=== PATIENT | female | born 1930 | race American Indian/Alaskan Native ===

== ENCOUNTER 2017-02-08 06:15 | Inpatient (IN) | payer MEDICARE, BC ==
[2017-02-08 06:23] VITALS: BMI 30.2
[2017-02-08 07:11] LABS: ALKALINE PHOSPHATASE 79 U/L (38-133); ALT/SGPT 23 U/L (7-56); AST/SGOT 30 U/L (15-39); BILIRUBIN,TOTAL 0.9 mg/dL (0.2-1.3); BLOOD UREA NITROGEN 17 mg/dL (7-21); CALCIUM 9.3 mg/dL (8.4-10.5); CARBON DIOXIDE 27 mmol/L (21-33); CHLORIDE 102 mmol/L (98-107); GFR AFRICAN-AMERICAN > 60; GLUCOSE,RANDOM 111 mg/dL (70-110); SODIUM 140 mmol/L (132-148); TOTAL PROTEIN 7.9 g/dL (5.8-8.3)
--- NOTE | 2017-02-08 07:13 | ED PDOC ---
Arrival/HPI - General Chief Complaint: Weakness/Neurological Deficit Time Seen by Provider: 02/08/17 07:05 Historian: Family (Daughter) - History of Present Illness Narrative History of Present Illness (Text): 02/08/17 07:11 86 year old female whose past medical history includes dementia (baseline confused), hypertension, presents to the emergency department from home with increasing weakness and leg swelling. As per daughter patient has been increasingly weak, refusing to get out of bed. Denies complaints of pain, just body aches. No cough, nausea, vomiting, or other complaints. Symptom Onset: Gradual Symptom Course: Worsening Modifying Factors (Text): None Context: Home Past Medical History - Provider Review Nursing Documentation Reviewed: Yes - Infectious Disease Hx of Infectious Diseases: None - Tetanus Immunization Tetanus Immunization: Unknown - Cardiac Hx Cardiac Disorders: Yes (Cardiac Cath) Hx Hypertension: Yes - Pulmonary Hx Chronic Obstructive Pulmonary Disease (COPD): Yes - Neurological HX Cerebrovascular Accident: Yes (2007) Hx Dementia: Yes - HEENT Hx HEENT Disorder: No - Renal Hx Renal Disorder: No - Endocrine/Metabolic Hx Endocrine Disorders: No - Hematological/Oncological Hx Blood Disorders: No - Integumentary Hx Dermatological Disorder: Yes Other/Comment: outer aspect left foot/heel ankle discolored swollen - Musculoskeletal/Rheumatological Hx Arthritis: Yes Hx Falls: Yes - Gastrointestinal Hx Gastroesophageal Reflux: Yes - Genitourinary/Gynecological Hx Genitourinary Disorders: No Hx Reproductive Disorders: No - Psychiatric Hx Depression: No Hx Emotional Abuse: No Hx Physical Abuse: No Hx Substance Use: No Other/Comment: dementia - Past Surgical History Past Surgical History: Non-Contributing - Surgical History Hx Cardiac Catheterization: Yes (pt does not recall catherization) Hx Cholecystectomy: Yes Hx Thyroidectomy: Yes (partial) Other/Comment: left breast benign cyst, left ovary removed - Anesthesia Hx Anesthesia: No - Suicidal Assessment Feels Threatened In Home Enviroment: No Family/Social History - Physician Review Nursing Documentation Reviewed: Yes Family/Social History: Unknown Family HX Smoking Status: Never Smoked Hx Alcohol Use: No Hx Substance Use: No Hx Substance Use Treatment: No Allergies/Home Meds Allergies/Adverse Reactions: Allergies No Known Allergies Allergy (Verified 02/08/17 06:39) Home Medications: Home Meds Medication Instructions Recorded Confirmed Aspirin [Ecotrin] 81 mg PO DAILY 01/11/16 02/08/17 Celecoxib 200 mg PO DAILY 02/08/17 02/08/17 Memantine HCl 10 mg PO BID 02/08/17 02/08/17 Omeprazole 20 mg PO DAILY 02/08/17 02/08/17 Review of Systems - Review of Systems Systems not reviewed;Unavailable: Dementia Respiratory: absent: Cough Cardiovascular: Other (lower extremity swelling) Gastrointestinal: absent: Nausea, Vomiting Musculoskeletal: Arthralgias Physical Exam Vital Signs Reviewed: Yes Vital Signs Temp Pulse Resp BP Pulse Ox 02/08/17 09:23 74 18 131/56 L 99 02/08/17 06:23 97.9 F 73 18 134/62 99 Temperature: Afebrile Blood Pressure: Normal Pulse: Regular Respiratory Rate: Normal Appearance: Positive for: Well-Appearing, Non-Toxic, Comfortable Pain Distress: None Mental Status: Positive for: Confused (Baseline mental status, hx dementia) - Systems Exam Head: Present: Atraumatic, Normocephalic Pupils: Present: PERRL Extroacular Muscles: Present: EOMI Conjunctiva: Present: Normal Mouth: Present: Moist Mucous Membranes Neck: Present: Normal Range of Motion Respiratory/Chest: Present: Clear to Auscultation, Good Air Exchange. No: Respiratory Distress, Accessory Muscle Use Cardiovascular: Present: Regular Rate and Rhythm, Normal S1, S2. No: Murmurs Abdomen: Present: Normal Bowel Sounds. No: Tenderness, Distention, Peritoneal Signs Back: Present: Normal Inspection Upper Extremity: Present: Normal Inspection. No: Cyanosis, Edema Lower Extremity: Present: Swelling (1+ bilaterally) Neurological: Present: GCS=15, CN II-XII Intact Skin: Present: Warm, Dry, Normal Color. No: Rashes Psychiatric: Present: Other (Baseline confused, hx dementia) Medical Decision Making ED Course and Treatment: Impression: 86 year old female whose past medical history includes dementia ( baseline confused), hypertension, presents to the emergency department from home with increasing weakness and leg swelling. Differential Diagnosis include but are not limited to: Plan: -- EKG, Chest X-ray -- Labs -- Reassess and disposition Prior Visits: Notes and results from previous visits were reviewed. Patient last seen in ED on 11/25/16 for frequent falls and admitted for generalized weakness, syncope Progress Notes: 02/08/17 08:09 noted bnp lasix given. pt with multiple comorbitites, failure to thrive, poor outpt candidate, need PT eval for gait dysfunction, needs inpt admission, iv diuresis 02/08/17 08:[address] price accepted - Lab Interpretations Lab Results: 02/08/17 06:30 02/08/17 06:30 Lab Results 02/08/17 06:30: Troponin I 0.07, NT-Pro-B Natriuret Pep 793 H 02/08/17 06:30: Sodium 140, Potassium 3.9, Chloride 102, Carbon Dioxide 27, Anion Gap 15, BUN 17, Creatinine 0.9, Est GFR ( Amer) > 60, Est GFR (Non- Af Amer) 59, Random Glucose 111 H, Calcium 9.3, Total Bilirubin 0.9, AST 30, ALT 23, Alkaline Phosphatase 79, Total Protein 7.9, Albumin 4.0, Globulin 3.9, Albumin/Globulin Ratio 1.0 L 02/08/17 06:30: WBC 7.6 D, RBC 4.19, Hgb 11.8 L, Hct 35.5 L, MCV 84.7, MCH 28.2 , MCHC 33.2, RDW 13.7, Plt Count 244, MPV 10.1 - RAD Interpretation Narrative RAD Interpretations (Text): Chest X-ray Network Engineer: Quiana Morales MD IMPRESSION: No focal consolidation, significant pleural effusion, or definite pneumothorax identified. Radiology Orders: 02/08/17 06:43 CHEST PORTABLE [RAD] Stat Construction Plant Operator: Radiologist - EKG Interpretation EKG Interpretation (Text): EKG shows NSR at [address]/T wave changes Interpreted by ED Physician: Yes Type: 12 lead EKG - Medication Orders Current Medication Orders: Discontinued Medications Furosemide (Lasix) 20 mg IVP STAT STA Stop: 02/08/17 08:10 Last Admin: 02/08/17 09:23 Dose: 20 mg - Scribe Statement The provider has reviewed the documentation as recorded by the Chi Leyva Provider Scribe Attestation: All medical record entries made by the Chi were at my direction and personally dictated by me. I have reviewed the chart and agree that the record accurately reflects my personal performance of the history, physical exam, medical decision making, and the department course for this patient. I have also personally directed, reviewed, and agree with the discharge instructions and disposition. Disposition/Present on Arrival - Present on Arrival Any Indicators Present on Arrival: No History of DVT/PE: No History of Uncontrolled Diabetes: No Urinary Catheter: No History of Decub. Ulcer: No History Surgical Site Infection Following: None - Disposition Have Diagnosis and Disposition been Completed?: Yes Diagnosis: CHF (congestive heart failure), Failure to thrive, Weakness generalized Disposition: HOSPITALIZED Disposition Time: 08:10 Patient Problems: Current Active Problems Problem Status Onset CHF (congestive heart failure) Acute Failure to thrive Acute Weakness generalized Acute Condition: FAIR
[2017-02-08 07:18] LABS: HEMATOCRIT 35.5 % (36.0-48.0); MEAN CELL VOLUME 84.7 fL (80.0-105.0); MEAN CORPUSCULAR HEMOGLOBIN 28.2 pg (25.0-35.0); MEAN CORPUSCULAR HGB CONC 33.2 g/dl (31.0-37.0); MEAN PLATELET VOLUME 10.1 fl (7.0-11.0); RED CELL DISTRIBUTION WIDTH 13.7 % (11.5-14.5); WHITE BLOOD COUNT 7.6 10^3/ul (4.5-11.0)
[2017-02-08 07:23] LABS: POTASSIUM 3.9 mmol/L (3.6-5.0)
[2017-02-08 07:56] LABS: TROPONIN I 0.07 ng/mL
--- NOTE | 2017-02-08 08:30 | RAD ---
HISTORY: weakness COMPARISON: Chest x-ray performed 11/25/16 TECHNIQUE: Chest, one view. FINDINGS: Examination limited by habitus. External cardiac monitoring leads. LUNGS: No focal consolidation. Please note that chest x-ray has limited sensitivity for the detection of pulmonary masses. PLEURA: No significant pleural effusion identified. No definite pneumothorax. CARDIOVASCULAR: Heart size appears within normal limits. Atherosclerotic calcifications of the aorta. OSSEOUS STRUCTURES: Degenerative changes of the spine. VISUALIZED UPPER ABDOMEN: Unremarkable. OTHER FINDINGS: Metallic clips project over the left lower neck. IMPRESSION: No focal consolidation, significant pleural effusion, or definite pneumothorax identified.
--- NOTE | 2017-02-08 09:08 | CARD ---
APPROVED REPORT EKG Measurement Heart [id number] <Conclusion> Normal sinus rhythm Voltage criteria for left ventricular hypertrophy Abnormal ECG
[2017-02-08 09:18] LABS: URINE BILIRUBIN NEGATIVE (NEGATIVE); URINE BLOOD TRACE-INTACT (NEGATIVE); URINE GLUCOSE (UA) NEGATIVE (NEGATIVE); URINE KETONE NEGATIVE (NEGATIVE); URINE LEUKOCYTE ESTERASE NEGATIVE Leu/uL (NEGATIVE); URINE PROTEIN TRACE mg/dL (<30 mg/dL)
[2017-02-08 09:31] LABS: URINE APPEARANCE CLEAR (CLEAR); URINE COLOR YELLOW (YELLOW)
[2017-02-08 09:36] LABS: URINE BACTERIA FEW (NEG); URINE RBC 0 - 2 /hpf (0-2)
[2017-02-08] MEDS ORDERED: Pneumococcal 23-Valent Vaccine IM ONE (14:13)
--- NOTE | 2017-02-09 11:16 | HP ---
CHIEF COMPLAINT: Generalized weakness, failure to thrive, decreased activity and shortness of breath . HISTORY OF PRESENT ILLNESS: This is an 86-year-old woman we have known for many years who was home t aken care of by her devoted family. For the recent case, she has had slight change in her mental sta tus, more groggy, lethargic, weak, less ambulatory with poor p.o. intake of food and fluids on the mo rning of admission and the evening before. She was noted to be more short of breath with trying to a mbulate about the room prompting her family to bring her to the Emergency Room. In the ER, there is no clear evidence of infection, but BNP was elevated. She was found to be in mild congestive heart f ailure and arrangements were made for her to be admitted. PAST MEDICAL HISTORY: Significant for mild dementia, in 2007. She has a history of TIA, Cunningham tt's esophagus, diverticulitis, COPD, gastroesophageal reflux disease and hypertension. She is statu s post thyroidectomy. She also has a history of osteoarthritis, spinal stenosis and is status post c holecystectomy. She has a history of coronary artery disease. She is status post left oophorectomy and biopsy of a benign left breast cyst. SOCIAL HISTORY: She does not smoke, never did. Does not drink alcohol. ALLERGIES: She has no known allergies to medications. CURRENT MEDICATIONS: At the time of admission, medications include aspirin, omeprazole, lisinopril, Tylenol, Namenda and Celebrex. REVIEW OF SYSTEMS: Otherwise, unremarkable. I am uncertain as to the reliability of the patient's a nswers and response to my questioning. PHYSICAL EXAMINATION: GENERAL: The patient was seen in the Emergency Room, slot #1, this Saturday morning. She is awake and alert, but a little bit confused, does not clearly focus on detailed conversation. She is being see n with her 2 daughters at the bedside. HEAD AND NECK: Unremarkable. Conjunctivae are pink. Mucous membranes are moist. Neck is supple wi thout masses. There is no JVD noted. Thyroid is not palpable. LUNGS: Show good aeration, right and left, with rales at both right and left bases. HEART: Regular, not tachycardic. ABDOMEN: Soft, mildly overweight, nontender with no guarding or rebound. No palpable masses. EXTREMITIES: Show +1 to +2 pitting edema in both lower extremities, more so on the right as shown to the patient's daughters. LABORATORY DATA: On admission shows a white count to be normal at 7.6, H and H of 11 and 35. Chemis tries are essentially unremarkable except for a glucose of 111. A BNP of 793. Urinalysis is essenti ally unremarkable except for dark concentrated urine with a specific gravity of 1.025 and a few bacte katlyn noted in the urine. IMPRESSION: 1. Mild congestive heart failure. 2. Failure to thrive. 3. History of hypertension. 4. History of coronary artery disease. 5. Osteoarthritis. 6. History of mild dementia. PLAN: IV Lasix given in the ER. Will continue tomorrow and reassess clinical situation. Continue h ome medications including Namenda, proton pump inhibitor or H2 alfonso, p.r.n. Tylenol for arthritis pain, lisinopril for hypertension and her baby aspirin for coronary and atherosclerotic cerebrovascul ar underlying disease. I spoke with the family about discharge planning and they request she be eval uated for [facility] rehab facility for some of the course of subacute rehabilitation after this hospi clif admission. I will ask caseworkers and social work services to work in that direction. The case was discussed at length with in the Emergency Room as well as with the family. I spoke wit h them about their ability to care for the mom at home and the need for physical therapy and close me dical outpatient followup after returning home. Pan Be MD cc: [id number] TT: 02/09/2017 11:15:40
[2017-02-09 15:59] LABS: URINE BILIRUBIN NEGATIVE (NEGATIVE); URINE BLOOD TRACE-INTACT (NEGATIVE); URINE GLUCOSE (UA) NEGATIVE (NEGATIVE); URINE KETONE NEGATIVE (NEGATIVE); URINE LEUKOCYTE ESTERASE SMALL Leu/uL (NEGATIVE); URINE PROTEIN NEGATIVE mg/dL (<30 mg/dL); URINE UROBILINOGEN 0.2 E.U./dL (<1 E.U./dL)
[2017-02-09 16:02] LABS: URINE APPEARANCE CLEAR (CLEAR); URINE COLOR YELLOW (YELLOW)
[2017-02-09 16:13] LABS: URINE BACTERIA TRACE (NEG); URINE EPITHELIAL CELLS 0 - 2 /hpf (0-5); URINE RBC 0 - 2 /hpf (0-2); URINE WBC 0 - 2 /hpf (0-6)
[2017-02-10 08:49] LABS: ADD MANUAL DIFF? NO
[2017-02-10 09:08] LABS: BASO # 0.03 K/mm3 (0.0-2.0); BASO % 0.5 % (0.0-3.0); EOS # 0.1 (0.0-0.7); EOS % 2.1 % (1.5-5.0); GRAN # 3.18 (1.4-6.5); GRAN % 52.3 % (50.0-68.0); HEMATOCRIT 36.5 % (36.0-48.0); LYMPH # 2.2 (1.2-3.4); LYMPH % 36.5 % (22.0-35.0); MEAN CELL VOLUME 85.9 fL (80.0-105.0); MEAN CORPUSCULAR HGB CONC 32.6 g/dl (31.0-37.0); MEAN PLATELET VOLUME 10.1 fl (7.0-11.0); MONO # 0.5 (0.1-0.6); MONO % 8.6 % (1.0-6.0); PLATELET COUNT 257 10^3/uL (120.0-450.0); RED CELL DISTRIBUTION WIDTH 13.7 % (11.5-14.5); WHITE BLOOD COUNT 6.1 10^3/ul (4.5-11.0)
[2017-02-10 09:14] VITALS: RESP 17
[2017-02-10 09:17] LABS: BLOOD UREA NITROGEN 16 mg/dL (7-21); CARBON DIOXIDE 29 mmol/L (21-33); CHLORIDE 104 mmol/L (98-107); GFR AFRICAN-AMERICAN > 60; GLUCOSE,RANDOM 83 mg/dL (70-110); POTASSIUM 3.7 mmol/L (3.6-5.0); SODIUM 141 mmol/L (132-148)
[2017-02-10 12:20] LABS: ERYTHROCYTE SEDIMENTATION RATE 44 mm/hr (0.0-20.0)
--- NOTE | 2017-02-10 21:14 | PN ---
DATE: 02/09/2017 The patient was seen this Saturday afternoon near the noon hour, resting comfortably out of bed in a chair in room 376, bed 2. She feels much less short of breath today. Leg edema has decreased. Her daughter is present at the bedside. PHYSICAL EXAMINATION: GENERAL: The patient is awake and alert. LUNGS: Show good aeration with basilar rales continuing to be present on exam. HEART: Regular, not tachycardic. EXTREMITIES: Show +1 to +2 soft edema, much less than yesterday, but still present. IMPRESSION: 1. Congestive heart failure. PLAN: We will continue IV Lasix, out of bed, physical therapy, ambulation for possible transfer to [facility] facility at [facility] on Saturday. Pan Be MD cc: [id number] TT: 02/10/2017 21:13:27 Confirmation # [id number] Dictation # [id number]
--- NOTE | 2017-02-10 21:16 | PN ---
DATE: 02/10/2017 The patient was seen this Saturday afternoon in room 372, bed 2. She is sitting out of bed in a chair, no visitors present today. She is awake and alert and in good spirits. PHYSICAL EXAMINATION: HEAD AND NECK: Unremarkable. LUNGS: Show good aeration, basilar rales have improved quite a bit hard. HEART: Not tachycardic. EXTREMITIES: Show only trace edema. PLAN: We will continue IV diuresis for now and change to p.o. furosemide tomorrow when she will prob ably be ready for transfer to [facility] where she had been before and benefit ed greatly from physical therapy. Pan Be MD cc: [id number] TT: 02/10/2017 21:15:22 Confirmation # [id number] Dictation # [id number] franklyn
--- NOTE | 2017-02-11 07:51 | PQF CHF ---
This form is a permanent part of the medical record Dr. Be, Your notes indicate that patient was admitted with CHF. This diagnosis requires more specificity as to the type and severity. Please document if known. Clarification of your documentation is requested to better reflect the severity of illness and intensity of treatment of your patient. Indicators present [x] Diagnosis of CHF and/or history of CHF [] BNP > 200 [] Imaging Finding of Pulmonary Edema /Pleural Effusions [] Fluid/Volume Overload [x] Pitting edema [] Ejection Fraction < 40% (Indicative of Systolic Heart Failure) [] Ejection Fraction > 40% (Indicative of Diastolic Heart Failure) [x] Dyspnea / Orthopenea / Paroxysmal Nocturnal Dyspnea [] Other: Location in the medical record that reflects the above clinical findings: [] Treatment Provided: [] Lasix IV PHYSICIAN'S RESPONSE Based on your medical judgment of the clinical indicators outlined above, are you treating this patient for a known or suspected: [] Acute CHF [] Systolic [] Diastolic [] Combined [] Chronic CHF [] Systolic [] Diastolic [] Combined [X] Acute on Chronic CHF []Systolic [] Diastolic [X] Combined [] CHF due hypertension [] Acute systolic []Chronic systolic [] Acute/ chronic systolic [] Other, please indicate: [] [] If Unable to Determine, please check the box, sign and date. Present On Admission (POA) Indicator: [X] Present at the time of admission [] Not present at the time of admission [] Clinically Undetermined In responding to this query, please exercise your independent professional judgment. The fact that a question is asked does not imply that any particular answer is desired or expected. Thank you for your clarification on this documentation. If you have any questions please call:[ ] * Thank you, [ ] Carlos Steinberg [facility] #[id number] automatic brine mixer operator JOSÉ
[2017-02-11 09:10] VITALS: BP 162/78; PULSE 61
[2017-02-11 11:20] VITALS: TEMP 97.6; O2SAT 99
--- NOTE | 2017-05-20 09:04 | DS ---
HISTORY OF PRESENT ILLNESS: The patient is an 86-year-old female who presented to the emergency room with generalized weakness, failure to thrive, decreased activity and shortness of breath. She is known to have a history of mild dementia, history of TIA, Riley's esophagitis, diverticulitis, COPD, hypertension and gastroesophageal reflux. She is status post thyroidectomy. She also has a history of osteoarthritis, spinal stenosis and is status post cholecystectomy. She has a history of coronary artery disease, status post left oophorectomy and biopsy of a benign left breast cyst. The patient improved on IV fluids and diuresis during her hospital stay. She was changed from intravenous to oral furosemide, and arrangements were made for her to be transferred to [facility] for physical therapy and ambulatory strength. FINAL DIAGNOSES: 1. Weakness. 2. Congestive heart failure. 3. Status post cerebrovascular accident. Darron Be MD
== END 2017-02-11 16:10 | DRG 293 ==
LOC: ED 06:15 → ERH 08:10 → 3RSO 10:52
PROVIDERS: ADMIT Internal Medicine; ATTEND Internal Medicine
DX: I11.0 Hypertensive heart disease with heart failure (principal); I50.43 Acute on chronic combined systolic (congestive) and diastolic (congestive) heart failure; J44.9 Chronic obstructive pulmonary disease, unspecified; F03.90 Unspecified dementia, unspecified severity, without behavioral disturbance, psychotic disturbance, mood disturbance, and anxiety; R62.7 Adult failure to thrive; K22.70 Barrett's esophagus without dysplasia; K21.9 Gastro-esophageal reflux disease without esophagitis; I25.10 Atherosclerotic heart disease of native coronary artery without angina pectoris; M19.90 Unspecified osteoarthritis, unspecified site; M48.00 Spinal stenosis, site unspecified; Z86.73 Personal history of transient ischemic attack (TIA), and cerebral infarction without residual deficits; Z90.49 Acquired absence of other specified parts of digestive tract

== ENCOUNTER 2017-04-11 08:19 | Observation (INO) | payer MEDICARE, BC ==
[2017-04-11 08:39] VITALS: BMI 29.2
--- NOTE | 2017-04-11 09:09 | ED PDOC ---
Arrival/HPI - General Chief Complaint: Trauma Time Seen by Provider: 04/11/17 08:25 Historian: Patient, Family - History of Present Illness Narrative History of Present Illness (Text): 04/11/17 08:56 An 86 year old female, whose past medical history includes hypertension and dementia, presents to the emergency department complaining of knee pain and some chest pain. Patient's grandson reports patient was found hunched over a chair by the bed, on her knees, unsure if patient fell this morning. Grandson reports, patient was complaining of pain in the knee, arms and back. Patient's daughter is caregiver and heard a noise of patient falling. Patient reports she was getting out of bed where she lost balance and fell, denies any syncopal episode. Patient currently has some chest pain and left knee pain but denies any other complaints at this time. Time/Duration: 1-3 hours Symptom Onset: Sudden Symptom Course: Unchanged Activities at Onset: Rest Context: Home Past Medical History - Provider Review Nursing Documentation Reviewed: Yes - Infectious Disease Hx of Infectious Diseases: None - Tetanus Immunization Tetanus Immunization: Unknown - Cardiac Hx Hypertension: Yes - Pulmonary Hx Chronic Obstructive Pulmonary Disease (COPD): Yes - Neurological HX Cerebrovascular Accident: Yes - HEENT Hx HEENT Disorder: No - Renal Hx Renal Disorder: No - Endocrine/Metabolic Hx Endocrine Disorders: No - Hematological/Oncological Hx Blood Disorders: No - Integumentary Hx Dermatological Disorder: Yes Other/Comment: outer aspect left foot/heel ankle discolored swollen - Musculoskeletal/Rheumatological Hx Arthritis: Yes - Gastrointestinal Hx Gastroesophageal Reflux: Yes - Genitourinary/Gynecological Hx Genitourinary Disorders: No - Psychiatric Hx Depression: No Hx Emotional Abuse: No Hx Physical Abuse: No Hx Substance Use: No Other/Comment: dementia - Past Surgical History Past Surgical History: Non-Contributing - Surgical History Hx Cardiac Catheterization: Yes (pt does not recall catherization) Hx Cholecystectomy: Yes Other/Comment: left breast benign cyst, left ovary removed - Anesthesia Hx Anesthesia: No - Suicidal Assessment Feels Threatened In Home Enviroment: No Family/Social History - Physician Review Nursing Documentation Reviewed: Yes Family/Social History: Other (nc) Smoking Status: Never Smoked Hx Alcohol Use: No Hx Substance Use: No Hx Substance Use Treatment: No Allergies/Home Meds Allergies/Adverse Reactions: Allergies No Known Allergies Allergy (Verified 02/08/17 12:29) Home Medications: Home Meds Medication Instructions Recorded Confirmed Memantine HCl 10 mg PO BID 02/08/17 04/11/17 Furosemide [Lasix] 20 mg PO DAILY 04/11/17 04/11/17 raNITIdine [Zantac Soln 5ml] 150 mg PO DAILY 04/11/17 04/11/17 Review of Systems - Physician Review All systems were reviewed & negative as marked: Yes - Review of Systems Cardiovascular: Chest Pain Musculoskeletal: Other (knee pain) Physical Exam Vital Signs Reviewed: Yes Vital Signs Temp Pulse Resp BP Pulse Ox 04/11/17 15:26 65 18 135/65 98 04/11/17 13:55 67 18 138/68 98 04/11/17 12:25 65 18 141/71 98 04/11/17 11:39 67 18 143/68 98 04/11/17 10:00 68 16 145/70 98 04/11/17 08:20 97.7 F 71 16 146/72 98 Temperature: Afebrile Blood Pressure: Normal Pulse: Regular Respiratory Rate: Normal Appearance: Positive for: Well-Appearing, Non-Toxic, Comfortable Pain Distress: None - Systems Exam Head: Present: Atraumatic, Normocephalic Pupils: Present: PERRL Extroacular Muscles: Present: EOMI Conjunctiva: Present: Normal Mouth: Present: Moist Mucous Membranes Neck: Present: Normal Range of Motion Respiratory/Chest: Present: Clear to Auscultation, Good Air Exchange, Tender to Palpation (chest wall). No: Respiratory Distress, Accessory Muscle Use Cardiovascular: Present: Regular Rate and Rhythm, Normal S1, S2. No: Murmurs Abdomen: Present: Normal Bowel Sounds. No: Tenderness, Distention, Peritoneal Signs Back: Present: Normal Inspection Upper Extremity: Present: Tenderness (to lateral L upper arm). No: Cyanosis, Edema Lower Extremity: Present: Tenderness (anterior aspect of L knee). No: Edema Neurological: Present: GCS=15, CN II-XII Intact, Motor Func Grossly Intact, Normal Sensory Function, Other (disoriented to situation) Skin: Present: Warm, Dry, Normal Color, Abrasion (superficial L anterior knee). No: Rashes Psychiatric: Present: Alert, Normal Concentration Medical Decision Making ED Course and Treatment: 04/11/17 09:09 EKG: Ordered, reviewed, and independently interpreted the EKG. Rate : 64 BPM Rhythm : NSR Interpretation : Nonspecific T wave abnormality, normal axis 04/11/17 10:50 CHEST RADIOGRAPH, 1 VIEW Creator : Darron Domingo MD IMPRESSION: No active disease. 04/11/17 10:50 Radiographs of the pelvis Creator : Darron Domingo MD IMPRESSION: Unremarkable radiographs of the pelvis. 04/11/17 10:50 Left Knee Radiographs Creator : Darron Domingo MD IMPRESSION: Normal radiographs of the left knee. 04/11/17 14:52 CT HEAD WITHOUT CONTRAST Creator : Darron Domingo MD IMPRESSION: No acute findings. 04/11/17 15:11 pt very weak- unable to walk more than a couple steps, also seems confused and altered unclear etiology. will need to be admitted for further eval, follow up cultures. disc w Dr Oliveros who will admit. - Lab Interpretations Lab Results: 04/11/17 13:45 04/11/17 13:45 Lab Results 04/11/17 13:45: Sodium 141, Potassium 3.3 L, Chloride 103, Carbon Dioxide 33, Anion Gap 8 L, BUN 8, Creatinine 0.9, Est GFR ( Amer) > 60, Est GFR (Non- Af Amer) 59, Random Glucose 98, Calcium 8.9, Total Bilirubin 0.9, AST 29, ALT 16 , Alkaline Phosphatase 82, Troponin I 0.06, Total Protein 7.1, Albumin 3.6, Globulin 3.5, Albumin/Globulin Ratio 1.0 L 04/11/17 13:45: WBC 5.8, RBC 4.13, Hgb 11.5 L, Hct 35.2 L, MCV 85.2, MCH 27.8, MCHC 32.7, RDW 13.6, Plt Count 262, MPV 9.5, Gran % 53.7, Lymph % (Auto) 37.3 H , [place] % (Auto) 6.8 H, Eos % (Auto) 1.7, Baso % (Auto) 0.5, Gran # 3.13, Lymph # 2.2, [place] # 0.4, Eos # 0.1, Baso # 0.03 04/11/17 13:40: Urine Color Yellow, Urine Appearance Clear, Urine pH 7.5, Ur Specific Dudley 1.015, Urine Protein Negative, Urine Glucose (UA) Negative, Urine Ketones Negative, Urine Blood Negative, Urine Nitrate Negative, Urine Bilirubin Negative, Urine Urobilinogen 0.2, Ur Leukocyte Esterase Trace H, Urine RBC Negative, Urine WBC 0 - 2, Ur Epithelial Cells 6 - 8, Urine Bacteria Trace - RAD Interpretation Radiology Orders: 04/11/17 08:47 CHEST ONE VIEW [RAD] Stat KNEE LEFT 2 VIEWS (AP & LAT) [RAD] Stat PELVIS ONE VIEW [RAD] Stat 04/11/17 14:08 HEAD W/O CONTRAST [CT] Stat - EKG Interpretation Interpreted by ED Physician: Yes Type: 12 lead EKG - Medication Orders Current Medication Orders: Discontinued Medications Sodium Chloride (Sodium Chloride 0.9%) 500 mls @ 999 mls/hr IV .Q31M STA Stop: 04/11/17 12:27 Last Admin: 04/11/17 12:30 Dose: 999 mls/hr Ibuprofen (Motrin Tab) 600 mg PO STAT STA Stop: 04/11/17 08:49 Last Admin: 04/11/17 10:11 Dose: 600 mg - Scribe Statement The provider has reviewed the documentation as recorded by the Chi Zepeda Provider Scribe Attestation: All medical record entries made by the Chi were at my direction and personally dictated by me. I have reviewed the chart and agree that the record accurately reflects my personal performance of the history, physical exam, medical decision making, and the department course for this patient. I have also personally directed, reviewed, and agree with the discharge instructions and disposition. Disposition/Present on Arrival - Present on Arrival Any Indicators Present on Arrival: No History of DVT/PE: No History of Uncontrolled Diabetes: No Urinary Catheter: No History of Decub. Ulcer: No History Surgical Site Infection Following: None - Disposition Have Diagnosis and Disposition been Completed?: Yes Diagnosis: Frequent falls, Weakness generalized, Altered mental status Disposition: HOME/ ROUTINE Disposition Time: 15:11 Patient Problems: Current Active Problems Problem Status Onset Altered mental status Acute Frequent falls Acute Weakness generalized Acute Condition: GUARDED
--- NOTE | 2017-04-11 10:49 | RAD ---
PROCEDURE: Radiographs of the pelvis. HISTORY: fall COMPARISON: None. FINDINGS: BONES: Pelvic Bones: Unremarkable. Hips: Grossly unremarkable. JOINTS: Sacroiliac Joints: Unremarkable. Pubic Symphysis: Unremarkable. OTHER FINDINGS: None. IMPRESSION: Unremarkable radiographs of the pelvis.
--- NOTE | 2017-04-11 10:49 | RAD ---
PROCEDURE: Left Knee Radiographs. HISTORY: Pain. COMPARISON: None. FINDINGS: BONES: Normal. No fracture. JOINTS: Normal. No osteoarthritis. JOINT EFFUSION: None. OTHER FINDINGS: None. IMPRESSION: Normal radiographs of the left knee.
--- NOTE | 2017-04-11 10:50 | RAD ---
PROCEDURE: CHEST RADIOGRAPH, 1 VIEW HISTORY: fall COMPARISON: 02/08/2017 FINDINGS: LUNGS: Clear. PLEURA: No pneumothorax or pleural fluid seen. CARDIOVASCULAR: Normal. OSSEOUS STRUCTURES: No significant abnormalities. VISUALIZED UPPER ABDOMEN: Normal. OTHER FINDINGS: None. IMPRESSION: No active disease.
[2017-04-11] MEDS ORDERED: Sodium Chloride 0.9% 500 ML IV STA (11:57)
--- NOTE | 2017-04-11 12:04 | CARD ---
APPROVED REPORT EKG Measurement Heart [id number] [id number] <Conclusion> Normal sinus rhythm Moderate voltage criteria for LVH, may be normal variant Nonspecific T wave abnormality Abnormal ECG
[2017-04-11 13:58] LABS: PH,URINE 7.5 (4.7-8.0); URINE BILIRUBIN NEGATIVE (NEGATIVE); URINE BLOOD NEGATIVE (NEGATIVE); URINE GLUCOSE (UA) NEGATIVE (NEGATIVE); URINE LEUKOCYTE ESTERASE TRACE Leu/uL (NEGATIVE); URINE NITRATE NEGATIVE (NEGATIVE); URINE PROTEIN NEGATIVE mg/dL (<30 mg/dL); URINE UROBILINOGEN 0.2 E.U./dL (<1 E.U./dL)
[2017-04-11 13:59] LABS: BASO # 0.03 K/mm3 (0.0-2.0); BASO % 0.5 % (0.0-3.0); EOS # 0.1 (0.0-0.7); EOS % 1.7 % (1.5-5.0); GRAN # 3.13 (1.4-6.5); GRAN % 53.7 % (50.0-68.0); HEMOGLOBIN 11.5 gm/dL (12.0-16.0); LYMPH # 2.2 (1.2-3.4); LYMPH % 37.3 % (22.0-35.0); MEAN CELL VOLUME 85.2 fL (80.0-105.0); MEAN CORPUSCULAR HEMOGLOBIN 27.8 pg (25.0-35.0); MEAN CORPUSCULAR HGB CONC 32.7 g/dl (31.0-37.0); MEAN PLATELET VOLUME 9.5 fl (7.0-11.0); MONO # 0.4 (0.1-0.6); MONO % 6.8 % (1.0-6.0); PLATELET COUNT 262 10^3/uL (120.0-450.0); RBC 4.13 10^6/uL (3.5-6.1); RED CELL DISTRIBUTION WIDTH 13.6 % (11.5-14.5); WHITE BLOOD COUNT 5.8 10^3/ul (4.5-11.0)
[2017-04-11 14:00] LABS: URINE APPEARANCE CLEAR (CLEAR); URINE COLOR YELLOW (YELLOW)
[2017-04-11 14:06] LABS: URINE RBC NEGATIVE /hpf (0-2); URINE WBC 0 - 2 /hpf (0-6)
[2017-04-11 14:07] LABS: URINE BACTERIA TRACE (NEG)
[2017-04-11 14:08] LABS: ALBUMIN 3.6 g/dL (3.0-4.8); ALT/SGPT 16 U/L (7-56); AST/SGOT 29 U/L (15-39); BLOOD UREA NITROGEN 8 mg/dL (7-21); CALCIUM 8.9 mg/dL (8.4-10.5); GFR AFRICAN-AMERICAN > 60; GFR NON-AFRICAN AMERICAN 59
[2017-04-11 14:19] LABS: TROPONIN I 0.06 ng/mL
--- NOTE | 2017-04-11 14:48 | CT ---
PROCEDURE: CT HEAD WITHOUT CONTRAST. HISTORY: fall COMPARISON: 11/25/2016 TECHNIQUE: Axial computed tomography images were obtained through the head/brain without intravenous contrast. Radiation dose: Total exam DLP = 722 mGy-cm. This CT exam was performed using one or more of the following dose reduction techniques: Automated exposure control, adjustment of the mA and/or kV according to patient size, and/or use of iterative reconstruction technique. FINDINGS: HEMORRHAGE: No intracranial hemorrhage. BRAIN: No mass effect or edema. Chronic microvascular changes in the periventricular white matter. VENTRICLES: Unremarkable. No hydrocephalus. CALVARIUM: Unremarkable. PARANASAL SINUSES: Unremarkable as visualized. No significant inflammatory changes. MASTOID AIR CELLS: Unremarkable as visualized. No inflammatory changes. OTHER FINDINGS: None. IMPRESSION: No acute findings
[2017-04-11] MEDS ORDERED: Potassium Chloride 10 mEq ER Tab PO STA (17:50)
[2017-04-12] MEDS ORDERED: Pneumococcal 23-Valent Vaccine IM ONE (00:29)
[2017-04-12 08:32] VITALS: BP 144/72; PULSE 68; RESP 18; TEMP 97.3; O2SAT 96
[2017-04-12 09:42] LABS: BASO # 0.02 K/mm3 (0.0-2.0); BASO % 0.4 % (0.0-3.0); EOS # 0.2 (0.0-0.7); EOS % 2.8 % (1.5-5.0); GRAN # 3.09 (1.4-6.5); GRAN % 57.9 % (50.0-68.0); LYMPH # 1.8 (1.2-3.4); LYMPH % 33.7 % (22.0-35.0); MEAN CELL VOLUME 86.8 fL (80.0-105.0); MEAN CORPUSCULAR HEMOGLOBIN 27.9 pg (25.0-35.0); MEAN CORPUSCULAR HGB CONC 32.2 g/dl (31.0-37.0); MEAN PLATELET VOLUME 9.7 fl (7.0-11.0); MONO # 0.3 (0.1-0.6); MONO % 5.2 % (1.0-6.0); PLATELET COUNT 264 10^3/uL (120.0-450.0); RBC 3.94 10^6/uL (3.5-6.1); RED CELL DISTRIBUTION WIDTH 13.7 % (11.5-14.5); WHITE BLOOD COUNT 5.3 10^3/ul (4.5-11.0)
[2017-04-12] MEDS ORDERED: Potassium Chloride 20 mEq ER Tab PO SCH (09:45)
[2017-04-12 09:49] LABS: ALB/GLOB RATIO 1.1 (1.1-1.8); ALBUMIN 3.5 g/dL (3.0-4.8); ALT/SGPT 20 U/L (7-56); AST/SGOT 25 U/L (15-39); BLOOD UREA NITROGEN 10 mg/dL (7-21); CALCIUM 8.8 mg/dL (8.4-10.5); GFR AFRICAN-AMERICAN > 60; GFR NON-AFRICAN AMERICAN > 60; MAGNESIUM 1.9 mg/dL (1.7-2.2)
== END 2017-04-12 15:11 | disposition home health service (06) ==
LOC: ED 08:19 → ERH 15:12 → INTOOBSV 15:12 → ERH 16:51 → 5RSO 18:05
PROVIDERS: ADMIT Internal Medicine; ATTEND Internal Medicine
DX: R53.1 Weakness (principal); R41.82 Altered mental status, unspecified; R29.6 Repeated falls; R07.9 Chest pain, unspecified; M25.562 Pain in left knee; F03.90 Unspecified dementia, unspecified severity, without behavioral disturbance, psychotic disturbance, mood disturbance, and anxiety; I10 Essential (primary) hypertension; J44.9 Chronic obstructive pulmonary disease, unspecified; K21.9 Gastro-esophageal reflux disease without esophagitis; Z86.73 Personal history of transient ischemic attack (TIA), and cerebral infarction without residual deficits
CPT/HCPCS: 36415; 70450; 71010; 72170; 73560; 80053; 81001; 83735; 84484; 85025; 87040; 87086; 87181; 93005; 97116; 97161; 99285; G0378; G8978; G8979; J7040

== ENCOUNTER 2018-01-09 08:48 | Inpatient (IN) | payer MEDICARE, BC ==
--- NOTE | 2018-01-09 09:17 | ED PDOC ---
Arrival/HPI - General Time Seen by Provider: 01/09/18 08:49 Historian: Patient, Family (daughter) - History of Present Illness Narrative History of Present Illness (Text): 01/09/18 09:10 A 87 year old female, whose past medical history includes hypertension and dementia, whom is accompanied by daughter who is the manager wound, presents to the emergency department with change in mental status over past 1-2 days. Patient's daughter reports patient is normally ambulatory and talkative. However, patient appears to be more confused than baseline. Daughter also mentions patient has had decreased appetite since yesterday. No PMD Time/Duration: < week (1-2 days change in mental status, 1 day decreased appetite change) Symptom Onset: Sudden Symptom Course: Unchanged Past Medical History - Provider Review Nursing Documentation Reviewed: Yes - Infectious Disease Hx of Infectious Diseases: None - Tetanus Immunization Tetanus Immunization: Unknown - Cardiac Hx Hypertension: Yes - Pulmonary Hx Chronic Obstructive Pulmonary Disease (COPD): Yes - Neurological HX Cerebrovascular Accident: Yes - HEENT Hx HEENT Disorder: No - Renal Hx Renal Disorder: No - Endocrine/Metabolic Hx Endocrine Disorders: No - Hematological/Oncological Hx Blood Disorders: No - Integumentary Hx Dermatological Disorder: Yes Other/Comment: outer aspect left foot/heel ankle discolored swollen - Musculoskeletal/Rheumatological Hx Arthritis: Yes - Gastrointestinal Hx Gastroesophageal Reflux: Yes - Genitourinary/Gynecological Hx Genitourinary Disorders: No - Psychiatric Hx Depression: No Hx Emotional Abuse: No Hx Physical Abuse: No Hx Substance Use: No Other/Comment: dementia - Past Surgical History Past Surgical History: Non-Contributing - Surgical History Hx Cardiac Catheterization: Yes (pt does not recall catherization) Hx Cholecystectomy: Yes Other/Comment: left breast benign cyst, left ovary removed - Anesthesia Hx Anesthesia: No - Suicidal Assessment Feels Threatened In Home Enviroment: No Family/Social History - Physician Review Nursing Documentation Reviewed: Yes Family/Social History: No Known Family HX Smoking Status: Never Smoked Hx Alcohol Use: No Hx Substance Use: No Hx Substance Use Treatment: No Allergies/Home Meds Allergies/Adverse Reactions: Allergies No Known Allergies Allergy (Verified 01/09/18 09:20) Home Medications: Home Meds Medication Instructions Recorded Confirmed Memantine HCl 10 mg PO BID 02/08/17 01/09/18 Furosemide [Lasix] 20 mg PO DAILY 04/11/17 01/09/18 raNITIdine [Zantac Soln 5ml] 150 mg PO DAILY 04/11/17 01/09/18 Aspirin [Aspirin Chewable] 81 mg PO DAILY 01/09/18 01/09/18 Review of Systems - Review of Systems Systems not reviewed;Unavailable: Dementia Constitutional: Fatigue. absent: Fevers Respiratory: absent: SOB Cardiovascular: absent: Chest Pain Gastrointestinal: absent: Abdominal Pain Genitourinary Female: Urine Output Changes Skin: absent: Rash Neurological: Speech Changes. absent: Headache Hemo/Lymphatic: absent: Easy Bleeding Physical Exam - Physical Exam Narrative Physical Exam (Text): Head: Atraumatic. Normocephalic. Eyes: EOMI. Conjunctivae are not pale. ENT: Mucous membranes are moist and intact. Oropharynx is clear and symmetric. Neck: Supple. Full ROM. No JVD. No lymphadenopathy. Cardiovascular: Regular rate. Regular rhythm. Systolic murmur. Distal pulses are 2+ and symmetric. Pulmonary/Chest: No evidence of respiratory distress. Clear to auscultation bilaterally. No wheezing, rales or rhonchi. Abdominal: Soft and non-distended. There is no tenderness. No rebound, guarding, or rigidity. No organomegaly. Good bowel sounds. Back: No CVA tenderness. Pelvic: foul odor to urine in diaper Extremities: Bilateral lower extremity edema. No cyanosis. No clubbing. Full range of motion in all extremities. No calf tenderness. Skin: Skin is warm and dry. No petechiae. No purpura. Neurological: Sleepy but arousable with verbal stimuli, will move all extremities. NO focal weakness noted. No facial droop. Psychiatric: Poor eye contact. Vital Signs Reviewed: Yes Vital Signs Temp Pulse Pulse Resp BP Pulse Ox 01/09/18 16:10 99.2 F 77 77 16 122/56 L 01/09/18 14:09 77 16 122/56 L 98 01/09/18 13:13 78 18 132/73 96 01/09/18 11:31 82 18 142/76 98 01/09/18 10:28 140/80 01/09/18 09:10 99.2 F 88 17 147/87 99 Temperature: Afebrile Appearance: Positive for: Ill-Appearing Mental Status: Positive for: Confused Medical Decision Making ED Course and Treatment: 01/09/18 09:15 Impression: 87 year old female with change in mental status, confusion (more than baseline), and decreased appetite. Differential Diagnosis included but are not limited to: cva, sepsis, uti, cad, chf Plan: -- EKG -- Head CT -- Chest X-ray -- Labs -- Blood Culture -- Urine Culture -- Influenza A B stat -- Urinalysis -- Reassess and disposition Prior Visits: Notes and results from previous visits were reviewed. Patient was last seen in the emergency department on 04/11/2017 for knee pain and chest pain. Patient was d/c home. Progress Notes: History supplemented by daughter who report that over past 1-2 days she has altered mental status and decreased appetite. UTI noted. Suspect possible component of uti, r/o sepsis. No respiratory distress noted. No focal weakness noted. Given elevated BNP will administer lasix. iv antibiotics initiated. 01/09/2018 10:01 Chest X-ray IMPRESSION: No active disease. Dictator: Darron Iyer MD 01/09/2018 10:[address] IMPRESSION: No acute findings. Dictator: Darron Iyer MD Troponin is 0.12. I am suspicous of component of cardiac disease, although no acute st elevations noted. Patient does not communicate chest pain or exhibit any respiratory distress. Case d/w DR. Angel Be, will consult cardiology, admit to telemetry for ams, uti, r/o sepsis, cardiac monitoring, neuro monitoring, r/o MO. - Lab Interpretations Lab Results: 01/09/18 09:15 01/09/18 09:15 Lab Results 01/09/18 09:35: pO2 40, VBG pH 7.37, VBG pCO2 53.0, VBG HCO3 30.6 H, VBG Total CO2 32.2 H, VBG O2 Sat (Calc) 74.4 H, VBG Base Excess 4.0 H, VBG Potassium 4.1, Glucose 123 H, Lactate 1.6, FiO2 21.0, Sodium 138.0, Chloride 102.0, Venous Blood Potassium 4.1 01/09/18 09:15: Sodium 140, Potassium 4.1, Chloride 101, Carbon Dioxide 28, Anion Gap 15, BUN 24 H, Creatinine 0.9, Est GFR ( Amer) > 60, Est GFR ( Non-Af Amer) 59, Random Glucose 127 H, Calcium 9.7, Magnesium 2.2, Total Bilirubin 0.7, AST 56 H, ALT 30, Alkaline Phosphatase 84, Lactate Dehydrogenase 677, Total Creatine Kinase 752 H, CK-MB (CK-2) 4.2 H, CK-MB (CK-2) % Cancelled, Troponin I 0.12 D, NT-Pro-B Natriuret Pep 1820 H, Total Protein 7.8, Albumin 4.0, Globulin 3.8, Albumin/Globulin Ratio 1.1 01/09/18 09:15: PT 13.0 H, INR 1.13 H, APTT 32.5 01/09/18 09:15: Influenza Typ A,B (EIA) Negative for flu a/b 01/09/18 09:15: WBC 9.7 D, RBC 4.65, Hgb 13.1, Hct 39.1, MCV 84.1, MCH 28.2, MCHC 33.5, RDW 13.5, Plt Count 335, MPV 9.9, Gran % 79.9 H, Lymph % (Auto) 13.1 L, [place] % (Auto) 6.9 H, Eos % (Auto) 0.0 L, Baso % (Auto) 0.1, Gran # 7.75 H, Lymph # (Auto) 1.3, [place] # (Auto) 0.7 H, Eos # (Auto) 0.0, Baso # (Auto) 0.01 01/09/18 09:13: POC Glucose (mg/dL) 127 H I have reviewed the lab results: Yes - RAD Interpretation Radiology Orders: 01/09/18 09:15 HEAD W/O CONTRAST [CT] Stat CHEST ONE VIEW [RAD] Stat - Medication Orders Current Medication Orders: Acetaminophen (Tylenol 325mg Tab) 650 mg PO Q4H PRN PRN Reason: Pain, Mild (1-3) Last Admin: 01/09/18 18:32 Dose: 650 mg MAR Pain/Vitals Document 01/09/18 18:32 KMS (Rec: 01/09/18 18:32 KMS [id number]) Presence of Pain Presence of Pain Yes Pain Scale Used Pain Scale Used Numeric Location Intensity 3 Scale Used Numeric Vitals Temperature (97.6 F-99.6 F) 99.1 F Temperature Source Rectal Aspirin (Ecotrin) 81 mg PO DAILY EMELINA Famotidine (Pepcid) 40 mg PO HS EMELINA Furosemide (Lasix) 40 mg PO DAILY EMELINA Ceftriaxone Sodium (Rocephin 1 Gram Ivpb) 1 gm in 100 mls @ 100 mls/hr IV DAILY EMELINA PRN Reason: Protocol Dextrose/Sodium Chloride (Dextrose 5%/0.45% Ns 1000 Ml) 1,000 mls @ 60 mls/hr IV .[id number] EMELINA Last Admin: 01/09/18 18:32 Dose: 60 mls/hr eMAR Start Stop Document 01/09/18 18:32 KMS (Rec: 01/09/18 18:33 KMS [id number]) Intravenous Solution Start Date 01/09/18 Start Time 18:32 Lisinopril (Zestril) 5 mg PO DAILY EMELINA Memantine (Namenda) 10 mg PO DAILY EMELINA Discontinued Medications Aspirin (Aspirin Chewable) 81 mg PO STAT STA Stop: 01/09/18 10:32 Last Admin: 01/09/18 11:00 Dose: 81 mg Furosemide (Lasix) 20 mg IVP ONCE ONE Stop: 01/09/18 10:01 Last Admin: 01/09/18 10:28 Dose: 20 mg MAR Blood Pressure Document 01/09/18 10:28 SZRadha (Rec: 01/09/18 10:28 JAYSON [id number]) Blood Pressure Blood Pressure (100/60-150/90) 140/80 IVP Administration Document 01/09/18 10:28 JAYSON (Rec: 01/09/18 10:28 JAYSON [id number]) Charges for Administration # of IVP Administrations 1 Ceftriaxone Sodium (Rocephin 1 Gram Ivpb) 1 gm in 100 mls @ 200 mls/hr IVPB ONCE STA PRN Reason: Protocol Stop: 01/09/18 12:05 Last Admin: 01/09/18 12:20 Dose: 200 mls/hr eMAR Start Stop Document 01/09/18 12:20 SZA (Rec: 01/09/18 12:20 JAYSON [id number]) Intravenous Solution Start Date 01/09/18 Start Time 12:20 End Date 01/09/18 End time 12:50 Total Infusion Time 30 - Scribe Statement The provider has reviewed the documentation as recorded by the Chi Chapman Provider Scribe Attestation: All medical record entries made by the Chi were at my direction and personally dictated by me. I have reviewed the chart and agree that the record accurately reflects my personal performance of the history, physical exam, medical decision making, and the department course for this patient. I have also personally directed, reviewed, and agree with the discharge instructions and disposition. Disposition/Present on Arrival - Present on Arrival Any Indicators Present on Arrival: No History of DVT/PE: No History of Uncontrolled Diabetes: No Urinary Catheter: No History Surgical Site Infection Following: None - Disposition Have Diagnosis and Disposition been Completed?: Yes Diagnosis: Altered mental status, UTI (urinary tract infection), CHF (congestive heart failure), Elevated troponin Disposition: HOSPITALIZED Disposition Time: 10:45 Patient Plan: Admission, Telemetry Patient Problems: Current Active Problems Problem Status Onset Altered mental status Acute CHF (congestive heart failure) Acute UTI (urinary tract infection) Acute Condition: FAIR
[2018-01-09 09:38] LABS: BASO # 0.01 K/mm3 (0.0-2.0); BASO % 0.1 % (0.0-3.0); GRAN # 7.75 (1.4-6.5); GRAN % 79.9 % (50.0-68.0); HEMOGLOBIN 13.1 g/dL (12.0-16.0); LYMPH # 1.3 (1.2-3.4); LYMPH % 13.1 % (22.0-35.0); MEAN CELL VOLUME 84.1 fl (80.0-105.0); MEAN CORPUSCULAR HEMOGLOBIN 28.2 pg (25.0-35.0); MEAN CORPUSCULAR HGB CONC 33.5 g/dl (31.0-37.0); MEAN PLATELET VOLUME 9.9 fl (7.0-11.0); MONO # 0.7 (0.1-0.6); MONO % 6.9 % (1.0-6.0); RBC 4.65 10^6/uL (3.5-6.1); RED CELL DISTRIBUTION WIDTH 13.5 % (11.5-14.5); WHITE BLOOD COUNT 9.7 10^3/ul (4.5-11.0)
[2018-01-09 09:46] LABS: ALB/GLOB RATIO 1.1 (1.1-1.8); ALT/SGPT 30 U/L (7-56); AST/SGOT 56 U/L (14-36); BLOOD UREA NITROGEN 24 mg/dL (7-21); CALCIUM 9.7 mg/dL (8.4-10.5); GFR AFRICAN-AMERICAN > 60; GFR NON-AFRICAN AMERICAN 59
[2018-01-09 09:52] LABS: VENOUS BLOOD GAS PO2 40 mm/Hg (30-55); VENOUS BLOOD PH 7.37 (7.32-7.43)
[2018-01-09 09:56] LABS: B-TYPE NATRIURETIC PEPTIDE 1820 pg/mL (0-450); TROPONIN I 0.12 ng/mL
[2018-01-09 09:57] LABS: INR 1.13 (0.93-1.08); PARTIAL THROMBOPLASTIN TIME 32.5 Seconds (25.1-36.5)
[2018-01-09 10:02] LABS: CK-MB 4.2 ng/mL (0.0-3.6)
--- NOTE | 2018-01-09 10:03 | RAD ---
PROCEDURE: CHEST RADIOGRAPH, 1 VIEW HISTORY: ams COMPARISON: 04/11/2017 FINDINGS: LUNGS: Clear. PLEURA: No pneumothorax or pleural fluid seen. CARDIOVASCULAR: Moderate cardiomegaly OSSEOUS STRUCTURES: No significant abnormalities. VISUALIZED UPPER ABDOMEN: Normal. OTHER FINDINGS: None. IMPRESSION: No active disease.
--- NOTE | 2018-01-09 10:09 | CT ---
PROCEDURE: CT HEAD WITHOUT CONTRAST. HISTORY: ams COMPARISON: 04/11/2017 TECHNIQUE: Axial computed tomography images were obtained through the head/brain without intravenous contrast. Radiation dose: Total exam DLP = 715 mGy-cm. This CT exam was performed using one or more of the following dose reduction techniques: Automated exposure control, adjustment of the mA and/or kV according to patient size, and/or use of iterative reconstruction technique. FINDINGS: HEMORRHAGE: No intracranial hemorrhage. BRAIN: No mass effect or edema. Chronic microvascular changes are seen VENTRICLES: Unremarkable. No hydrocephalus. CALVARIUM: Unremarkable. PARANASAL SINUSES: Unremarkable as visualized. No significant inflammatory changes. MASTOID AIR CELLS: Unremarkable as visualized. No inflammatory changes. OTHER FINDINGS: None. IMPRESSION: No acute findings
[2018-01-09 11:21] LABS: URINE BILIRUBIN NEGATIVE (NEGATIVE); URINE BLOOD TRACE-INTACT (NEGATIVE); URINE GLUCOSE (UA) NEGATIVE (NEGATIVE); URINE LEUKOCYTE ESTERASE LARGE Leu/uL (NEGATIVE); URINE PROTEIN TRACE mg/dL (<30 mg/dL); URINE UROBILINOGEN 0.2 E.U./dL (<1 E.U./dL)
[2018-01-09 11:24] LABS: URINE APPEARANCE CLOUDY (CLEAR); URINE COLOR YELLOW (YELLOW)
[2018-01-09 11:29] LABS: URINE BACTERIA MANY (NEG)
[2018-01-09] MEDS ORDERED: cefTRIAXone 1 gm 1 GM/100 ML BAG IVPB STA (11:36)
[2018-01-09 12:35] VITALS: BMI 27.3
[2018-01-09] MEDS ORDERED: Influenza Vaccine 60 mcg/0.5 mL SYR (4YR UP) IM ONE (16:41)
[2018-01-09] MEDS ORDERED: Pneumococcal 23-Valent Vaccine IM ONE (16:41)
--- NOTE | 2018-01-09 18:28 | CARD ---
APPROVED REPORT EKG Measurement Heart [id number] VT 124P54 [id number] <Conclusion> Normal sinus rhythm Voltage criteria for left ventricular hypertrophy Abnormal ECG
[2018-01-09] MEDS: Dextrose 5%/0.45% NS 1,000 ML IV SCH (18:32)
[2018-01-10 07:04] LABS: BASO # 0.04 K/mm3 (0.0-2.0); BASO % 0.5 % (0.0-3.0); EOS # 0.2 (0.0-0.7); EOS % 3.2 % (1.5-5.0); GRAN # 4.57 (1.4-6.5); GRAN % 60.5 % (50.0-68.0); HEMOGLOBIN 10.6 g/dL (12.0-16.0); LYMPH # 1.9 (1.2-3.4); LYMPH % 25.4 % (22.0-35.0); MEAN CELL VOLUME 85.5 fl (80.0-105.0); MEAN CORPUSCULAR HEMOGLOBIN 27.5 pg (25.0-35.0); MEAN CORPUSCULAR HGB CONC 32.1 g/dl (31.0-37.0); MONO # 0.8 (0.1-0.6); MONO % 10.4 % (1.0-6.0); RBC 3.86 10^6/uL (3.5-6.1); RED CELL DISTRIBUTION WIDTH 13.7 % (11.5-14.5); WHITE BLOOD COUNT 7.6 10^3/ul (4.5-11.0)
[2018-01-10 07:23] LABS: FREE T4 1.28 ng/dL (0.78-2.19)
--- NOTE | 2018-01-10 07:28 | HP ---
CHIEF COMPLAINT: Weakness, altered mental status, foul-smelling urine. HISTORY OF PRESENT ILLNESS: This is an 87-year-old woman I have known for many years with several hospitalizations for altered mental status and recurrent urinary tract infections. She comes to the emergency room today by ambulance with the 2 daughters because of generalized weakness at home, inability to ambulate and foul-smelling urine with urinary incontinence. She was evaluated in the emergency room, clinically appeared dry with urinary tract infection, dark cloudy foul-smelling urine, and arrangements were made for her to be admitted. PAST MEDICAL HISTORY: Significant for mild memory loss, forgetfulness/dementia dating back to 2007. She has a history of TIA, Riley's esophagus, diverticulitis, COPD, esophageal reflux disease, and hypertension. She is status post thyroidectomy. She also has a history of osteoarthritis and spinal stenosis. She has a history of coronary artery disease, status post left oophorectomy, cholecystectomy and left breast cyst biopsy/aspiration. SOCIAL HISTORY: She does not smoke, never been, does not drink alcohol. ALLERGIES: SHE HAS NO KNOWN ALLERGIES TO MEDICATIONS. CURRENT MEDICATIONS: See the list in the emergency room for list of current medications. REVIEW OF SYSTEMS: Multipoint review of systems was attempted. The patient is not able to answer clearly because of her lethargic state, and daughters report symptoms relating to the diagnoses as listed above, arthritis pains, generalized weakness, memory loss, forgetfulness. PHYSICAL EXAMINATION: GENERAL: The patient was seen on the stretcher with 3 daughters present. She was seen in the emergency room and in the X-Ray Department, resting comfortably, in no acute distress, not suffering with any pain. She is awake, but lethargic, arousable, recognizes me, able to respond with simple answers, yes/no, but not in detail or explain stories or stream of thoughts. She admits to not being hungry or not eating in the last few days, as daughters have been reporting. HEENT: Head and neck shows some temporalis wasting. Mucous membranes are dry. NECK: Supple. There is no palpable mass. There is no carotid bruit. Thyroid is not palpable. There is scar present. There is no lymph node adenopathy or masses. LUNGS: Show fair air exchange both right and left. BREASTS: Not examined. HEART: Regular. Not tachycardic with 1-2/6 murmur appreciated. ABDOMEN: Soft, but nontender. SKIN: Skin was a bit dry with poor turgor. EXTREMITIES: Showed some +1 edema in the lower extremities, a bit more at the foot and ankle, but none above the knee. This may be from dependency. LABORATORY DATA: Review of her admitting lab work, white count is normal. H and H seems stable. She has 80% granulocytes. Lactate was normal. Chemistries: BUN was elevated at 24, creatinine is 0.9. Non-fasting glucose was 127. Total CPK elevated at 752, CK-MB elevated at 4.2, BNP elevated at 1820. LDH was normal. AST was elevated at 56. Urinalysis showed large amount of bacteria and leukocyte esterase. Cultures were sent. Troponins were elevated at 0.12. IMPRESSION: 1. Urinary tract infection. 2. Dehydration. 3. Poor p.o. intake for 2-3 days, which may be the contributing factor to 1 and 2 above. 4. Elevated troponins with elevated CPK and MB, suspicious for myocardial infarction. 5. Dementia. 6. Osteoarthritis. PLAN: The patient was given a dose of Rocephin in the emergency room, admitted to the floor. Although the BNP is slightly elevated, she appears clinically dry. We will give a low dose of gentle hydration overnight along with her usual dose of p.o. Lasix and watch closely. Cardiology consultation was requested with Dr. Gibbons because of the elevated troponin and CPK as well as CK-MB. A dose of Lasix was already given in the emergency room. Will reassess volume status after 12-20 hours of hydration. I spoke to the patient's daughters about heroic efforts and life support. They are not able to make a decision at this time, but are asking for me to do the best for their Mom. Pan Be MD [email or web address]
[2018-01-10 07:35] LABS: BLOOD UREA NITROGEN 25 mg/dL (7-21); CALCIUM 8.7 mg/dL (8.4-10.5); GFR AFRICAN-AMERICAN > 60; GFR NON-AFRICAN AMERICAN 59
[2018-01-10 07:50] LABS: TROPONIN I 0.17 ng/mL
[2018-01-10 08:04] LABS: CK MB% 0.5 % (2.5-3.0); CK-MB 6.1 ng/mL (0.0-3.6)
[2018-01-10] MEDS: cefTRIAXone 1 gm 1 GM/100 ML BAG IV SCH (09:40)
[2018-01-10] MEDS: Dextrose 5%/0.45% NS 1,000 ML IV SCH (12:53)
--- NOTE | 2018-01-10 16:29 | PN ---
SUBJECTIVE: The patient is an 87-year-old female with a past medical history of senile dementia x10 years. She also has a history of transient ischemic attack, Riley esophagitis, diverticulitis, emphysema, esophageal reflux, and hypertension. She is status post thyroidectomy, has a history of spinal stenosis and osteoarthritis. She is status post left oophorectomy, left cholecystectomy, and left breast cyst biopsy. She was found to be confused, altered mental status, by her family. She also had incontinence of a foul-smelling urine, was therefore brought to the emergency room and admitted yesterday. SHE HAS NO KNOWN ALLERGIES TO MEDICATIONS. So the patient was admitted with confusion, altered mental status, and urinary tract infection. She is being treated with Rocephin. We are also continuing on her lisinopril, Pepcid, Namenda, Lasix, and aspirin. OBJECTIVE: GENERAL: When seen today, the patient still remains confused. She answers clearly but rather inappropriately. VITAL SIGNS: She is afebrile at 98.3 degree Fahrenheit, blood pressure is 109/54, and heart rate is 76. LUNGS: Clear anteriorly. HEART: Regular. ABDOMEN: Soft and nontender. EXTREMITIES: Free of cyanosis, clubbing, or edema. DIAGNOSTICS: Laboratory studies show the white blood cell count to be 7.6, hemoglobin and hematocrit are 10.6 and 33.0 with a platelet count of 258. Sodium is 138, potassium is 3.3, blood urea nitrogen is 25, and creatinine is 0.9. The microbiology shows urine to grow Gram-negative rods. Chest x-ray showed no acute disease and CAT scan of the head was negative for acute changes. Her EKG showed regular sinus rhythm with left ventricular hypertrophy. Of note is that the patient was positive with troponins peaking this morning at 0.17. BNP is also elevated at 1820. ASSESSMENT AND PLAN: So Dr. Romo is called for consultation from Cardiology. We are continuing with the antibiotics for the urinary tract infection and the patient will be reevaluated in the morning. Darron Be MD
--- NOTE | 2018-01-11 02:20 | CON ---
DATE: 01/10/2018 LOCATION: The patient is in room 268, bed 1. REASON FOR CONSULTATION: Elevated troponin, weakness, altered mental status, foul-smelling urine, history of COPD, and hypertension. HISTORY OF PRESENT ILLNESS: An 87-year-old female, who in the past was told to have COPD, arthritis, Riley's esophagus, TIA, and had altered mental status at home. The patient as per family, got gradually very weak and was not eating. The patient also had urinary incontinence and foul-smelling urine. There is no history of chest pain, shortness of breath, or palpitations. The patient's first troponin is 0.12 and second troponin is 0.17. So consult has been requested for evaluation of elevated troponin. The patient is lying flat in bed without any respiratory distress at this moment. The patient is very confused and drowsy, does not answer to questions. When you try to examine, the patient pushes your hand away. The patient has a history of swelling of legs also in the past, most likely on the basis of chronic venous stasis. PAST MEDICAL HISTORY: Significant for memory loss, forgetfulness, dementia going back to 2007, history of TIA, Riley's esophagus, vertigo, COPD, gastroesophageal reflux disease, and hypertension. She also had thyroid surgery in the past, osteoarthritis, spinal stenosis, left oophorectomy, cholecystectomy, and left breast cyst biopsy/aspiration. PERSONAL HISTORY: Used to smoke in the past, but stopped many, many years ago. Used to drink socially. ALLERGIES: NO KNOWN ALLERGIES. HOME MEDICATIONS: She was on Memantine-HCL 10 mg p.o. b.i.d., Lasix 20 mg daily, Zantac 150 mg p.o. daily, and aspirin 81 mg daily. REVIEW OF SYSTEMS: All the systems reviewed. Positive mentioned in the history. History taken also from the daughter, who was sitting on the bedside. PHYSICAL EXAMINATION: VITAL SIGNS: Blood pressure is 129/86, respirations 19, pulse 76, and temperature 98.3. HEENT: Head is normocephalic. Eyes: Pupils are normal. Conjunctivae are slightly pale. NECK: JVP is low. Carotids equal. THORAX: AP diameter normal. LUNGS: Clear. CARDIOVASCULAR: S1, S2. Systolic murmur, graded 2-3/6. ABDOMEN: Soft, nontender. No organomegaly. EXTREMITIES: No clubbing. No cyanosis. The patient has edema in the legs, which according to the son, is also decreased since yesterday. LABORATORY DATA: WBC count 7.6, hemoglobin 10.6, hematocrit 33.0, and platelets 258. Sodium 138, potassium 3.3, BUN is 25, creatinine 0.9, calcium 8.7, CPK 1239, initial troponin on admission was 0.12, and today's troponin is 0.17. Chest x-ray showed moderate cardiomegaly. Lungs are clear. CAT scan of the head, no acute findings. EKG showed normal sinus rhythm, voltage criteria for left ventricular hypertrophy. DIAGNOSES: Altered mental status, dementia, urinary tract infection, osteoarthritis, history of spinal stenosis, history of chronic obstructive pulmonary disease, slight troponin elevation - there is a question of non-ST elevation myocardial infarction; however, dehydration and slight BUN elevation can also be a false reading. PLAN: The patient does not even allow proper examination - she pushes the hand away, so the patient is not a candidate for any invasive workup from a cardiac point of view. So, we will treat her medically. I spoke to her daughter also, and she agrees with that. The patient is on aspirin 81 mg p.o. daily. The patient is getting IV fluids at 60 mL an hour, furosemide 20 mg p.o. daily to help with leg edema, Namenda 10 mg p.o. b.i.d,, Pepcid 40 mg at bedtime, ceftriaxone 1 g IV daily, and lisinopril 5 mg p.o. daily. We will add Lopressor 25 mg b.i.d. to the therapy for coronary artery disease. It is very difficult to do an echocardiography because the patient is uncooperative. She pushes the hand away while examining the patient. So, we will follow with you. Rob Gibbons MD
[2018-01-11] MEDS: Dextrose 5%/0.45% NS 1,000 ML IV SCH (05:20)
[2018-01-11 06:48] LABS: BLOOD UREA NITROGEN 18 mg/dL (7-21); CALCIUM 8.6 mg/dL (8.4-10.5); GFR AFRICAN-AMERICAN > 60; GFR NON-AFRICAN AMERICAN > 60
[2018-01-11] MEDS ORDERED: RANITIDINE 150 MG PO SCH (10:00)
[2018-01-11] MEDS: cefTRIAXone 1 gm 1 GM/100 ML BAG IV SCH (10:06)
[2018-01-11] MEDS: Pantoprazole 40 mg EC Tab PO SCH (11:11)
--- NOTE | 2018-01-11 16:09 | PN ---
DATE: 01/11/2018 LOCATION: Patient is in room 268, bed 1. REASON FOR CONSULTATION AND FOLLOWUP: Elevated troponin, weakness, altered mental status, foul-smelling urine, history of COPD and hypertension. SUBJECTIVE: Patient is lying flat in bed, does not answer on calling. Patient is in no respiratory distress. There is no history of chest pain or palpitation. PHYSICAL EXAMINATION VITAL SIGNS: Blood pressure 129/86, respirations 18, pulse 66, temperature 98.7. HEENT: Head is normocephalic. Eyes: Pupils normal. Conjunctivae normal. Nose and throat normal. NECK: JVP low. Carotid equal. THORAX: AP diameter normal. LUNGS: Clear. CARDIOVASCULAR: S1 and S2. Systolic murmur. No rub. ABDOMEN: Soft. No organomegaly. Bowel sounds normal. EXTREMITIES: No clubbing. No cyanosis. LABORATORY DATA: WBC 7.6, hemoglobin 10.6, hematocrit 33, platelet 258,000. Sodium 135, potassium 3.8, BUN 18, creatinine 0.8. Initial troponin was 0.12, second troponin 0.17, third troponin 0.10. DIAGNOSES: Altered mental status; dementia; urinary tract infection; osteoarthritis; history of spinal stenosis; chronic obstructive pulmonary disease; slight troponin elevation, first troponin 0.12 is borderline positive, the second one 0.17 and also positive, third one is 0.10, which is indeterminate reading. PLAN: Cannot rule out non-ST elevation myocardial infarction in this patient with borderline troponin 1, troponin elevated, but patient did not initiate to do any invasive workup because of her dementia, other comorbidities, and other medical issues. Patient's daughter also agreed to treat her medically. So, we will continue aspirin 81 mg daily. Patient is getting IV fluids 60 mL an hour; furosemide 20 mg daily, which will help her edema on the legs, which is getting better; metoprolol 25 mg b.i.d.; Namenda 10 mg b.i.d.; Pepcid 40 mg daily; ceftriaxone 1 g IV daily; lisinopril 5 mg daily. We will discontinue Telemetry. Echo will be also difficult to do because the patient will move hand when examining, move hand away. We will follow with you. Case discussed with . Rob Gibbons MD [facility] # [id number]
--- NOTE | 2018-01-11 16:13 | PN ---
DATE: 01/11/2018 SUBJECTIVE: The patient is an 87-year-old female with a past history positive for dementia, transient ischemic attack, Riley esophagitis, diverticulitis, emphysema, esophageal reflux, hypertension, status post thyroidectomy, oophorectomy, cholecystectomy, breast cyst biopsy. She also has a history of spinal stenosis and osteoarthritis, who was admitted with mental status changes, found to have foul-smelling urine. So the urine grew out E. coli, it is resistant to Cipro and Bactrim, it is sensitive to Kefzol. The patient had been on Rocephin intravenously since her admission two days ago. On admission, it was seen that the patient also had positive troponin's. She was evaluated by Dr. Gibbons and this case was discussed with him and he feels that the patient is not a candidate for catheterization at this time. We will continue to treat her medically for her non-STEMI. Because of the patient's confusion, she is not a candidate for catheterization. We are continuing with intravenous Rocephin. OBJECTIVE: GENERAL: When seen today, she is resting comfortably. She is still quite confused. LUNGS: Clear anteriorly. HEART: Regular. LABORATORY STUDIES: Showed the hemoglobin had decreased from 13.1 yesterday to 10.6 today. There is no obvious bleeding noted. White blood cell count is 7.6. BUN and creatinine are 18 and 0.8 respectively. Her vital signs are stable. We will discontinuing her IV fluids in an attempt to decrease the delusional effects and the drop in the hemoglobin, and the patient will be reevaluated in the morning. We will continue to follow her closely. Darron Be MD
--- NOTE | 2018-01-12 04:34 | CP.PCM.PN ---
Subjective - Date & Time of Evaluation Date of Evaluation: 01/12/18 Time of Evaluation: 04:33 - Subjective Subjective: S:It was requested to me insert a heparin lock. Patient has no complaint at this time. Pertinent medical record was reviewed. O: Last Vital Signs 3 Temp 99.1 F 01/12/18 00:01 Pulse 62 01/12/18 00:01 Resp 18 01/12/18 00:01 BP 152/67 H 01/12/18 00:01 Pulse Ox 99 01/12/18 00:01 Awake, alert. Not in distress. LUNGS:Normal breathing pattern. A:Poor venous access. P: # 22 angiocath was inserted in right hand dorsum. Objective - Vital Signs/Intake and Output Vital Signs (last 24 hours): Temp Pulse Resp BP Pulse Ox 99.1 F 62 18 152/67 H 99 01/12/18 00:01 01/12/18 00:01 01/12/18 00:01 01/12/18 00:01 01/12/18 00:01 - Medications Medications: Current Medications Acetaminophen (Tylenol 325mg Tab) 650 mg PO Q4H PRN PRN Reason: Pain, Mild (1-3) Last Admin: 01/09/18 18:32 Dose: 650 mg Aspirin (Aspirin Chewable) 81 mg PO DAILY [facility] Last Admin: 01/11/18 10:07 Dose: 81 mg Clopidogrel Bisulfate (Plavix) 75 mg PO DAILY [facility] Last Admin: 01/11/18 11:11 Dose: 75 mg Famotidine (Pepcid) 40 mg PO HS [facility] Last Admin: 01/11/18 22:00 Dose: 40 mg Furosemide (Lasix) 20 mg PO DAILY [facility] Last Admin: 01/11/18 10:07 Dose: 20 mg Ceftriaxone Sodium (Rocephin 1 Gram Ivpb) 1 gm in 100 mls @ 100 mls/hr IV DAILY [facility] PRN Reason: Protocol Last Admin: 01/11/18 10:06 Dose: 100 mls/hr Lisinopril (Zestril) 5 mg PO DAILY [facility] Last Admin: 01/11/18 10:07 Dose: 5 mg Memantine (Namenda) 10 mg PO BID [facility] Last Admin: 01/11/18 17:29 Dose: 10 mg Metoprolol Tartrate (Lopressor) 25 mg PO Q12 [facility] Last Admin: 01/11/18 22:00 Dose: 25 mg Pantoprazole Sodium (Protonix Ec Tab) 40 mg PO DAILY [facility] Last Admin: 01/11/18 11:11 Dose: 40 mg - Labs Labs: 01/10/18 06:30 01/11/18 05:30 PT 13.0 SECONDS (9.4-12.5) H 01/09/18 09:15 INR 1.13 (0.93-1.08) H 01/09/18 09:15 APTT 32.5 Seconds (25.1-36.5) 01/09/18 09:15
[2018-01-12] MEDS: Pantoprazole 40 mg EC Tab PO SCH (11:09)
[2018-01-12] MEDS: cefTRIAXone 1 gm 1 GM/100 ML BAG IV SCH (11:09)
--- NOTE | 2018-01-12 14:52 | PN ---
DATE: 01/12/2018 LOCATION: Patient is in room 268, bed 1. REASON FOR CONSULTATION AND FOLLOWUP: Elevated troponin, weakness, altered mental status, foul-smelling urine, history of COPD and hypertension. SUBJECTIVE: Patient is more alert today and answering to calling and denies any chest pain, shortness of breath or palpitation. Patient is lying flat in bed without any cardiac symptoms. PHYSICAL EXAMINATION VITAL SIGNS: Blood pressure is 158/72, respirations 18, pulse 64, temperature 98.4. HEENT: Head is normocephalic. Eyes: Pupils normal. Conjunctivae normal. Nose and throat normal. NECK: JVP low. Carotids are equal. LUNGS: Clear. CARDIOVASCULAR: S1 and S2. ABDOMEN: Soft, nontender. No organomegaly. Bowel sounds normal. EXTREMITIES: No clubbing. No cyanosis. LABORATORY DATA: WBC 7.6, hemoglobin 10.6, hematocrit 33, platelet 258,000. Sodium 135, potassium 3.8, BUN 18, creatinine 0.8. Troponin first one 0.12, second one 0.17, third one 0.10. DIAGNOSES: Altered mental status, dementia, urinary tract infection, osteoarthritis, history of spinal stenosis, chronic obstructive pulmonary disease, slight troponin elevation, but the patient is asymptomatic from chest point of view. PLAN: Patient due to elevation in troponin, cannot rule out non-ST elevation myocardial infarction, but patient is chest pain free and patient also has dementia. Patient is not the candidate for any invasive procedure. Discussed with the family. They agreed with that and we will continue medical therapy and we will do an echocardiogram. Patient is on aspirin 81 mg daily, furosemide 20 mg daily, metoprolol 25 mg b.i.d., Plavix 75 mg daily, getting her ceftriaxone 1 g IV daily, lisinopril 5 mg daily. We will follow. Rob Gibbons MD
--- NOTE | 2018-01-13 00:55 | PN ---
DATE: DAILY PROGRESS NOTE I would like today's progress note to be read as follows, if you would be so kind. SUBJECTIVE: The patient is an 87-year-old female with a past medical history positive for dementia, transient ischemic attacks, Riley esophagitis, diverticulitis, emphysema, esophageal reflux, hypertension, status post thyroidectomy, oophorectomy and cholecystectomy as well as breast cyst biopsy. She has a history of spinal stenosis and osteoarthritis as well and she was admitted to the [facility] days ago with mental status changes and foul-smelling urine. She had been treated with Rocephin. Her urine grew E-coli, which was sensitive to Rocephin. It was resistant to Cipro and Bactrim. On admission, it was noted that the patient also made troponins. She was evaluated by Dr. Gibbons and found that she is not a candidate for catheterization because of her confused mental state. When seen today, the patient is lying in bed. She is a bit more awake. She is responsive. She answers questions, but the same time, she is still confused. She was talking about getting a sandwich for her daughter. On physical exam, the lungs are clear anteriorly. Heart is regular. Abdomen is soft and nontender. She is afebrile at 98.4 degrees Fahrenheit, blood pressure is 159/78 and heart rate is 69. She has a PureWick attached to suction urinary incontinence and it is working well. We will recheck the CBC in the a.m. We will have to recheck her urinalysis. We are continuing with Rocephin for now. Darron Be MD
[2018-01-13 05:23] LABS: URINE BILIRUBIN NEGATIVE (NEGATIVE); URINE BLOOD NEGATIVE (NEGATIVE); URINE GLUCOSE (UA) NEGATIVE (NEGATIVE); URINE LEUKOCYTE ESTERASE TRACE Leu/uL (NEGATIVE); URINE PROTEIN NEGATIVE mg/dL (<30 mg/dL); URINE UROBILINOGEN 0.2 E.U./dL (<1 E.U./dL)
[2018-01-13 05:31] LABS: URINE APPEARANCE CLEAR (CLEAR); URINE COLOR YELLOW (YELLOW)
[2018-01-13 05:50] LABS: URINE EPITHELIAL CELLS 0 - 2 /hpf (0-5); URINE RBC 0 - 2 /hpf (0-2)
[2018-01-13 05:51] LABS: URINE BACTERIA SMALL (NEG)
[2018-01-13 06:30] LABS: BASO # 0.06 K/mm3 (0.0-2.0); EOS # 0.3 (0.0-0.7); EOS % 4.2 % (1.5-5.0); GRAN # 3.24 (1.4-6.5); HEMOGLOBIN 11.6 g/dL (12.0-16.0); LYMPH # 2.1 (1.2-3.4); MEAN CORPUSCULAR HEMOGLOBIN 27.6 pg (25.0-35.0); MEAN CORPUSCULAR HGB CONC 32.9 g/dl (31.0-37.0); MEAN PLATELET VOLUME 9.6 fl (7.0-11.0); MONO # 0.6 (0.1-0.6); MONO % 9.8 % (1.0-6.0); RBC 4.2 10^6/uL (3.5-6.1); RED CELL DISTRIBUTION WIDTH 13.1 % (11.5-14.5); WHITE BLOOD COUNT 6.2 10^3/ul (4.5-11.0)
[2018-01-13] MEDS: Pantoprazole 40 mg EC Tab PO SCH (10:18)
[2018-01-13] MEDS: Cefpodoxime (Vantin) 200 mg Tab PO SCH ×2 (10:19→21:22)
--- NOTE | 2018-01-13 16:02 | PN ---
DATE: 01/13/2018 LOCATION: The patient is in room 364, bed 1. REASON FOR CONSULTATION AND FOLLOWUP: Elevated troponin, weakness, altered mental status, foul smelling urine, history of COPD and hypertension. SUBJECTIVE: The patient more alert, answers to question but the patient confused. Denies chest pain, shortness of breath, lying flat in bed without any cardiac symptoms. PHYSICAL EXAMINATION: VITAL SIGNS: Blood pressure 170/80, respirations 20, pulse 59, temperature 97.9. HEENT: Head is normocephalic. Eyes: Pupils normal, conjunctivae normal. NECK: JVP is low. Carotids are equal. THORAX: AP diameter normal. LUNGS: Clear. CARDIOVASCULAR: S1 and S2. ABDOMEN: Soft. Nontender. No organomegaly. EXTREMITIES: No clubbing. No cyanosis. LABORATORY DATA: WBC 6.2, hemoglobin 11.6, hematocrit 35.3, platelets 294. Sodium 135, potassium 3.8, BUN 18, creatinine 0.8, glucose 107, calcium 8.6, phosphorus 3.2, magnesium 1.9. Troponin first one was 0.12, second 0.17, third 0.10. DIAGNOSES: Altered mental status, dementia, urinary tract infection, osteoarthritis, history of spinal stenosis, chronic obstructive pulmonary disease, slight troponin elevation. The patient asymptomatic from chest pain. PLAN: Due to slight elevation of troponin, cannot rule out [id number] myocardial infarction, but the patient clinically is chest pain free. The patient has dementia, not a candidate for any invasive procedure. Discussed with the family, they agree with that and continue medical therapy. The patient will have echocardiogram today. The patient on furosemide 20 daily, aspirin 81 daily, metoprolol 25 every 12 hours, Namenda 10 b.i.d., Pepcid 40 p.o. at bedtime, Plavix 75 daily, Protonix 40 daily, lisinopril 5 mg daily. requested for today. We will follow. Rob Gibbons MD
--- NOTE | 2018-01-13 17:24 | CARD ---
APPROVED REPORT EXAM: Two-dimensional and M-mode echocardiogram with Doppler and color Doppler. 2D DIMENSIONS Left Atrium (2D)3.9 (1.6-4.0cm)IVSd1.5 (0.7-1.1cm) LVDd4.6 (3.9-5.9cm)PWd1.5 (0.7-1.1cm) LVDs3.0 (2.5-4.0cm)FS (%) 34.8 % LVEF (%)64.0 (>50%) M-Mode DIMENSIONS Aortic Root2.50 (2.2-3.7cm)Aortic Cusp Exc.1.50 (1.5-2.0cm) Aortic Valve AoV Peak Cykuvdtj068.0cm/Vasu Peak GR.9mmHg Mitral Valve MV E Hxrwiqmy80.2cm/sMV A Kdeszrhn12.9cm/sE/A ratio0.9 TDI E/Lateral E'0.0E/Medial E'0.0 Tricuspid Valve TR Peak Lulxbwse862xu/sRAP [id number] Peak Gr.15mmHg [id number] LEFT VENTRICLE The left ventricle is normal size. There is moderate concentric left ventricular hypertrophy. The left ventricular function is normal.EF-60-65% There is normal LV segmental wall motion. Transmitral Doppler flow pattern is Grade III-reversible restrictive diastolic dysfunction. No left ventricle thrombus noted on this study. There is no ventricular septal defect visualized. There is no left ventricular aneurysm. There is no mass noted in the left ventricle. RIGHT VENTRICLE The right ventricle is normal size. There is normal right ventricular wall thickness. The right ventricular systolic function is normal. ATRIA The left atrium is mildly dilated, in long [place] The right atrium size is normal. The interatrial septum is intact with no evidence for an atrial septal defect. AORTIC VALVE The aortic valve is thickened but opens well. There is mild to moderate aortic regurgitation. There is no aortic valvular stenosis. There is no aortic valvular vegetation. MITRAL VALVE The mitral valve is thickened but opens well. Mitral annular calcification is moderate. Mitral regurgitation is mild to moderate. There is no mitral valve stenosis. There is no evidence of mitral valve prolapse. TRICUSPID VALVE The tricuspid valve leaflets are thickened , but open well. There is mild tricuspid regurgitation.RVSP_25 mof Hg There is no tricuspid valve stenosis. There is no tricuspid valve prolapse or vegetation. PULMONIC VALVE The pulmonic valve is mildly thickened. There is mild to moderate pulmonic valvular regurgitation. There is no pulmonic valvular stenosis. GREAT VESSELS The aortic root is normal in size. The ascending aorta is normal in size. The pulmonary artery is normal. The IVC is normal in size and collapses >50% with inspiration. PERICARDIAL EFFUSION There is no pleural effusion. There is no pericardial effusion. <Conclusion> The left ventricle is normal size. There is moderate concentric left ventricular hypertrophy. The left ventricular function is normal.EF-60-65% There is mild to moderate aortic regurgitation. Mitral regurgitation is mild to moderate. There is mild tricuspid regurgitation.RVSP_25 mof Hg There is mild to moderate pulmonic valvular regurgitation. The IVC is normal in size and collapses >50% with inspiration. There is no pericardial effusion.
--- NOTE | 2018-01-13 22:26 | PN ---
DATE: DAILY PROGRESS NOTE I would like today's progress note to be read as follows, if you would be so kind. SUBJECTIVE: The patient is an 87-year-old female with a past medical history positive for dementia, transient ischemic attacks, Riley's esophagitis, diverticulitis, emphysema, esophageal reflux, hypertension, status post thyroidectomy, oophorectomy and cholecystectomy as well as breast cyst biopsy. She has a history of spinal stenosis and osteoarthritis as well. She was admitted to [facility] 4 days ago with mental status changes, found to have a urinary tract infection. The patient responded well to Rocephin, which was sensitive to the E. coli infection in the urine. On admission, she also had positive troponins and is evaluated and followed by Dr. Gibbons, the sap fico architect. Today, she underwent echocardiography, which showed an ejection fraction of 60% to 65% with a moderate aortic regurgitation and moderate mitral regurgitation. Yesterday, we repeated the urinalysis and the urine appeared clear, no signs of infection. When seen today, the patient is lying in bed. She is comfortable. She is awake and alert, but she is still confused. Her mind wanders and she looses contact of the conversation. PHYSICAL EXAMINATION: HEART: Regular. LUNGS: Clear anteriorly. ABDOMEN: Soft and nontender. EXTREMITIES: Free of cyanosis, clubbing or edema. However, the patient is in need of podiatric care. LABORATORY DATA: This morning, her laboratory study showed a white blood cell count of 6.2, hemoglobin was 11.6, hematocrit is 35.3, platelet count is 291. ASSESSMENT AND PLAN: Dr. Oneil is called to consult for podiatric care. We will be reaching out to the family concerning discharge planning. Darron Be MD
[2018-01-14 08:35] VITALS: RESP 20
[2018-01-14] MEDS: Pantoprazole 40 mg EC Tab PO SCH (09:58)
[2018-01-14] MEDS: Cefpodoxime (Vantin) 200 mg Tab PO SCH ×2 (09:58→21:32)
--- NOTE | 2018-01-14 15:29 | CP.PCM.PN ---
Subjective - Date & Time of Evaluation Date of Evaluation: 01/14/18 Time of Evaluation: 15:18 - Subjective Subjective: Podiatry Progress Note - Dr. Oneil 87F seen and evaluated at bedside for painful, thickened, elongated toenails x10. Patient hemodynamically stable and NAD. Patient states her nails cause discomfort when pressure is placed on her nails. Offers no other complaints. Denies N/V/F/D/C/SOB/PAREDES/dizziness/calf pain. Objective - Vital Signs/Intake and Output Vital Signs (last 24 hours): Temp Pulse Resp BP Pulse Ox 98 F 65 20 161/86 H 97 01/14/18 08:35 01/14/18 09:59 01/14/18 08:35 01/14/18 09:59 01/14/18 08:35 Intake and Output: 01/14/18 01/14/18 06:59 18:59 Intake Total 60 Output Total 400 350 Balance -400 -290 - Medications Medications: Current Medications Acetaminophen (Tylenol 325mg Tab) 650 mg PO Q4H PRN PRN Reason: Pain, Mild (1-3) Last Admin: 01/09/18 18:32 Dose: 650 mg Aspirin (Aspirin Chewable) 81 mg PO DAILY [facility] Last Admin: 01/14/18 09:59 Dose: 81 mg Cefpodoxime Proxetil (Vantin) 200 mg PO Q12 [facility] Last Admin: 01/14/18 09:58 Dose: 200 mg Clopidogrel Bisulfate (Plavix) 75 mg PO DAILY [facility] Last Admin: 01/14/18 09:58 Dose: 75 mg Famotidine (Pepcid) 40 mg PO HS [facility] Last Admin: 01/13/18 21:20 Dose: 40 mg Furosemide (Lasix) 20 mg PO DAILY [facility] Last Admin: 01/14/18 09:58 Dose: 20 mg Isosorbide Mononitrate (Imdur Er) 30 mg PO DAILY [facility] Lisinopril (Zestril) 20 mg PO DAILY [facility] Memantine (Namenda) 10 mg PO BID [facility] Last Admin: 01/14/18 09:58 Dose: 10 mg Metoprolol Tartrate (Lopressor) 25 mg PO Q12 [facility] Last Admin: 01/14/18 09:59 Dose: 25 mg Pantoprazole Sodium (Protonix Ec Tab) 40 mg PO DAILY [facility] Last Admin: 01/14/18 09:58 Dose: 40 mg - Labs Labs: 01/13/18 05:00 01/11/18 05:30 PT 13.0 SECONDS (9.4-12.5) H 01/09/18 09:15 INR 1.13 (0.93-1.08) H 01/09/18 09:15 APTT 32.5 Seconds (25.1-36.5) 01/09/18 09:15 - Constitutional Appears: Well, Non-toxic, No Acute Distress - Extremities Exam Extremities Exam: Normal Capillary Refill, Pedal Edema, Tenderness. absent: Calf Tenderness Additional comments: VASC: DP and PT pulses weakly palpable b/l. CFT WNL b/l. Temperature gradient cool to cool b/l. Perimalleolar edema noted b/l. NEURO: Gross sensation intact bilaterally. DERM: Nails 1-5 b/l are thickened, elongated, and dystrophic with the presence of subungual debris. No open lesions noted. Skin diffusely dry. ORTHO: Pain on palpation nails 1-5 b/l. Muscle strength 5/5 for all dorsiflexors , plantarflexors, inverters, and everters b/l. - Neurological Exam Neurological Exam: Alert, Awake, Oriented x3 - Psychiatric Exam Psychiatric exam: Agitated Assessment and Plan - Assessment and Plan (Free Text) Assessment: 87F with onychomycosis Plan: Patient seen and evaluated Discussed with attending, Dr. Oneil Nails 1-5 b/l debrided in thickness and length without incident Stable per podiatry standpoint Podiatry to sign off at this time Thank you for the consult, please reconsult podiatry if new issues arise
--- NOTE | 2018-01-14 20:36 | PN ---
DATE: 01/14/2018 SUBJECTIVE: The patient was seen this Saturday at lunchtime in room 364, bed 1. She is awake, recognizes me, more conversant and talkative than I first met her on admission. Urinary tract infection has been significantly resolved with IV fluids and antibiotics. She is now being evaluated for the transitional care unit where she would go for additional physical therapy and conditioning. At home, she was quite high level of function, ambulating about the house with a walker, and engaging in simple house chores. We will await physical therapy evaluation and ready for transfer to TCU when bed is available. Pan Be MD
--- NOTE | 2018-01-14 21:41 | CON ---
DATE: 01/14/2018 TIME OF CONSULTATION: 0700 hours. LOCATION OF CONSULTATION: Room 364, bed 1. REASON FOR CONSULTATION: Generalized edema and painful, deformed ingrown toenails on multiple toes of both feet. HISTORY OF PRESENT ILLNESS: The patient is a geriatric patient known to me off and on for many years with multiple year interval and frequency of general podiatric foot care who presents to the hospital with significant forgetfulness and dementia and current altered mental status. PAST MEDICAL HISTORY: Positive for COPD, Riley's esophagitis, history of TIA's, GERD, and hypertension. She has a surgical history of thyroidectomy, and she also reports osteoarthritis and history of spinal stenosis with gait weakness. She has a history of CAD and previous history of cholecystectomy. ALLERGIES: SHE HAS NO KNOWN ALLERGIES. SOCIAL HISTORY: She denies history of tobacco and alcohol although her questioning is difficult because of her altered mental status. REVIEW OF SYSTEMS: Multipoint review is attempted, not very effective because of her lethargic and current reduced mental clarity although she does recognize me and understand the reason for my presence. MEDICATIONS: Current medications are reviewed as per the intake information. PHYSICAL EXAMINATION: GENERAL: She appears well developed and nervous, in no acute distress although she is slow in her responses and appears fatigued. VITAL SIGNS: Stable and she appears to be resting comfortably. EXTREMITIES: She reports a vague sense of tenderness in both feet and lower leg with no specific point of discomfort. She has a weak DP and nonpalpable PT pulses, mostly because of significant +2 dependent edema from the lower leg to the toes. There is no evidence of decubital breakdown and there are no fissures or cuts on the Achilles area or the heel or sole of either foot. There is no evidence of distal cellulitis or any lymphangitis noted on either extremity. There is significant clawing and hammering of the lesser toes. She has been, sometimes since any pedal management for her onychomycosis and she appears to have 1 to 2-inch long, thick, twisted, brown significantly mycotic toenails on multiple toes and there is some indications of mild excoriations on the adjacent toes from the same. IMPRESSION AND PLAN: This is a debilitated geriatric female in a lower cognitive state and significant lethargy, under medical management with some diffuse edema of both the lower extremities and significant onychomycosis on both feet in the presence of some early peripheral arterial disease changes. No specific nail care is performed at the time of this visit. We will contact the resident and have mycotic nail care performed at the bedside later today. We will recommend topical skin moisturizers for the skin changes related to rhe edema of both lower extremities and anticipate the patient needing some form of rehab and physical therapy to get overcome the level of debilitation apparent at the bedside today. Carlitos Oneil DPM
[2018-01-15 07:00] LABS: BLOOD UREA NITROGEN 16 mg/dL (7-21); CALCIUM 9.1 mg/dL (8.4-10.5); GFR AFRICAN-AMERICAN > 60; GFR NON-AFRICAN AMERICAN 59
[2018-01-15 07:04] LABS: BASO # 0.04 K/mm3 (0.0-2.0); BASO % 0.6 % (0.0-3.0); EOS # 0.3 (0.0-0.7); EOS % 4.4 % (1.5-5.0); GRAN # 3.43 (1.4-6.5); GRAN % 52.3 % (50.0-68.0); HEMOGLOBIN 11.4 g/dL (12.0-16.0); LYMPH # 2.3 (1.2-3.4); LYMPH % 34.9 % (22.0-35.0); MEAN CELL VOLUME 83.7 fl (80.0-105.0); MEAN CORPUSCULAR HEMOGLOBIN 27.3 pg (25.0-35.0); MEAN CORPUSCULAR HGB CONC 32.7 g/dl (31.0-37.0); MEAN PLATELET VOLUME 9.7 fl (7.0-11.0); MONO # 0.5 (0.1-0.6); MONO % 7.8 % (1.0-6.0); RBC 4.17 10^6/uL (3.5-6.1); RED CELL DISTRIBUTION WIDTH 13.3 % (11.5-14.5); WHITE BLOOD COUNT 6.6 10^3/ul (4.5-11.0)
--- NOTE | 2018-01-15 08:42 | PN ---
DATE: 01/14/2018 REASON FOR CONSULTATION AND FOLLOWUP: Elevated troponin, weakness, altered mental status, possible UTI, COPD, hypertension. SUBJECTIVE: Patient is awake and alert, lying flat in the bed, not in apparent distress. OBJECTIVE GENERAL: Not in apparent distress, no angina symptom. VITAL SIGNS: Temperature is afebrile, heart rate is 65, and blood pressure 164/86. HEENT: PERRLA, intact. NECK: Supple. No carotid bruit or thyromegaly. CHEST: Clear to auscultation. HEART: S1 and S2 regular. ABDOMEN: Soft. EXTREMITIES: Clubbing and cyanosis negative. LABORATORY DATA: Blood workup as follows: WBC of 6.2, hemoglobin of 11, hematocrit of 35.3, and platelet count 294. Chemistry shows sodium 135, potassium , chloride 100, carbon dioxide 28, anion gap of 11, BUN 18, and creatinine 0.8. Troponin 0.1. Patient had echocardiography done yesterday that showed ejection fraction ____, [id number] aortic regurgitation, [id number] mitral regurgitation, mild tricuspid regurgitation, RV systolic pressure 25, normal LV size, [id number] pulmonary insufficiency noted. ASSESSMENT AND PLAN: Patient had underlying dementia, asymptomatic. Troponin on admission was borderline positive, but no anginal symptoms at this time. discussed with the family and agreed to treat medically. Continue aspirin. Continue metoprolol. Patient is on Namenda, Pepcid, Plavix daily for four weeks. and also, add long-acting nitrate since the patient is running blood pressure elevated, so we will increase lisinopril to 20 mg daily and also add nitrate. We will give 20 of lisinopril stat now and will give Imdur 30 mg daily. Thank you for providing me the opportunity in taking care of patient, Bisi Perez. Rob Romo MD
[2018-01-15] MEDS: Cefpodoxime (Vantin) 200 mg Tab PO SCH (09:25)
[2018-01-15] MEDS: Pantoprazole 40 mg EC Tab PO SCH (09:25)
--- NOTE | 2018-01-15 11:45 | PQF AMI ---
This form is a permanent part of the medical record Clarification of your documentation is requested to better reflect the severity of illness and intensity of treatment of your patient. Indicators present Pt admitted w/ borderline Troponins, 0.12, 0.17, 0.10. No c /o chest pain, but invasive studies not done due to pt dementia. Has NSTEMI been ruled out? [] Diagnosis of [place] without specification of time frame (within 28 days of admission of greater than 28 days prior to admission) [] Diagnosis of subsequent [place] (time frame of previous [place] within 28 days of admission or greater than 28 days of admission) [x] Diagnosis of [place] w/o specified site [] EKG positive for changes (i.e.; ST elevation, non-ST elevation, Q-wave changes, etc.) [x] Elevated Troponins [] Elevated Cardiac Enzymes [] Cardiac consult documentation of [] Chest pain/ACS/Unstable Angina [] Echo findings of [] Other: [] Location in the medical record that reflects the above clinical findings:[x] Card consult Other Treatment Provided:[] PHYSICIAN'S RESPONSE Based on your medical judgment of the clinical indicators outlined above, are you treating this patient for a known or suspected: [x ] NSTEMI [ ] STEMI Site: [ ] [ ] ACS/Unstable Angina [ ] Angina :[ ] [ ] Other, please indicate [ ]___ If Unable to Determine, please check the box, sign and date Present On Admission (POA) Indicator: [ ] Present at the time of admission [ ] Not present at the time of admission [ ] Clinically Undetermined * If you have any questions please call:[ ][phone] * Thank you, [ ]Micheline Love RN CDS calker In responding to this query, please exercise your independent professional judgment. The fact that a question is asked does not imply that any particular answer is desired or expected. Thank you for your clarification on this documentation. JOSÉ
--- NOTE | 2018-01-15 16:16 | PN ---
DATE: 01/15/2018 REASON FOR CONSULTATION AND FOLLOWUP: Elevated troponin, weakness, altered mental status, possible UTI, COPD, hypertension. SUBJECTIVE: Patient is much awake and alert, lying in the bed, not in apparent distress. OBJECTIVE: GENERAL: Lying flat in the bed, not in apparent distress, getting better and was cleaned . VITAL SIGNS: Temperature is afebrile, heart rate is 61, blood pressure 146/73. HEENT: PERRLA. Extraocular muscles intact. NECK: Supple. No carotid bruit or thyromegaly. CHEST: Clear to auscultation. HEART: S1 and S2 regular. ABDOMEN: Soft. EXTREMITIES: Clubbing and cyanosis, negative. LABORATORY DATA: Blood workup as follows: WBC of 6.6, hemoglobin of , hematocrit of 34.9, and platelet count 352. Chemistry shows sodium 130, potassium 4, chloride 100, carbon dioxide 32, anion gap of , BUN 16, and creatinine 0.9. IMPRESSION: Positive troponin; possible non-ST segment myocardial infarction, asymptomatic; borderline elevation of troponin; dementia, no anginal symptoms. Family agreed to treat medically. Continue aspirin. Continue metoprolol. Continue Namenda, Pepcid, Plavix for four weeks. I added yesterday. Continue lisinopril. It was started because the pressure was elevated yesterday and continue now on lisinopril 20 mg daily. Aggressive medical treatment. Rob Romo MD
[2018-01-15 17:03] VITALS: BP 98/52; PULSE 90; TEMP 98.6; O2SAT 99
--- NOTE | 2018-01-16 04:37 | DS ---
HISTORY COURSE: The patient is an 87-year-old female with past medical history positive for dementia, transient ischemic attacks, Riley esophagitis, diverticulitis, emphysema, esophageal reflux, hypertension, status post thyroidectomy, status post oophorectomy, status post cholecystectomy as well as status post breast cyst biopsy. She was admitted to [facility] with mental status changes, found to be due to an urinary tract infection. Urine cultures grew E. coli. She was treated with Rocephin during her hospital stay and responded well. Also, on admission, she was found to have elevated troponin level, she underwent echocardiography, which showed an ejection fraction of 60% to 65% with moderate aortic regurgitation and moderate mitral regurgitation. Followup urinalysis was negative. The patient was evaluated for Transitional Care Unit at the [facility]; however, was felt that she needed subacute care facility for a longer period of time. Therefore, the patient was accepted at a subacute care facility. Family was contacted, arrangements were made, and the patient was transferred there. FINAL DIAGNOSES: 1. Mental status changes. 2. Urinary tract infection. 3. Senile dementia. 4. History of Riley esophagitis. 5. History of emphysema. 6. Hypertension. Darron Be MD
== END 2018-01-15 17:45 | DRG 689 ==
LOC: ED 08:48 → ERH 10:57 → 2RNO 16:25 → 3RNO 01-12 10:23
PROVIDERS: ADMIT Internal Medicine; ATTEND Internal Medicine
DX: N39.0 Urinary tract infection, site not specified (principal); I21.4 Non-ST elevation (NSTEMI) myocardial infarction; I25.110 Atherosclerotic heart disease of native coronary artery with unstable angina pectoris; B96.20 Unspecified Escherichia coli [E. coli] as the cause of diseases classified elsewhere; B35.1 Tinea unguium; E86.0 Dehydration; E89.0 Postprocedural hypothyroidism; F03.90 Unspecified dementia, unspecified severity, without behavioral disturbance, psychotic disturbance, mood disturbance, and anxiety; Z86.73 Personal history of transient ischemic attack (TIA), and cerebral infarction without residual deficits; I08.0 Rheumatic disorders of both mitral and aortic valves; I11.0 Hypertensive heart disease with heart failure; I50.9 Heart failure, unspecified; I73.9 Peripheral vascular disease, unspecified; I87.8 Other specified disorders of veins; J43.9 Emphysema, unspecified; K21.9 Gastro-esophageal reflux disease without esophagitis; K22.70 Barrett's esophagus without dysplasia; L60.0 Ingrowing nail; M19.90 Unspecified osteoarthritis, unspecified site; R32 Unspecified urinary incontinence; Z16.23 Resistance to quinolones and fluoroquinolones; Z79.82 Long term (current) use of aspirin; Z79.899 Other long term (current) drug therapy; Z87.440 Personal history of urinary (tract) infections; Z87.891 Personal history of nicotine dependence; Z90.49 Acquired absence of other specified parts of digestive tract; Z90.721 Acquired absence of ovaries, unilateral

== ENCOUNTER 2018-04-20 10:43 | Emergency (ER) | payer MEDICARE, BC ==
[2018-04-20 10:57] VITALS: RESP 18; TEMP 98.2; O2SAT 98
[2018-04-20 11:09] VITALS: BMI 27.4
--- NOTE | 2018-04-20 11:29 | ED PDOC ---
Arrival/HPI - General Chief Complaint: Lower Extremity Problem/Injury Time Seen by Provider: 04/20/18 10:58 Historian: Patient - History of Present Illness Narrative History of Present Illness (Text): 87 y/o F c PMHx CHF, HTN, dementia, arthritis BIBEMS from home for R leg pain since this morning. Daughter at bedside states that when she attempted to get patient out of bed this morning, the patient could not due to pain on the R side from the R hip down to the R foot. Daughter denies fever, trauma, swelling , dyspnea. Full HPI/ROS unobtainable secondary to patient's dementia. Past Medical History - Infectious Disease Hx of Infectious Diseases: None - Tetanus Immunization Tetanus Immunization: Unknown - Cardiac Hx Hypertension: Yes - Pulmonary Hx Chronic Obstructive Pulmonary Disease (COPD): Yes - Neurological HX Cerebrovascular Accident: Yes - HEENT Hx HEENT Disorder: No - Renal Hx Renal Disorder: No - Endocrine/Metabolic Hx Endocrine Disorders: No - Hematological/Oncological Hx Blood Disorders: No - Integumentary Hx Dermatological Disorder: Yes Other/Comment: outer aspect left foot/heel ankle discolored swollen - Musculoskeletal/Rheumatological Hx Arthritis: Yes - Gastrointestinal Hx Gastroesophageal Reflux: Yes - Genitourinary/Gynecological Hx Genitourinary Disorders: No - Psychiatric Hx Depression: No Hx Emotional Abuse: No Hx Physical Abuse: No Hx Substance Use: No Other/Comment: dementia - Past Surgical History Past Surgical History: Non-Contributing - Surgical History Hx Cardiac Catheterization: Yes (pt does not recall catherization) Hx Cholecystectomy: Yes Other/Comment: left breast benign cyst, left ovary removed - Anesthesia Hx Anesthesia: No - Suicidal Assessment Feels Threatened In Home Enviroment: No Family/Social History Family/Social History: No Known Family HX Smoking Status: Never Smoked Hx Alcohol Use: No Hx Substance Use: No Hx Substance Use Treatment: No Allergies/Home Meds Allergies/Adverse Reactions: Allergies No Known Allergies Allergy (Verified 01/09/18 09:20) Home Medications: Home Meds Medication Instructions Recorded Confirmed Clopidogrel [Plavix] 1 tab PO DAILY 04/20/18 04/20/18 Furosemide [Lasix] 1 tab PO DAILY 04/20/18 04/20/18 Isosorbide Mononitrate [Isosorbide 1 tab PO DAILY 04/20/18 04/20/18 Mononitrate ER] Lisinopril [Prinivil] 1 tab PO DAILY 04/20/18 04/20/18 Memantine [Namenda] 1 tab PO BID 04/20/18 04/20/18 Metoprolol Tartrate [Lopressor] 1 tab PO DAILY 04/20/18 04/20/18 Pantoprazole [Protonix EC Tab] 1 tab PO DAILY 04/20/18 04/20/18 Ranitidine HCl [Zantac] 1 tab PO DAILY 04/20/18 04/20/18 Review of Systems - Review of Systems Systems not reviewed;Unavailable: Dementia Physical Exam - Physical Exam Narrative Physical Exam (Text): Constitutional: No acute distress. Head: Normocephalic. Atraumatic. Eyes: PERRL. ENT: Moist mucous membranes. Neck: Supple. Cardiovascular: Regular rate. Chest: No tenderness. Respiratory: Clear to auscultation bilaterally. GI: Soft. Nontender. Nondistended. No rebound or guarding. Back: No CVA tenderness. Musculoskeletal: Tenderness over R hip, R posterior thigh, R calf, and R foot. No obvious asymmetrical edema. Skin: No rash. Neurologic: Alert, no focal deficit. Vital Signs Temp Pulse Resp BP Pulse Ox 04/20/18 13:40 79 18 125/70 98 04/20/18 10:56 98.2 F 85 18 128/76 98 Medical Decision Making ED Course and Treatment: 04/20/18 12:16 Right Lower Extremity Ultrasound found to be negative for DVT. 04/20/2018 13:43 Hip/Pelvis X-Ray IMPRESSION: No acute findings related to/accounting for the clinical presentation. Dictator: Niraj Faria MD 04/20/2018 13:43 Right Femur X-Ray IMPRESSION: No acute findings related to/accounting for the clinical presentation. Severe multi compartmental degenerative changes to right knee. Dictator: Niraj Faria MD 04/20/2018 13:44 Right Tibia Fibula X-Ray IMPRESSION: Soft tissue swelling without acute articular or osseous abnormality. Dictator: Niraj Faria MD 04/20/2018 13:45 Right Foot X-Ray IMPRESSION: Diffuse edema without acute osseous or articular abnormality. Dictator: Niraj Faria MD All imaging negative. Patient states she has no pain or complaints now. Leg on examination is now nontender. UA positive for UTI. Daughter at bedside states patient is at her normal, demented baseline. Will discharge with antibiotics, ibuprofen, pepcid, f/u PMD, instructed both daughters to bring patient back for worsening pain, fever, dyspnea, nausea, vomiting, or change in mental status. - Lab Interpretations Lab Results: 04/20/18 11:40 04/20/18 11:45 Lab Results 04/20/18 14:48: Urine Color Yellow, Urine Appearance Cloudy, Urine pH 8.0, Ur Specific [place] 1.015, Urine Protein Negative, Urine Glucose (UA) Negative, Urine Ketones Negative, Urine Blood Trace-lysed H, Urine Nitrate Positive H, Urine Bilirubin Negative, Urine Urobilinogen 1.0 H, Ur Leukocyte Esterase Large H, Urine RBC Negative, Urine WBC 15 - 20, Ur Epithelial Cells 4 - 5, Urine Bacteria Mod 04/20/18 11:45: Sodium 145, Potassium 4.0, Chloride 107, Carbon Dioxide 27, Anion Gap 15, BUN 10, Creatinine 0.8, Est GFR ( Amer) > 60, Est GFR (Non- Af Amer) > 60, Random Glucose 90, Calcium 8.6, Total Bilirubin 0.6, AST 20, ALT 11, Alkaline Phosphatase 75, Total Creatine Kinase 117, Total Protein 6.3, Albumin 3.5, Globulin 2.9, Albumin/Globulin Ratio 1.2 04/20/18 11:40: WBC 6.4, RBC 3.98, Hgb 11.3 L, Hct 33.7 L, MCV 84.7, MCH 28.4, MCHC 33.5, RDW 14.3, Plt Count 230, MPV 9.9, Gran % 52.0, Lymph % (Auto) 36.5 H , [place] % (Auto) 7.4 H, Eos % (Auto) 3.8, Baso % (Auto) 0.3, Gran # 3.32, Lymph # (Auto) 2.3, [place] # (Auto) 0.5, Eos # (Auto) 0.2, Baso # (Auto) 0.02 - RAD Interpretation Radiology Orders: 04/20/18 11:05 FEMUR MIN 2 VIEWS RT [RAD] Stat FOOT RIGHT 3 VIEWS ROUTINE [RAD] Stat HIP MIN 2V W/ PELVIS RT [RAD] Stat TIBIA FIBULA RIGHT [RAD] Stat DUPLEX LOWER EXTRM VEIN RIGHT [US] Stat - Medication Orders Current Medication Orders: Ciprofloxacin (Cipro) 500 mg PO ONCE STA PRN Reason: Protocol Stop: 04/20/18 15:13 Discontinued Medications Ketorolac Tromethamine (Toradol) 15 mg IVP STAT STA Stop: 04/20/18 11:38 Last Admin: 04/20/18 13:18 Dose: 15 mg MAR Pain Assessment Document 04/20/18 13:18 LIV (Rec: 04/20/18 13:18 LIV [id number]) Pain Reassessment Is this a pain reassessment? Yes Presence of Pain Presence of Pain Yes Pain Scale Used Pain Scale Used unable to Location Left, Right or Bilateral Right Pain Location Body Site Leg IVP Administration Document 04/20/18 13:18 LIV (Rec: 04/20/18 13:18 LIV [id number]) Charges for Administration # of IVP Administrations 1 Disposition/Present on Arrival - Present on Arrival Any Indicators Present on Arrival: No History of DVT/PE: No History of Uncontrolled Diabetes: No Urinary Catheter: No History of Decub. Ulcer: No History Surgical Site Infection Following: None - Disposition Have Diagnosis and Disposition been Completed?: Yes Diagnosis: UTI (urinary tract infection) Disposition: HOME/ ROUTINE Disposition Time: 15:14 Patient Plan: Discharge Condition: STABLE Discharge Instructions (ExitCare): Urinary Tract Infection, Adult (DC) Prescriptions: Ciprofloxacin [Cipro] 500 mg PO BID #14 tab Famotidine [Pepcid] 1 tab PO BID #14 tab Ibuprofen [Motrin] 1 tab PO Q6 #30 tab Referrals: Darron Be MD [Family Provider] - Follow up with primary Forms: [employer] (Brazilian)
[2018-04-20 11:50] LABS: BASO # 0.02 K/mm3 (0.0-2.0); BASO % 0.3 % (0.0-3.0); EOS # 0.2 (0.0-0.7); EOS % 3.8 % (1.5-5.0); GRAN # 3.32 (1.4-6.5); HEMOGLOBIN 11.3 g/dL (12.0-16.0); LYMPH # 2.3 (1.2-3.4); LYMPH % 36.5 % (22.0-35.0); MEAN CELL VOLUME 84.7 fl (80.0-105.0); MEAN CORPUSCULAR HEMOGLOBIN 28.4 pg (25.0-35.0); MEAN CORPUSCULAR HGB CONC 33.5 g/dl (31.0-37.0); MEAN PLATELET VOLUME 9.9 fl (7.0-11.0); MONO # 0.5 (0.1-0.6); MONO % 7.4 % (1.0-6.0); RBC 3.98 10^6/uL (3.5-6.1); RED CELL DISTRIBUTION WIDTH 14.3 % (11.5-14.5); WHITE BLOOD COUNT 6.4 10^3/ul (4.5-11.0)
[2018-04-20 12:01] LABS: ALB/GLOB RATIO 1.2 (1.1-1.8); ALBUMIN 3.5 g/dL (3.0-4.8); ALT/SGPT 11 U/L (7-56); AST/SGOT 20 U/L (14-36); BLOOD UREA NITROGEN 10 mg/dL (7-21); CALCIUM 8.6 mg/dL (8.4-10.5); GFR AFRICAN-AMERICAN > 60; GFR NON-AFRICAN AMERICAN > 60
--- NOTE | 2018-04-20 13:44 | RAD ---
PROCEDURE: HISTORY: Right hip Pain. No history of recent/ related trauma provided COMPARISON: None TECHNIQUE: Standard protocol for this study/examination. FINDINGS: There are no osseous abnormalities to suggest fracture. The pelvic ring is intact. Preserved femoral-acetabular relationship. Negative study for protrusio, subluxation or dislocation. Degenerative changes: Moderate and symmetrical. IMPRESSION: No acute findings related to/accounting for the clinical presentation.
--- NOTE | 2018-04-20 13:45 | RAD ---
PROCEDURE: Right femur HISTORY: posterior thigh pain COMPARISON: April 20, 2018. TECHNIQUE: Standard protocol for this study/examination. FINDINGS: No acute osseous abnormalities. Incompletely visualized degenerative changes affecting the right knee. IMPRESSION: No acute findings related to/accounting for the clinical presentation. Severe multi compartmental degenerative changes right knee.
--- NOTE | 2018-04-20 13:46 | RAD ---
PROCEDURE: Radiographs of the right tibia and fibula. HISTORY: lower leg pain COMPARISON: None available. TECHNIQUE: Frontal and lateral views obtained. FINDINGS: BONES: No acute fracture. Proliferative hypertrophic changes emanating from the femoral condyle and tibial plateau regions. JOINT SPACES: Severe degenerative changes affecting medial lateral. OTHER FINDINGS: Diffuse soft tissue swelling IMPRESSION: Soft tissue swelling without acute articular or osseous abnormality.
--- NOTE | 2018-04-20 13:47 | RAD ---
PROCEDURE: Right Foot Radiographs. HISTORY: R foot tenderness without history of trauma COMPARISON: None. FINDINGS: BONES: Normal. No fracture. JOINTS: Normal. SOFT TISSUES: Lower extremity edema. This affects both right ankle and right foot OTHER FINDINGS: None. IMPRESSION: Diffuse edema without acute osseous or articular abnormality.
[2018-04-20 14:58] LABS: URINE APPEARANCE CLOUDY (CLEAR); URINE BILIRUBIN NEGATIVE (NEGATIVE); URINE BLOOD TRACE-LYSED (NEGATIVE); URINE COLOR YELLOW (YELLOW); URINE GLUCOSE (UA) NEGATIVE (NEGATIVE); URINE LEUKOCYTE ESTERASE LARGE Leu/uL (NEGATIVE); URINE PROTEIN NEGATIVE mg/dL (<30 mg/dL)
[2018-04-20 15:06] LABS: URINE BACTERIA MOD (NEG); URINE RBC NEGATIVE /hpf (0-2); URINE WBC 15 - 20 /hpf (0-6)
[2018-04-20 15:16] VITALS: BP 123/68; PULSE 75
--- NOTE | 2018-04-21 09:30 | US ---
PROCEDURE: Right lower extremity venous US HISTORY: Leg pain and swelling. Evaluate for DVT. PHYSICIAN(S): Carlitos Jerez M.D. TECHNIQUE: Duplex sonography and color-flow Doppler with graded compression were used to evaluate the deep venous system of the right lower extremity. FINDINGS: The visualized deep venous system of the right lower extremity is sonographically normal and compressible. Normal waveforms and augmentation are seen. There is no sonographic evidence for deep venous thrombosis in the visualized segments of the right lower extremity. IMPRESSION: 1. No sonographic evidence for deep venous thrombosis in the visualized segments of the right lower extremity.
== END 2018-04-20 16:05 | disposition home or self-care (01) ==
LOC: ED 10:43
DX: N39.0 Urinary tract infection, site not specified (principal); I50.9 Heart failure, unspecified; I10 Essential (primary) hypertension; F03.90 Unspecified dementia, unspecified severity, without behavioral disturbance, psychotic disturbance, mood disturbance, and anxiety
CPT/HCPCS: 73502; 73552; 73590; 73630; 80053; 81001; 82550; 85025; 87086; 93971; 96374; 99284; J1885

== ENCOUNTER 2018-05-10 21:46 | Inpatient (IN) | payer MEDICARE, BC ==
--- NOTE | 2018-05-10 22:01 | ED PDOC ---
Arrival/HPI - General Time Seen by Provider: 05/10/18 21:49 Historian: Family - History of Present Illness Narrative History of Present Illness (Text): 05/10/18 22:01 Bisi Perez is an 87 year old female, whose past medical history includes dementia, TIA, Barett's esophagus, diverticulitis, COPD, GERD, thyroidectomy, hypertension, and CAD, who presents to the emergency department brought in by EMS accompanied by family for generalized malaise. As per family, patient has been experiencing generalized malaise/lethargy throughout the day with associated shaking and subjective fever at home. Patient was recently diagnosed with a UTI on 04/23/2018 and prescribed Suprax. Limited HPI and ROS secondary to patient's dementia. Symptom Onset: Gradual Symptom Course: Unchanged Activities at Onset: Light Context: Home Past Medical History - Provider Review Nursing Documentation Reviewed: Yes - Infectious Disease Hx of Infectious Diseases: None - Tetanus Immunization Tetanus Immunization: Unknown - Cardiac Hx Hypertension: Yes - Pulmonary Hx Chronic Obstructive Pulmonary Disease (COPD): Yes - Neurological HX Cerebrovascular Accident: Yes - HEENT Hx HEENT Disorder: No - Renal Hx Renal Disorder: No - Endocrine/Metabolic Hx Endocrine Disorders: No - Hematological/Oncological Hx Blood Disorders: No - Integumentary Hx Dermatological Disorder: Yes Other/Comment: outer aspect left foot/heel ankle discolored swollen - Musculoskeletal/Rheumatological Hx Arthritis: Yes - Gastrointestinal Hx Gastroesophageal Reflux: Yes - Genitourinary/Gynecological Hx Genitourinary Disorders: No - Psychiatric Hx Depression: No Hx Emotional Abuse: No Hx Physical Abuse: No Hx Substance Use: No Other/Comment: dementia - Past Surgical History Past Surgical History: Non-Contributing - Surgical History Hx Cardiac Catheterization: Yes (pt does not recall catherization) Hx Cholecystectomy: Yes Other/Comment: left breast benign cyst, left ovary removed - Anesthesia Hx Anesthesia: No - Suicidal Assessment Feels Threatened In Home Enviroment: No Family/Social History - Physician Review Nursing Documentation Reviewed: Yes Family/Social History: Unknown Family HX Smoking Status: Never Smoked Hx Alcohol Use: No Hx Substance Use: No Hx Substance Use Treatment: No Allergies/Home Meds Allergies/Adverse Reactions: Allergies No Known Allergies Allergy (Verified 01/09/18 09:20) Home Medications: Home Meds Medication Instructions Recorded Confirmed Clopidogrel [Plavix] 1 tab PO DAILY 04/20/18 04/20/18 Furosemide [Lasix] 1 tab PO DAILY 04/20/18 04/20/18 Isosorbide Mononitrate [Isosorbide 1 tab PO DAILY 04/20/18 04/20/18 Mononitrate ER] Lisinopril [Prinivil] 1 tab PO DAILY 04/20/18 04/20/18 Memantine [Namenda] 1 tab PO BID 04/20/18 04/20/18 Metoprolol Tartrate [Lopressor] 1 tab PO DAILY 04/20/18 04/20/18 Pantoprazole [Protonix EC Tab] 1 tab PO DAILY 04/20/18 04/20/18 Ranitidine HCl [Zantac] 1 tab PO DAILY 04/20/18 04/20/18 Review of Systems - Review of Systems Systems not reviewed;Unavailable: Dementia Constitutional: Fevers (+subjective fever), Other (+generalized malaise) Respiratory: absent: SOB Physical Exam Vital Signs Reviewed: Yes Vital Signs Temp 05/10/18 21:46 100.2 F H Temperature: Febrile Blood Pressure: Normal Pulse: Regular Respiratory Rate: Normal Appearance: Positive for: Non-Toxic, Comfortable Pain Distress: None Mental Status: Positive for: other (Awake, alert) - Systems Exam Head: Present: Atraumatic, Normocephalic Pupils: Present: Other (Pupils are small, but reactive to light bilaterally) Extroacular Muscles: Present: EOMI Conjunctiva: Present: Normal Ears: Present: Normal, NORMAL TM, Normal Canal. No: Erythema, TM Bulging, Fluid , TM Perf Mouth: Present: Moist Mucous Membranes Pharnyx: Present: Normal. No: ERYTHEMA, EXUDATE, TONSILS ENLARGED, Peritonsilar Swelling, Uvular Deviation, Muffled/Hoarse Voice, Strider, Soft Palate/Uvular Edema Nose (External): Present: Atraumatic Nose (Internal): Present: Normal Inspection Neck: Present: Normal Range of Motion. No: Meningeal Signs, MIDLINE TENDERNESS , Paraspinal Tenderness Respiratory/Chest: Present: Clear to Auscultation, Good Air Exchange. No: Respiratory Distress, Accessory Muscle Use Cardiovascular: Present: Regular Rate and Rhythm, Normal S1, S2. No: Murmurs Abdomen: No: Tenderness, Distention, Peritoneal Signs Back: Present: Normal Inspection Upper Extremity: Present: Normal Inspection. No: Cyanosis, Edema Lower Extremity: Present: Edema (Chronic lower leg edema) Neurological: Present: CN II-XII Intact, Motor Func Grossly Intact, Normal Sensory Function, Normal Cerebellar Funct, Other (No motor, sensory, or focal deficits) Skin: Present: Warm, Dry, Normal Color. No: Rashes Psychiatric: Present: Alert Medical Decision Making ED Course and Treatment: 05/10/18 22:01 Impression: 87 year old female brought in for generalized malaise and subjective fever. Plan: -- EKG -- CXR -- Labs, VBG, cardiac enzymes, blood cultures -- UA, urine cultures -- IV fluids -- Reassess and disposition Prior Visits: Notes and results from previous visits were reviewed. On 04/23/2018, pt was seen for right lower extremity pain. Pt diagnosed with UTI and prescribed Suprax. Progress Notes: Reviewed EKG, NSR at 95 bpm[address] Non-specific ST/T wave changes. 05/11/18 04:[address] Geraldo Be, who is aware and agrees with plan. Accepts pt in to his service. Pt will go to [facility] observation for fever and UTI. - Lab Interpretations Lab Results: 05/10/18 22:00 05/10/18 22:00 Lab Results 05/11/18 02:20: Urine Color Yellow, Urine Appearance Turbid, Urine pH 7.0, Ur Specific Sumner 1.020, Urine Protein 30 H, Urine Glucose (UA) Negative, Urine Ketones Negative, Urine Blood Small H, Urine Nitrate Negative, Urine Bilirubin Negative, Urine Urobilinogen 1.0 H, Ur Leukocyte Esterase Large H, Urine RBC 2 - 5, Urine WBC 25 - 30, Ur Epithelial Cells 0 - 2, Urine Bacteria Many 05/10/18 22:00: Sodium 138, Chloride 101, Potassium 4.5, Carbon Dioxide 24, Anion Gap 17, BUN 13, Creatinine 0.8, Est GFR ( Amer) > 60, Est GFR (Non- Af Amer) > 60, Random Glucose 105, Calcium 9.3, Total Bilirubin 0.9, AST 24, ALT 18, Alkaline Phosphatase 85, Lactate Dehydrogenase 778 H, Total Creatine Kinase 98, Troponin I 0.08, Total Protein 7.3, Albumin 4.0, Globulin 3.3, Albumin/Globulin Ratio 1.2 05/10/18 22:00: pO2 58 H, VBG pH 7.38, VBG pCO2 47.0, VBG HCO3 27.8, VBG Total CO2 29.2 H, VBG O2 Sat (Calc) 92.6 H, VBG Base Excess 2.0, VBG Potassium 4.2, Sodium 138.0, Chloride 105.0, Glucose 102, Lactate 1.5, FiO2 21.0, Venous Blood Potassium 4.2 05/10/18 22:00: PT 12.3, INR 1.08, APTT 25.2 05/10/18 22:00: WBC 9.0 D, RBC 4.02, Hgb 11.4 L, Hct 34.4 L, MCV 85.6, MCH 28.4 , MCHC 33.1, RDW 13.9, Plt Count 343, MPV 9.9, Gran % 68.7 H, Lymph % (Auto) 21.3 L, Giles % (Auto) 9.4 H, Eos % (Auto) 0.3 L, Baso % (Auto) 0.3, Gran # 6.19 , Lymph # (Auto) 1.9, Giles # (Auto) 0.9 H, Eos # (Auto) 0.0, Baso # (Auto) 0.03 I have reviewed the lab results: Yes - RAD Interpretation Radiology Orders: 05/10/18 22:06 CHEST PORTABLE [RAD] Stat Adult Crossing Guard: ED Physician - EKG Interpretation Interpreted by ED Physician: Yes Type: 12 lead EKG - Medication Orders Current Medication Orders: Sodium Chloride (Sodium Chloride 0.9%) 1,000 mls @ 100 mls/hr IV .Q10H [facility] Last Admin: 05/10/18 22:30 Dose: 100 mls/hr eMAR Start Stop Document 05/10/18 22:30 JOL (Rec: 05/11/18 02:14 [id number] Intravenous Solution Start Date 05/10/18 Start Time 22:30 Discontinued Medications Ceftriaxone Sodium (Rocephin 1 Gram Ivpb) 1 gm in 100 mls @ 200 mls/hr IV ONCE STA PRN Reason: Protocol Stop: 05/11/18 01:04 Last Admin: 05/11/18 02:24 Dose: 200 mls/hr eMAR Start Stop Document 05/11/18 02:24 JOL (Rec: 05/11/18 02:24 [id number] Intravenous Solution Start Date 05/11/18 Start Time 02:24 End Date 05/11/18 End time 02:54 Total Infusion Time 30 - Scribe Statement The provider has reviewed the documentation as recorded by the Chi Carlson Provider Scribe Attestation: All medical record entries made by the Scribe were at my direction and personally dictated by me. I have reviewed the chart and agree that the record accurately reflects my personal performance of the history, physical exam, medical decision making, and the department course for this patient. I have also personally directed, reviewed, and agree with the discharge instructions and disposition. Disposition/Present on Arrival - Present on Arrival Any Indicators Present on Arrival: No History of DVT/PE: No History of Uncontrolled Diabetes: No Urinary Catheter: No History of Decub. Ulcer: No History Surgical Site Infection Following: None - Disposition Have Diagnosis and Disposition been Completed?: Yes Diagnosis: UTI (urinary tract infection), Fever Disposition: HOSPITALIZED Disposition Time: 04:12 Patient Plan: Observation Condition: STABLE
[2018-05-10 22:03] VITALS: BMI 25.9
[2018-05-10 22:29] LABS: VENOUS BLOOD GAS PO2 58 mm/Hg (30-55); VENOUS BLOOD PH 7.38 (7.32-7.43)
[2018-05-10] MEDS: Sodium Chloride 0.9% 1,000 ML IV SCH (22:30)
[2018-05-10 22:43] LABS: BASO # 0.03 K/mm3 (0.0-2.0); BASO % 0.3 % (0.0-3.0); EOS % 0.3 % (1.5-5.0); GRAN # 6.19 (1.4-6.5); GRAN % 68.7 % (50.0-68.0); HEMOGLOBIN 11.4 g/dL (12.0-16.0); LYMPH # 1.9 (1.2-3.4); LYMPH % 21.3 % (22.0-35.0); MEAN CELL VOLUME 85.6 fl (80.0-105.0); MEAN CORPUSCULAR HEMOGLOBIN 28.4 pg (25.0-35.0); MEAN CORPUSCULAR HGB CONC 33.1 g/dl (31.0-37.0); MEAN PLATELET VOLUME 9.9 fl (7.0-11.0); MONO # 0.9 (0.1-0.6); MONO % 9.4 % (1.0-6.0); RBC 4.02 10^6/uL (3.5-6.1); RED CELL DISTRIBUTION WIDTH 13.9 % (11.5-14.5)
[2018-05-10 22:47] LABS: TROPONIN I 0.08 ng/mL
[2018-05-10 22:48] LABS: ALB/GLOB RATIO 1.2 (1.1-1.8); ALT/SGPT 18 U/L (7-56); AST/SGOT 24 U/L (14-36); BLOOD UREA NITROGEN 13 mg/dL (7-21); CALCIUM 9.3 mg/dL (8.4-10.5); GFR AFRICAN-AMERICAN > 60; GFR NON-AFRICAN AMERICAN > 60
[2018-05-10 23:06] LABS: INR 1.08 (0.93-1.08); PARTIAL THROMBOPLASTIN TIME 25.2 Seconds (25.1-36.5); PROTHROMBIN TIME 12.3 SECONDS (9.4-12.5)
[2018-05-11] MEDS ORDERED: cefTRIAXone 1 gm 1 GM/100 ML BAG IV STA (00:35)
[2018-05-11 02:47] LABS: URINE BILIRUBIN NEGATIVE (NEGATIVE); URINE BLOOD SMALL (NEGATIVE); URINE GLUCOSE (UA) NEGATIVE (NEGATIVE); URINE LEUKOCYTE ESTERASE LARGE Leu/uL (NEGATIVE); URINE PROTEIN 30 mg/dL (<30 mg/dL)
[2018-05-11 02:50] LABS: URINE APPEARANCE TURBID (CLEAR); URINE COLOR YELLOW (YELLOW)
[2018-05-11 02:55] LABS: URINE BACTERIA MANY (NEG); URINE EPITHELIAL CELLS 0 - 2 /hpf (0-5); URINE WBC 25 - 30 /hpf (0-6)
--- NOTE | 2018-05-11 10:59 | RAD ---
Date of service: 05/10/2018 HISTORY: Sepsis Patient COMPARISON: No prior. FINDINGS: LUNGS: No active pulmonary disease. PLEURA: GoNo significant pleural effusion identified, no pneumothorax apparent. CARDIOVASCULAR: Cardiomegaly. No evidence of acute, significant cardiovascular disease. OSSEOUS STRUCTURES: No significant abnormalities. VISUALIZED UPPER ABDOMEN: Normal. OTHER FINDINGS: None. IMPRESSION: No active disease. No significant interval change compared to the prior examination(s).
--- NOTE | 2018-05-11 12:55 | CARD ---
APPROVED REPORT Date of service: 05/10/2018 EKG Measurement Heart [id number] <Conclusion> Normal sinus rhythm Nonspecific ST abnormality Abnormal ECG
[2018-05-11] MEDS: Sodium Chloride 0.9% 1,000 ML IV SCH (13:17)
[2018-05-11] MEDS: Cefepime 1gm in NS 100ml 1 GM/100 ML BAG IVPB SCH (22:46)
[2018-05-12] MEDS: Cefepime 1gm in NS 100ml 1 GM/100 ML BAG IVPB SCH ×3 (05:33→21:29)
[2018-05-12] MEDS: Pantoprazole 20 mg EC Tab PO SCH (05:34)
[2018-05-12] MEDS ORDERED: Sodium Chloride 0.9% 1,000 ML IV SCH (09:24)
[2018-05-12 09:44] LABS: MEAN CORPUSCULAR HEMOGLOBIN 28.3 pg (25.0-35.0); MEAN CORPUSCULAR HGB CONC 33.3 g/dl (31.0-37.0); MEAN PLATELET VOLUME 9.7 fl (7.0-11.0); RBC 3.21 10^6/uL (3.5-6.1); RED CELL DISTRIBUTION WIDTH 13.8 % (11.5-14.5); WHITE BLOOD COUNT 6.6 10^3/ul (4.5-11.0)
[2018-05-12 09:47] LABS: HEMOGLOBIN 9.1 g/dL (12.0-16.0)
[2018-05-12 09:48] LABS: BLOOD UREA NITROGEN 10 mg/dL (7-21); GFR AFRICAN-AMERICAN > 60; GFR NON-AFRICAN AMERICAN > 60
[2018-05-12] MEDS ORDERED: Potassium Chloride 20 mEq ER Tab PO ONE (10:09)
--- NOTE | 2018-05-12 17:23 | CP.PCM.CON ---
History of Present Illness - History of Present Illness History of Present Illness: 87 year old female with PMH of dementia, history of TIA, Riley's esophagus, diverticulitis, COPD, GERD, S/P thyroidectomy, HTN, CAD came in to [facility] after family sent her in because of lethargy, disorientation and low grade fevers. There was no note of convulsions, no vomiting, no diarrhea, no loss of consciousness. In the ED, she was noted to have low grade fever. She is now more awake and alert. She denies headache or dizziness, no cough, no chest pain , no SOB at rest, diarrhea, no abdominal pain. Urine cx is showing gram negative bacilli and Infectious diseases consult is requested to further evaluate and manage. Review of Systems - Review of Systems All systems: reviewed and no additional remarkable complaints except (as per HPI ) Past Patient History - Infectious Disease Hx of Infectious Diseases: None - Tetanus Immunizations Tetanus Immunization: Unknown - Past Social History Smoking Status: Never Smoked - CARDIAC Hx Cardiac Disorders: Yes Hx Hypertension: Yes - PULMONARY Hx Respiratory Disorders: Yes Hx Asthma: (family denies) Hx Bronchitis: Yes Hx Chronic Obstructive Pulmonary Disease (COPD): Yes - NEUROLOGICAL Hx Neurological Disorder: Yes (syncope) HX Cerebrovascular Accident: Yes Hx Dementia: Yes - HEENT Hx HEENT Problems: No - RENAL Hx Chronic Kidney Disease: No - ENDOCRINE/METABOLIC Hx Endocrine Disorders: No Hx Hyperthyroidism: Yes Other/Comment: partial tyroidectomy - HEMATOLOGICAL/ONCOLOGICAL Hx Blood Disorders: No - INTEGUMENTARY Hx Dermatological Problems: Yes Other/Comment: outer aspect left foot/heel ankle discolored swollen - MUSCULOSKELETAL/RHEUMATOLOGICAL Hx Arthritis: Yes Hx Back Pain: Yes Hx Falls: Yes Hx Spinal Stenosis: Yes Hx Unsteady Gait: Yes (walker not ambulatory at this time) Other/Comment: chronic b/l knee pain due to arthritis and edema - GASTROINTESTINAL Hx Gastroesophageal Reflux: Yes - GENITOURINARY/GYNECOLOGICAL Hx Genitourinary Disorders: No Hx Incontinence: Yes (urine and stool) Hx Urinary Tract Infection: Yes - PSYCHIATRIC Hx Depression: No Hx Emotional Abuse: No Hx Physical Abuse: No Other/Comment: dementia - SURGICAL HISTORY Hx Cardiac Catheterization: Yes (pt does not recall catherization) Hx Cholecystectomy: Yes Other/Comment: left breast benign cyst, left ovary removed - ANESTHESIA Hx Anesthesia: No Meds Allergies/Adverse Reactions: Allergies Allergy/AdvReac Type Severity Reaction Status Date / Time No Known Allergies Allergy Verified 01/09/18 09:20 - Medications Medications: Current Medications Acetaminophen (Tylenol 325mg Tab) 650 mg PO Q6H PRN PRN Reason: Fever >100.5 F Last Admin: 05/11/18 13:51 Dose: 650 mg Clopidogrel Bisulfate (Plavix) 75 mg PO DAILY [facility] Last Admin: 05/11/18 13:15 Dose: 75 mg Furosemide (Lasix) 20 mg PO DAILY [facility] Last Admin: 05/11/18 13:16 Dose: 20 mg Sodium Chloride (Sodium Chloride 0.9%) 1,000 mls @ 100 mls/hr IV .Q10H [facility] Last Admin: 05/11/18 13:17 Dose: 100 mls/hr Cefepime HCl (Maxipime 1gm) 1 gm in 100 mls @ 100 mls/hr IVPB Q8 EMELINA PRN Reason: Protocol Stop: 05/20/18 22:01 Last Admin: 05/12/18 05:33 Dose: 100 mls/hr Isosorbide Mononitrate (Imdur Er) 30 mg PO DAILY [facility] Last Admin: 05/11/18 13:16 Dose: 30 mg Lisinopril (Zestril) 20 mg PO DAILY [facility] Memantine (Namenda) 5 mg PO BID [facility] Last Admin: 05/11/18 17:01 Dose: 5 mg Metoprolol Tartrate (Lopressor) 25 mg PO DAILY [facility] Pantoprazole Sodium (Protonix Ec Tab) 20 mg PO 0600 [facility] Last Admin: 05/12/18 05:34 Dose: 20 mg Physical Exam - Constitutional Appears: Non-toxic, Chronically Ill - Head Exam Head Exam: NORMAL INSPECTION - ENT Exam ENT Exam: Mucous Membranes Moist - Neck Exam Neck exam: Negative for: Lymphadenopathy, Meningismus - Respiratory Exam Respiratory Exam: Decreased Breath Sounds - Cardiovascular Exam Cardiovascular Exam: +S1, +S2 - GI/Abdominal Exam GI & Abdominal Exam: Soft. absent: Tenderness Results - Vital Signs Recent Vital Signs: Last Vital Signs Temp 98.4 F 05/11/18 22:24 Pulse 89 05/11/18 22:24 Resp 18 05/11/18 22:24 BP 141/71 05/11/18 22:24 Pulse Ox 96 05/11/18 22:24 - Labs Result Diagrams: 05/12/18 09:15 05/12/18 09:15 Assessment & Plan - Assessment and Plan (Free Text) Plan: Assessment Sepsis due to gram negative bacilli UTI dementia history of TIA Riley's esophagus diverticulitis COPD GERD S/P thyroidectomy HTN CAD Plan Started Cefepime pending identification and sensitivities of the gram negative bacilli in the urine will monitor clinically
[2018-05-13] MEDS: Pantoprazole 20 mg EC Tab PO SCH (05:13)
[2018-05-13] MEDS: Cefepime 1gm in NS 100ml 1 GM/100 ML BAG IVPB SCH ×2 (05:13→21:08)
[2018-05-13 07:25] LABS: BLOOD UREA NITROGEN 9 mg/dL (7-21); GFR AFRICAN-AMERICAN > 60; GFR NON-AFRICAN AMERICAN > 60
[2018-05-13] MEDS: Potassium Chloride 10 mEq ER Tab PO SCH ×2 (08:49→09:32)
--- NOTE | 2018-05-13 10:41 | PN ---
Copied To: Truong Martin MD Attending MD: Truong Martin MD. DATE: 05/13/2018 SUBJECTIVE: The patient is in bed, in no acute distress, was seen early this morning in room 562, bed 1. PHYSICAL EXAMINATION: VITAL SIGNS: Temperature is 98, blood pressure is 120/70, respiratory rate of 16. HEENT: Examination of HEENT is unremarkable. NECK: Supple. LUNGS: Have decreased breath sounds. HEART: Normal S1, S2. ABDOMEN: Soft, nontender. LABORATORY DATA: Laboratory examination reveals the patient's white count of 6.6, hemoglobin of 9, platelets of 274. The chemistries are noted. LDH is elevated. Urinalysis reveals 25-30 wbc's. Microbiology reveals E. coli in the urine. The sensitivity of the E. coli reveals sensitive to ceftriaxone. It is resistant to Bactrim. It is resistant to Cipro. Intermediate to ampicillin. Review of orders reveals the patient to be on cefepime. Blood cultures are reported to be negative. ASSESSMENT AND PLAN: An 87-year-old female with history of dementia, history of transient ischemic attack, Riley's esophagus, diverticulitis, chronic obstructive lung disease, hypertension, coronary artery disease, history of thyroidectomy, who admitted with fevers and tachycardia and positive urinalysis. #1 is sepsis with Escherichia coli urine as the source. Currently on cefepime. May change to either ceftriaxone or for discharge may be able to switch to p.o. Vantin at 200 mg p.o. b.i.d. x7 days. Overall prognosis is quite poor for this patient. We will discuss with PMD. Truong Martin MD
[2018-05-13] MEDS ORDERED: Potassium Chloride 10 mEq ER Tab PO ONE (18:05)
[2018-05-14] MEDS ORDERED: Pantoprazole 20 mg EC Tab PO SCH (06:00)
[2018-05-14 07:21] VITALS: RESP 16; TEMP 98.2; O2SAT 100
[2018-05-14] MEDS ORDERED: Potassium Chloride 10 mEq ER Tab PO SCH (08:00)
--- NOTE | 2018-05-14 08:31 | PN ---
Copied To: Pan Be MD Attending MD: Pan Be MD. DATE: 05/13/2018 SUBJECTIVE: The patient was seen this Saturday late morning in room 562, bed 2 with her daughter at the bedside. Her mental status is at baseline. In fact, she is rather sharp and alert today. Urinary tract symptoms and fever have subsided. I spoke with the family about discharge to home as we had planned; however, the recommendation from the physical therapist to the patient's family was that she go to subacute rehab, so they are now interested in looking into [facility]. kennel manager dog track and social problems specialist were notified and are working on this. Obviously, then she has been converted from an observation status to inpatient admission. We will continue the antibiotics for urinary tract infection and physical therapy. Pan Be MD
[2018-05-14] MEDS: Cefepime 1gm in NS 100ml 1 GM/100 ML BAG IVPB SCH (10:15)
[2018-05-14 10:25] VITALS: BP 154/87; PULSE 76
--- NOTE | 2018-05-14 13:30 | PN ---
Copied To: Truong Martin MD Attending MD: Truong Martin MD DATE: 05/14/2018 SUBJECTIVE: The patient is in bed, in no acute distress, nontoxic. PHYSICAL EXAMINATION: VITAL SIGNS: Temperature is 98, blood pressure is 175/90, respiratory rate 20. HEENT: Unremarkable. NECK: Supple. LUNGS: Have decreased breath sounds. HEART: Normal S1, S2. ABDOMEN: Soft, nontender. No organomegaly. No rebound. LABORATORY EXAMINATION: Reveals a white count of 6, hemoglobin of 9. Chemistries are noted and BUN 9, creatinine 0.8. Urinalysis is noted with 25 to 30 wbc's. Patient has E. coli in the urine. E. coli in the urine is reported to be sensitive to ceftriaxone and the blood culture has no growth. Review of orders reveals the patient to be on cefepime. Dr. Pan Be's note is reviewed from today. ASSESSMENT AND PLAN: This is an 87-year-old female seen in room 562, bed 1 with dementia, history of transient ischemic attack, Riley esophagus, diverticulitis, chronic obstructive lung disease, hypertension, coronary artery disease, history of thyroidectomy, admitted with the fever, tachycardia. Positive urinalysis, sepsis with Escherichia coli in the urine, sensitive Escherichia coli, may be able to switch to p.o. Vantin 200 mg p.o. b.i.d. x7 days upon discharge. We will follow with you. Truong Martin MD
--- NOTE | 2018-05-14 22:04 | HP ---
Copied To: Darron Be MD Attending MD: Darron Be MD HISTORY OF PRESENT ILLNESS: The patient is an 87-year-old female who is essentially homebound with severe senile dementia, who had been experiencing lethargy, malaise, shaking chills and fever at home. She was therefore brought to the emergency room by her family. She was diagnosed with a urinary tract infection about a month ago and was treated with antibiotics. PAST MEDICAL HISTORY: Positive for senile dementia, status post transient ischemic attacks, history of Riley's esophagitis, diverticulosis, gastroesophageal reflux disease, emphysema, hypertension, osteoarthritis with spinal stenosis. She is status post cholecystectomy, status post left oophorectomy and status post left breast biopsy. She never smoked. She is a nonalcoholic drinker. ALLERGIES: SHE HAS NO KNOWN MEDICAL ALLERGIES. MEDICATIONS: At the time of admission, her medications included Plavix, Lasix, isosorbide, lisinopril, Namenda, Lopressor, Protonix and Zantac. REVIEW OF SYSTEMS: The patient is a poor historian and cannot give good review of systems. However, as per family member, review of systems is otherwise negative. PHYSICAL EXAMINATION: HEENT: Unremarkable. NECK: Supple with no lymphadenopathy. No goiter. LUNGS: Clear anteriorly and laterally. HEART: Regular. No murmurs are appreciated. ABDOMEN: Soft, nontender with no organomegaly. EXTREMITIES: Free of cyanosis, clubbing or edema. NEUROLOGIC: There are no focal neurological signs. The patient is confused and a poor historian as mentioned above. VITAL SIGNS: Her temperature was 100 degrees in the emergency room. LABORATORY DATA: Laboratory studies revealed white blood cell count to be 9, hemoglobin and hematocrit are 11.4 and 34.4 respectively, platelet count is 343. Sodium is 138, potassium 4.5, blood urea nitrogen is 13 and creatinine is 0.8, nonfasting glucose is 105. On urinalysis, she has 2-5 red blood cells per high-powered field, 25-30 white blood cells per high-powered field. Leukocyte esterase is high. ASSESSMENT AND PLAN: The patient is admitted with urinary tract infection, mental status changes. She was given a dose of Rocephin in the emergency room and is admitted. She will be reevaluated in the morning. Darron Be MD
--- NOTE | 2018-05-15 05:54 | DS ---
Copied To: Darron Be MD Attending MD: Darron Be MD HISTORY OF PRESENT ILLNESS: The patient is an 87-year-old female who presented to the emergency room on 05/13/2018 with generalized malaise and shaking chills with diagnosis having a urinary tract infection and admitted. She was treated with antibiotics during her hospital stay and did well. The patient was found to have positive urine culture which was positive for E-coli, but she was treated with cefepime intravenously. She was continued on her other home medications. She was not accepted to [facility] rehab nor [facility] for ambulation post discharge. Therefore, the family decided to take the patient home to have physical therapy there. At the day of discharge, her hemoglobin and hematocrit was 9.1 and 27.3 respectively. White blood cell count was normal. She was afebrile. I will be calling into a local drug store for her to continue with Vantin 200 mg twice a day for the next 5 days post discharge and the patient is to continue her other medications as prior to hospitalization. FINAL DIAGNOSES: 1. Urinary tract infection. 2. Riley's esophagitis. 3. Gastroesophageal reflux disease. 4. Chronic obstructive pulmonary disease. 5. Hypertension. 6. Osteoarthritis with spinal stenosis. Darron Be MD
== END 2018-05-14 13:40 | disposition home or self-care (01) | DRG 690 ==
LOC: ED 21:46 → ERH 05-11 04:04 → 5RNO 05-11 06:05 → UNDODISOB 05-13 13:04 → OBSVTOIN 05-13 17:13
PROVIDERS: ADMIT Internal Medicine; ATTEND Internal Medicine
DX: N39.0 Urinary tract infection, site not specified (principal); B96.20 Unspecified Escherichia coli [E. coli] as the cause of diseases classified elsewhere; F03.90 Unspecified dementia, unspecified severity, without behavioral disturbance, psychotic disturbance, mood disturbance, and anxiety; K21.9 Gastro-esophageal reflux disease without esophagitis; J44.9 Chronic obstructive pulmonary disease, unspecified; I25.10 Atherosclerotic heart disease of native coronary artery without angina pectoris; I10 Essential (primary) hypertension; K22.70 Barrett's esophagus without dysplasia; M48.00 Spinal stenosis, site unspecified; M17.0 Bilateral primary osteoarthritis of knee; Z86.73 Personal history of transient ischemic attack (TIA), and cerebral infarction without residual deficits; Z90.721 Acquired absence of ovaries, unilateral; Z90.49 Acquired absence of other specified parts of digestive tract

== ENCOUNTER 2018-05-28 09:57 | Inpatient (IN) | payer MEDICARE, BC ==
[2018-05-28 10:16] VITALS: BMI 29.2
--- NOTE | 2018-05-28 10:37 | ED PDOC ---
Arrival/HPI - General Chief Complaint: Weakness/Neurological Deficit Time Seen by Provider: 05/28/18 10:02 Historian: Patient - History of Present Illness Narrative History of Present Illness (Text): 05/28/18 10:20 Bisi Perez is an 87 year old female, whose past medical history includes dementia, TIA, Barett's esophagus, diverticulitis, COPD, GERD, thyroidectomy, hypertension, and CAD, who presents to the emergency department brought in by EMS accompanied by daughter c/o not eating or drinking for 3 days. Daughter also noted patient has watery diarrhea x 2 days. Time/Duration: Other (see hpi) Context: Home Past Medical History - Provider Review Nursing Documentation Reviewed: Yes - Infectious Disease Hx of Infectious Diseases: None - Tetanus Immunization Tetanus Immunization: Unknown - Cardiac Hx Cardiac Disorders: Yes Hx Hypertension: Yes - Pulmonary Hx Chronic Obstructive Pulmonary Disease (COPD): Yes - Neurological HX Cerebrovascular Accident: Yes - HEENT Hx HEENT Disorder: No - Renal Hx Renal Disorder: No - Endocrine/Metabolic Hx Endocrine Disorders: No Hx Hyperthyroidism: Yes Other/Comment: partial tyroidectomy - Hematological/Oncological Hx Blood Disorders: No - Integumentary Hx Dermatological Disorder: Yes Other/Comment: outer aspect left foot/heel ankle discolored swollen - Musculoskeletal/Rheumatological Hx Arthritis: Yes - Gastrointestinal Hx Gastroesophageal Reflux: Yes - Genitourinary/Gynecological Hx Genitourinary Disorders: No Hx Incontinence: Yes (urine and stool) Hx Urinary Tract Infection: Yes - Psychiatric Hx Depression: No Hx Emotional Abuse: No Hx Physical Abuse: No Hx Substance Use: No Other/Comment: dementia - Past Surgical History Past Surgical History: Non-Contributing - Surgical History Hx Cardiac Catheterization: Yes (pt does not recall catherization) Hx Cholecystectomy: Yes Other/Comment: left breast benign cyst, left ovary removed - Anesthesia Hx Anesthesia: No - Suicidal Assessment Feels Threatened In Home Enviroment: No Family/Social History - Physician Review Nursing Documentation Reviewed: Yes Family/Social History: Other (noncontributory) Smoking Status: Never Smoked Hx Alcohol Use: No Hx Substance Use: No Hx Substance Use Treatment: No Allergies/Home Meds Allergies/Adverse Reactions: Allergies No Known Allergies Allergy (Verified 01/09/18 09:20) Home Medications: Home Meds Medication Instructions Recorded Confirmed Clopidogrel [Plavix] 1 tab PO DAILY 04/20/18 05/28/18 Furosemide [Lasix] 1 tab PO DAILY 04/20/18 05/28/18 Isosorbide Mononitrate [Isosorbide 1 tab PO DAILY 04/20/18 05/28/18 Mononitrate ER] Lisinopril [Prinivil] 1 tab PO DAILY 04/20/18 05/28/18 Memantine [Namenda] 1 tab PO BID 04/20/18 05/28/18 Metoprolol Tartrate [Lopressor] 1 tab PO DAILY 04/20/18 05/28/18 Pantoprazole [Protonix EC Tab] 1 tab PO DAILY 04/20/18 05/28/18 Ranitidine HCl [Zantac] 1 tab PO DAILY 04/20/18 05/28/18 Review of Systems - Review of Systems Systems not reviewed;Unavailable: Dementia (information taken from daughter) Constitutional: Normal, Other (see hpi). absent: Fatigue, Weight Change, Fevers , Night Sweats Eyes: Normal ENT: Normal Respiratory: Normal. absent: SOB, Cough Cardiovascular: Normal. absent: Chest Pain, Palpitations Gastrointestinal: Diarrhea Genitourinary Female: Normal Musculoskeletal: Normal Skin: Normal Neurological: Normal Endocrine: Normal Hemo/Lymphatic: Normal Psychiatric: Normal Physical Exam Vital Signs Temp Pulse Resp BP Pulse Ox 05/28/18 12:07 96.7 F L 99 H 18 121/66 98 05/28/18 11:56 96.7 F L 05/28/18 11:13 98 H 18 97 05/28/18 09:57 99.3 F 100 H 20 98/54 L 97 Temperature: Afebrile Blood Pressure: Normal Pulse: Regular Respiratory Rate: Normal Appearance: Positive for: Well-Appearing, Non-Toxic Pain Distress: None Mental Status: Positive for: Confused, other (patient is awake) - Systems Exam Head: Present: Atraumatic, Normocephalic Pupils: Present: PERRL Extroacular Muscles: Present: EOMI Conjunctiva: Present: Normal Ears: Present: Normal Mouth: Present: Moist Mucous Membranes, Normal Tounge. No: Drooling, Trismus, Normal Lips (lips are dry) Pharnyx: Present: Normal. No: ERYTHEMA, EXUDATE, TONSILS ENLARGED Neck: Present: Normal Range of Motion. No: Meningeal Signs Respiratory/Chest: Present: Clear to Auscultation, Good Air Exchange. No: Respiratory Distress, Accessory Muscle Use, Retracting, Rhonchi Cardiovascular: Present: Regular Rate and Rhythm, Normal S1, S2. No: Murmurs Abdomen: Present: Normal Bowel Sounds. No: Tenderness, Distention, Peritoneal Signs, Rebound, Guarding Upper Extremity: Present: Normal Inspection, Normal ROM Lower Extremity: Present: Normal Inspection, NORMAL PULSES. No: Edema Neurological: Present: GCS=15, CN II-XII Intact Skin: Present: Warm, Dry, Normal Color. No: Rashes Psychiatric: Present: Alert, Oriented x 3, Normal Insight, Normal Concentration Medical Decision Making ED Course and Treatment: 05/28/18 11:[address] Soto, bowling alley manager regarding elevated Troponin, BUN, and creatine. I told him patient will be admitted for AMS. 05/28/18 13:34 I spoke with regarding labs, ua, ekg, elevated troponin, leukocytosis, cystitis, ams, dehydration. I told Dr. Be that I had consulted Dr. Soto regarding elevated Troponin, and I believe it was secondary to dehydration, and renal insufficiency. He agreed with plan for admission. Re-evaluation Time: 13:37 Reassessment Condition: Re-examined, Improving,but remains with symptoms - Lab Interpretations Lab Results: 05/28/18 10:30 05/28/18 10:30 Lab Results 05/28/18 11:02: NT-Pro-B Natriuret Pep 3460 H 05/28/18 10:30: Sodium 144, Potassium 3.2 L, Chloride 103, Carbon Dioxide 27, Anion Gap 18, BUN 45 H, Creatinine 1.5 H, Est GFR ( Amer) 40, Est GFR ( Non-Af Amer) 33, Random Glucose 120 H, Calcium 9.0, Total Bilirubin 1.1, AST 131 H D, ALT 36, Alkaline Phosphatase 104, Lactate Dehydrogenase 755 H, Total Creatine Kinase 2296 H, CK-MB (CK-2) 6.1 H, CK-MB (CK-2) % 0.3 L, Troponin I 0.24 H* D, Total Protein 7.1, Albumin 3.5, Globulin 3.6, Albumin/Globulin Ratio 1.0 L, Amylase 75, Lipase 117 05/28/18 10:30: Urine Color Dark brown, Urine Appearance Sl cloudy, Urine pH 5.5 , Ur Specific [place] 1.025, Urine Protein 30 H, Urine Glucose (UA) 100 H, Urine Ketones Trace H, Urine Blood Small H, Urine Nitrate Positive H, Urine Bilirubin Moderate H, Urine Urobilinogen 1.0 H, Ur Leukocyte Esterase Trace H, Urine RBC 5 - 10, Urine WBC 2 - 5, Ur Epithelial Cells 4 - 5, Amorphous Sediment Small, Urine Bacteria Many, Hyaline Casts 0 - 2, Urine Other Uyeast 05/28/18 10:30: PT 13.9 H, INR 1.20, APTT 29.8 05/28/18 10:30: WBC 19.8 H D, RBC 4.46, Hgb 12.6 D, Hct 36.8, MCV 82.5, MCH 28.3, MCHC 34.2, RDW 13.9, Plt Count 477 H, MPV 10.1, Gran % 87.5 H, Lymph % ( Auto) 4.6 L, [place] % (Auto) 7.8 H, Eos % (Auto) 0.0 L, Baso % (Auto) 0.1, Gran # 17.30 H, Lymph # (Auto) 0.9 L, [place] # (Auto) 1.5 H, Eos # (Auto) 0.0, Baso # ( Auto) 0.01, Neutrophils % (Manual) 91 H, Lymphocytes % (Manual) 6 L, Monocytes % (Manual) 3, Platelet Evaluation Normal I have reviewed the lab results: Yes - RAD Interpretation Narrative RAD Interpretations (Text): 05/28/18 12:11 PROCEDURE: CT HEAD WITHOUT CONTRAST. FINDINGS: HEMORRHAGE: No intracranial hemorrhage. BRAIN: No mass effect or edema. Chronic microvascular changes are seen in the periventricular white matter. Mild atrophy VENTRICLES: Unremarkable. No hydrocephalus. CALVARIUM: Unremarkable. PARANASAL SINUSES: Unremarkable as visualized. No significant inflammatory changes. MASTOID AIR CELLS: Unremarkable as visualized. No inflammatory changes. OTHER FINDINGS: None. IMPRESSION: No acute findings Radiology Orders: 05/28/18 10:27 CHEST PORTABLE [RAD] Stat 05/28/18 10:28 CHEST,ABDOMEN, PELVIS W/O CONT [CT] Stat 05/28/18 10:34 HEAD W/O CONTRAST [CT] Stat - EKG Interpretation Interpreted by ED Physician: Yes (NSR @ 100 bpm. LVH with repolarization. No ST changes) Type: 12 lead EKG Comparison: Similar to previous EKG - Medication Orders Current Medication Orders: Sodium Chloride (Sodium Chloride 0.9%) 1,000 mls @ 100 mls/hr IV .Q10H [facility] Last Admin: 05/28/18 10:49 Dose: 100 mls/hr eMAR Start Stop Document 05/28/18 10:49 LA (Rec: 05/28/18 10:51 LA [id number]) Intravenous Solution Start Date 05/28/18 Start Time 10:51 Discontinued Medications Aspirin (Aspirin Supp) 300 mg RC STAT STA Stop: 05/28/18 11:33 Last Admin: 05/28/18 12:11 Dose: 300 mg MAR Pain/Vitals Document 05/28/18 12:11 LA (Rec: 05/28/18 12:11 LA [id number]) Pain Reassessment Is This A Pain ReAssessment? No Sleep Is patient sleeping during reassessment? No Presence of Pain Presence of Pain No Famotidine (Pepcid) 20 mg IVP STAT STA Stop: 05/28/18 10:27 Last Admin: 05/28/18 10:52 Dose: 20 mg IVP Administration Document 05/28/18 10:52 LA (Rec: 05/28/18 10:52 LA [id number]) Charges for Administration # of IVP Administrations 1 Ceftriaxone Sodium (Rocephin 1 Gram Ivpb) 1 gm in 100 mls @ 200 mls/hr IVPB STAT STA PRN Reason: Protocol Stop: 05/28/18 11:46 Last Admin: 05/28/18 12:10 Dose: 200 mls/hr eMAR Start Stop Document 05/28/18 12:10 LA (Rec: 05/28/18 12:11 LA [id number]) Intravenous Solution Start Date 05/28/18 Start Time 12:11 End Date 05/28/18 End time 12:41 Total Infusion Time 30 Disposition/Present on Arrival - Present on Arrival Any Indicators Present on Arrival: No History of DVT/PE: No History of Uncontrolled Diabetes: No Urinary Catheter: No History of Decub. Ulcer: No History Surgical Site Infection Following: None - Disposition Have Diagnosis and Disposition been Completed?: Yes Diagnosis: Renal failure, Dehydration, Altered mental status, Failure to thrive, Elevated troponin, UTI (urinary tract infection) Disposition: HOSPITALIZED Disposition Time: 13:42 Patient Plan: Admission Condition: STABLE Forms: [employer] (Pashto)
[2018-05-28] MEDS: Sodium Chloride 0.9% 1,000 ML IV SCH (10:49)
[2018-05-28 11:06] LABS: INR 1.2; PARTIAL THROMBOPLASTIN TIME 29.8 Seconds (25.1-36.5); PROTHROMBIN TIME 13.9 SECONDS (9.4-12.5)
[2018-05-28 11:09] LABS: ALBUMIN 3.5 g/dL (3.0-4.8)
[2018-05-28 11:10] LABS: BASO # 0.01 K/mm3 (0.0-2.0); BASO % 0.1 % (0.0-3.0); GRAN % 87.5 % (50.0-68.0); HEMOGLOBIN 12.6 g/dL (12.0-16.0); LYMPH # 0.9 (1.2-3.4); LYMPH % 4.6 % (22.0-35.0); MEAN CELL VOLUME 82.5 fl (80.0-105.0); MEAN CORPUSCULAR HEMOGLOBIN 28.3 pg (25.0-35.0); MEAN CORPUSCULAR HGB CONC 34.2 g/dl (31.0-37.0); MEAN PLATELET VOLUME 10.1 fl (7.0-11.0); MONO # 1.5 (0.1-0.6); MONO % 7.8 % (1.0-6.0); PLATELET COUNT 477 10^3/uL (120.0-450.0); RBC 4.46 10^6/uL (3.5-6.1); RED CELL DISTRIBUTION WIDTH 13.9 % (11.5-14.5); WHITE BLOOD COUNT 19.8 10^3/ul (4.5-11.0)
[2018-05-28] MEDS ORDERED: cefTRIAXone 1 gm 1 GM/100 ML BAG IVPB STA (11:17)
--- NOTE | 2018-05-28 11:17 | CT ---
Date of service: 05/28/2018 PROCEDURE: CT HEAD WITHOUT CONTRAST. HISTORY: [facility] COMPARISON: 01/09/2018 TECHNIQUE: Axial computed tomography images were obtained through the head/brain without intravenous contrast. Radiation dose: Total exam DLP = 659 mGy-cm. This CT exam was performed using one or more of the following dose reduction techniques: Automated exposure control, adjustment of the mA and/or kV according to patient size, and/or use of iterative reconstruction technique. FINDINGS: HEMORRHAGE: No intracranial hemorrhage. BRAIN: No mass effect or edema. Chronic microvascular changes are seen in the periventricular white matter. Mild atrophy VENTRICLES: Unremarkable. No hydrocephalus. CALVARIUM: Unremarkable. PARANASAL SINUSES: Unremarkable as visualized. No significant inflammatory changes. MASTOID AIR CELLS: Unremarkable as visualized. No inflammatory changes. OTHER FINDINGS: None. IMPRESSION: No acute findings
--- NOTE | 2018-05-28 11:27 | CT ---
Date of service: 05/28/2018 PROCEDURE: CT Chest, Abdomen and Pelvis without intravenous contrast HISTORY: abdominal pain, and cough COMPARISON: None available. TECHNIQUE: Radiation dose: Total exam DLP = 694 mGy-cm. This CT exam was performed using one or more of the following dose reduction techniques: Automated exposure control, adjustment of the mA and/or kV according to patient size, and/or use of iterative reconstruction technique. FINDINGS: CT CHEST WITHOUT CONTRAST: LUNGS: Clear. No nodule, mass or consolidation. MEDIASTINUM: Unremarkable. Normal caliber aorta and pulmonary arterial trunk. Normal size heart. LYMPH NODES: Unremarkable. PLEURA: Unremarkable. No pneumothorax. No pleural fluid. BONES: There is a soft tissue mass adjacent to the right posterior scapula measuring 23 x 52 mm. This is unchanged OTHER FINDINGS: None. CT ABDOMEN AND PELVIS: LIVER: Unremarkable. No gross lesion or ductal dilatation. 3 cm cyst in the right lobe of the liver GALLBLADDER AND BILE DUCTS: Gallbladder removed PANCREAS: Unremarkable. No gross lesion or ductal dilatation. SPLEEN: Unremarkable. ADRENALS: Unremarkable. No mass. KIDNEYS AND URETERS: Unremarkable. No hydronephrosis. No solid mass. VASCULATURE: Unremarkable. No aortic aneurysm. BOWEL: There is diverticulosis of the sigmoid colon. There is mild mural thickening in the splenic flexure, possible colitis APPENDIX: Normal appendix. PERITONEUM: Unremarkable. No free fluid. No free air. LYMPH NODES: Unremarkable. No enlarged lymph nodes. BLADDER: Unremarkable. REPRODUCTIVE: Unremarkable. BONES: No acute fracture. OTHER FINDINGS: None. IMPRESSION: There is diverticulosis of the sigmoid colon. There is mild mural thickening in the splenic flexure, possible colitis There is a soft tissue mass adjacent to the right posterior scapula measuring 23 x 52 mm. This is unchanged
[2018-05-28 11:30] LABS: TROPONIN I 0.24 ng/mL
[2018-05-28 11:43] LABS: LYMPHOCYTE 6 % (22.0-35.0); MONOCYTE 3 % (1.0-6.0); NEUTROPHIL 91 % (50.0-70.0); PLATELET ESTIMATE NORMAL (NORMAL)
[2018-05-28 12:23] LABS: PH,URINE 5.5 (4.7-8.0); URINE BILIRUBIN MODERATE (NEGATIVE); URINE BLOOD SMALL (NEGATIVE); URINE GLUCOSE (UA) 100 mg/dL (NEGATIVE); URINE LEUKOCYTE ESTERASE TRACE Leu/uL (NEGATIVE); URINE PROTEIN 30 mg/dL (<30 mg/dL)
[2018-05-28 12:24] LABS: URINE APPEARANCE SL CLOUDY (CLEAR); URINE COLOR DARK BROWN (YELLOW)
--- NOTE | 2018-05-28 12:29 | RAD ---
Date of service: 05/28/2018 HISTORY: admission COMPARISON: 05/10/2018. FINDINGS: LUNGS: Improved aeration of the lungs compared to the prior study. PLEURA: No significant pleural effusion identified, no pneumothorax apparent. CARDIOVASCULAR: No radiographic findings to suggest acute or significant cardiovascular disease. OSSEOUS STRUCTURES: No significant abnormalities. VISUALIZED UPPER ABDOMEN: Normal. OTHER FINDINGS: None. IMPRESSION: Residual left lower lobe infiltrate/atelectasis.
[2018-05-28 12:30] LABS: URINE BACTERIA MANY (NEG); URINE HYALINE CAST 0 - 2 /hpf
[2018-05-28 12:31] LABS: URINE AMORPHOUS SEDIMENT SMALL
[2018-05-28 13:04] LABS: CK MB% 0.3 % (2.5-3.0); CK-MB 6.1 ng/mL (0.0-3.6)
--- NOTE | 2018-05-28 17:50 | CARD ---
APPROVED REPORT Date of service: 05/28/2018 EKG Measurement Heart [id number] <Conclusion> Normal sinus rhythm Left ventricular hypertrophy ST-T Changes.
[2018-05-29] MEDS: Sodium Chloride 0.9% 1,000 ML IV SCH ×2 (07:40)
[2018-05-29 09:28] LABS: EOS % 0.2 % (1.5-5.0); GRAN # 9.73 (1.4-6.5); HEMOGLOBIN 10.9 g/dL (12.0-16.0); LYMPH # 0.9 (1.2-3.4); LYMPH % 7.6 % (22.0-35.0); MEAN CELL VOLUME 85.1 fl (80.0-105.0); MEAN CORPUSCULAR HEMOGLOBIN 27.5 pg (25.0-35.0); MEAN CORPUSCULAR HGB CONC 32.3 g/dl (31.0-37.0); MEAN PLATELET VOLUME 9.9 fl (7.0-11.0); MONO # 0.8 (0.1-0.6); MONO % 7.2 % (1.0-6.0); RBC 3.96 10^6/uL (3.5-6.1); RED CELL DISTRIBUTION WIDTH 13.9 % (11.5-14.5); WHITE BLOOD COUNT 11.5 10^3/ul (4.5-11.0)
[2018-05-29 09:39] LABS: ALB/GLOB RATIO 0.9 (1.1-1.8); ALBUMIN 2.8 g/dL (3.0-4.8); CALCIUM 8.3 mg/dL (8.4-10.5); TROPONIN I 0.16 ng/mL; URIC ACID 8.2 mg/dL (2.5-6.2)
[2018-05-29 09:44] LABS: FREE T4 2.02 ng/dL (0.78-2.19)
[2018-05-29 09:46] LABS: CK-MB 4.3 ng/mL (0.0-3.6)
[2018-05-29] MEDS ORDERED: levoFLOXacin 500 mg in D5W 500 MG/100 ML BAG IVPB SCH (10:00)
[2018-05-29] MEDS: Pantoprazole 40 mg EC Tab PO SCH (11:33)
[2018-05-30 07:19] LABS: BASO # 0.01 K/mm3 (0.0-2.0); BASO % 0.2 % (0.0-3.0); EOS % 0.6 % (1.5-5.0); GRAN # 4.84 (1.4-6.5); GRAN % 72.9 % (50.0-68.0); LYMPH % 14.3 % (22.0-35.0); MEAN CELL VOLUME 85.6 fl (80.0-105.0); MEAN CORPUSCULAR HEMOGLOBIN 27.2 pg (25.0-35.0); MEAN CORPUSCULAR HGB CONC 31.8 g/dl (31.0-37.0); MEAN PLATELET VOLUME 9.9 fl (7.0-11.0); MONO # 0.8 (0.1-0.6); RBC 4.04 10^6/uL (3.5-6.1); RED CELL DISTRIBUTION WIDTH 13.8 % (11.5-14.5); WHITE BLOOD COUNT 6.6 10^3/ul (4.5-11.0)
[2018-05-30 07:31] LABS: BLOOD UREA NITROGEN 24 mg/dL (7-21); CALCIUM 8.4 mg/dL (8.4-10.5); GFR NON-AFRICAN AMERICAN > 60
[2018-05-30] MEDS: levoFLOXacin 250 mg in D5W 250 MG/50 ML BAG IVPB SCH (10:27)
[2018-05-30] MEDS ORDERED: Potassium Chloride 20 mEq ER Tab PO ONE (10:29)
[2018-05-30] MEDS: Pantoprazole 40 mg EC Tab PO SCH (11:41)
[2018-05-31] MEDS: levoFLOXacin 250 mg in D5W 250 MG/50 ML BAG IVPB SCH (11:09)
[2018-05-31] MEDS: Pantoprazole 40 mg EC Tab PO SCH (11:10)
--- NOTE | 2018-05-31 11:51 | PN ---
Copied To: Darron Be MD Attending MD: Darron Be MD DATE: 05/30/2018 DAILY PROGRESS NOTE SUBJECTIVE: The patient is an 87-year-old female with a history of senile dementia, status post CVA, TIA, history of COPD, who is admitted to [facility] 2 days ago with dehydration, mental status changes. She was being treated with intravenous Levaquin. Her white blood cell count is down to 6.6 this morning. Hemoglobin and hematocrit are 11 and 34.6. Her potassium was low yesterday. This had been corrected to 3.5 today. Blood urea nitrogen is 24, creatinine 0.8. She was afebrile. Blood pressure is 142/67, heart rate is 78. To date, her blood, urine and wound cultures have been negative. When seen today, the patient is more awake. Her eyes were open. She recognized me. She said good morning. She thanked me for visiting her. So, there is some clinical improvement with IV fluids and IV antibiotics that she is receiving. We are continuing with the current regimen and continuing to follow the patient closely. Darron Be MD
--- NOTE | 2018-05-31 13:37 | PN ---
Copied To: Darron Be MD Attending MD: Darron Be MD DATE: 05/30/2018 SUBJECTIVE: The patient is an 87-year-old female who was admitted to [facility] 2 days ago with a urinary tract infection, sacral decubitus ulcer, dehydration, mental status changes. The patient apparently had refused to eat or drink for the 3 days prior to hospitalization. She was discharged from [facility] about 2 weeks ago with similar symptoms of urinary tract infection and mental status changes. She was started on intravenous antibiotics and is improving. Her mental status today is still rather obtunded; however, her white blood cell count came down from 19.5 yesterday to 11.5 this morning. Hemoglobin and hematocrit are 10.9 and 33.7, potassium is low at 3.1. This is being supplemented today. Wound care nurse is evaluating and treating her sacral decubitus. Her blood pressure is 106/55, heart rate is 80 beats per minute, so we are continuing with the current regimen and the patient is to be reevaluated in the morning. Darron Be MD : 05/31/2018 11:08:55
[2018-05-31] MEDS: Potassium Chl 10 mEq in D5-1/2 1,000 ML IV SCH (15:00)
--- NOTE | 2018-05-31 15:33 | HP ---
Copied To: Darron Be MD Attending MD: Darron Be MD ADMISSION HISTORY AND PHYSICAL HISTORY OF PRESENT ILLNESS: The patient is an 87-year-old female who was brought to the emergency room because of dehydration and mental status changes. I received a phone call from the visiting nurse who was following up on the patient and was told the patient did not eat or drink anything for the past 3 days. Hospitalization was therefore suggested, squad was called, and the patient presented to the emergency room. She was recently hospitalized 2 weeks ago with mental status changes and a urinary tract infection. PAST MEDICAL HISTORY: Positive for senile dementia, status post transient ischemic attacks, history of Riley esophagitis, diverticulosis, gastroesophageal reflux disease, emphysema, hypertension, osteoarthritis with spinal stenosis. PAST SURGICAL HISTORY: She is status post cholecystectomy, status post left oophorectomy, status post left breast biopsy. SOCIAL HISTORY: She never smoked. She is a nonalcoholic drinker. ALLERGIES: SHE HAS NO KNOWN MEDICAL ALLERGIES. MEDICATIONS: On admission include Plavix, Lasix, isosorbide, lisinopril, Namenda, Lopressor, Protonix, and Zantac. REVIEW OF SYSTEMS: The patient is rather obtunded on admission, non speaking, non verbalizing, history could not be taken, nor review of systems directly from the patient. PHYSICAL EXAMINATION: HEENT: The Head, eyes, ears, nose, and throat are unremarkable mucous membranes are moist. NECK: Supple with no lymphadenopathy. No goiter. LUNGS: Clear to auscultation and percussion. HEART: Regular. Systolic murmur is appreciated. ABDOMEN: Round, soft, and nontender. EXTREMITIES: Free of cyanosis, clubbing, or edema. There is a sacral decubitus ulcer noted. NEUROLOGIC: The patient is obtunded. Deep tendon reflexes are equal bilaterally. VITAL SIGNS: Temperature is 99 degrees Fahrenheit, blood pressure is 119/61, heart rate is 91. LABORATORY STUDIES: Show the white blood cell count to be 19.8, hemoglobin and hematocrit are 12.6 and 36.8 respectively, platelet count is 477. Sodium is 144, potassium 3.2. Blood urea nitrogen 45, creatinine 1.5. Glucose is 120. Her CK is 0.25. BNP is elevated at 3460. CAT scan of the abdomen shows a questionable colitis at the splenic flexure due to the thickening of the colonic wall. There are some residual infiltrates in her left lower lobe noted. EKG shows regular sinus rhythm with left ventricular hypertrophy. ST-T wave changes. CAT scan of the head was done and this is negative. So the patient is admitted with a possible urinary tract infection, sepsis, mental status changes. We are continuing the patient's regular medications from home. We are starting on Levaquin 250 mg intravenously daily. The patient will be reevaluated in the morning. Darron Be MD
--- NOTE | 2018-05-31 23:33 | CON ---
Copied To: Truong Martin MD Attending MD: Truong Martin MD DATE: 05/31/2018 LOCATION: The patient is seen in room 275, bed one. CHIEF COMPLAINT: Enterococcus from her sacral wound x1 day duration. HISTORY OF PRESENT ILLNESS: This is an 87-year-old female with past medical history significant for dementia, TIA, Riley's esophagus, diverticulitis, chronic obstructive lung disease, GERD, hypertension and coronary artery disease and was admitted because of poor appetite, not eating well, not able to drink. The patient also noted to have diarrhea. The patient also had a culture of her sacral decubitus, which grew Enterococcus and Infectious Disease consultation requested. Review of systems reveals the patient has no fevers. No chills. No abdominal pain. No diarrhea now. No bright red blood per rectum. REVIEW OF SYSTEMS: 12-point review of systems is performed. PAST MEDICAL HISTORY: Significant for TIA, CVA, Riley's esophagus, dementia, hypertension, coronary artery disease, gastroesophageal reflux disease, chronic obstructive lung disease, high cholesterol, arthritis. PAST SURGICAL HISTORY: Significant for thyroidectomy. ALLERGIES: THE PATIENT HAS NO KNOWN ALLERGIES. MEDICATIONS AT HOME: Reviewed. PHYSICAL EXAMINATION: GENERAL: On exam, the patient is in bed. The patient's daughter and family members are in bed. VITAL SIGNS: Temperature of 96, it was up to 99.3; heart rate of 96, up to 101; respiratory rate of 20. Blood pressure is 126/70. HEENT: Examination of HEENT is unremarkable. NECK: Supple. LUNGS: Have decreased breath sounds. HEART: Normal S1, S2. ABDOMEN: Soft, nontender. SKIN: Examination of sacral ulcer reveals a stage II ulcer. No discharge. No erythema. No evidence of infection of the sacral decubitus. Just a small stage II ulcer. LABORATORY DATA: Laboratory examination reveals the white count was 19,800, hemoglobin of 12, platelets of 477 with 87% granulocytosis. Coagulation is noted. The chemistries reveals a BUN of 45, creatinine is 1.5. Initially, in April, it was 0.8. The patient did have elevation of the troponins. Urinalysis is unremarkable, 2-5 wbc's. Microbiology reveals the urine cultures negative, blood cultures are negative. The sacral culture is Enterococcus faecium. Sensitive to Zyvox and vancomycin, resistant to ampicillin. The patient had an EKG on admission, read by Dr. Gibbons with a QTc of 474. Left ventricular hypertrophy, normal sinus rhythm. Chest x-ray: Improved aeration, residual left lower lobe infiltrate or atelectasis. CAT scan of the chest and abdomen and pelvis: Diverticulosis, mural thickening, possible colitis. CAT scan of the chest was clear, negative. No pneumonia. CAT scan of the head reveals to be unremarkable. ASSESSMENT AND PLAN: An 87-year-old female with dementia, transient ischemic attack, cerebrovascular accident, Riley's esophagus, diverticulosis and diverticulitis and chronic obstructive lung disease, gastroesophageal reflux disease, hypertension, high cholesterol, coronary artery disease, arthritis, presenting with systemic inflammatory response syndrome, acute kidney injury with change of creatinine from 0.8 to 1.5, stage II sacral ulcer, not infected and [id number] myocardial infarction. We will discontinue the Levaquin. The patient did have initially systemic inflammatory response syndrome; however, it appears to be white count is normal as of yesterday. Case discussed with Dr. Darron Be. We will follow with you. The patient is at risk for developing nosocomial infections. Truong Martin MD
[2018-06-01] MEDS: Potassium Chl 10 mEq in D5-1/2 1,000 ML IV SCH ×2 (03:30→16:12)
--- NOTE | 2018-06-01 09:58 | PN ---
Copied To: Truong Martin MD Attending MD: Truong Martin MD DATE: 06/01/2018 SUBJECTIVE: The patient is in bed, in no acute distress, nontoxic. PHYSICAL EXAMINATION: VITAL SIGNS: On exam, temperature is 98, blood pressure is 150/90, respiratory rate of 18, heart rate of 82. HEENT: Examination of HEENT is unremarkable. NECK: Supple. LUNGS: Have decreased breath sounds. HEART: Normal S1, S2. ABDOMEN: Soft, nontender. LABORATORY DATA: Laboratory examination reveals a white count of 6.6, hemoglobin of 11. The chemistries are noted. The patient does have troponin elevations. Urinalysis is noted. Microbiology reveals the urine cultures negative, blood cultures negative. There is Enterococcus from the sacrum. The patient's EKG does show left ventricular hypertrophy. ASSESSMENT AND PLAN: An 87-year-old female seen earlier today in [facility], bed 1 with dementia, transient ischemic attack, cerebrovascular accident, Riley's esophagus, diverticulosis and diverticulitis, chronic obstructive lung disease, gastroesophageal reflux disease, hypertension, high cholesterol, coronary artery disease, who was admitted with systemic inflammatory response syndrome, acute kidney injury and stage II sacral ulcer, not infected, it is colonized with Enterococcus, not requiring therapy in a patient with [id number] myocardial infarction. Currently, off of antibiotics, afebrile, normal white count. Case discussed with PMD. The patient is at risk for developing nosocomial infections. We will follow with you. Truong Martin MD
[2018-06-01] MEDS: Pantoprazole 40 mg EC Tab PO SCH (10:53)
[2018-06-02] MEDS: Potassium Chl 10 mEq in D5-1/2 1,000 ML IV SCH ×2 (05:53→16:22)
[2018-06-02] MEDS: Pantoprazole 40 mg EC Tab PO SCH (09:40)
[2018-06-02 12:18] LABS: BASO # 0.04 K/mm3 (0.0-2.0); BASO % 0.4 % (0.0-3.0); EOS # 0.3 (0.0-0.7); EOS % 2.8 % (1.5-5.0); GRAN # 5.48 (1.4-6.5); HEMOGLOBIN 11.6 g/dL (12.0-16.0); LYMPH # 2.3 (1.2-3.4); LYMPH % 25.6 % (22.0-35.0); MEAN CELL VOLUME 85.1 fl (80.0-105.0); MEAN CORPUSCULAR HEMOGLOBIN 27.8 pg (25.0-35.0); MEAN CORPUSCULAR HGB CONC 32.7 g/dl (31.0-37.0); MEAN PLATELET VOLUME 9.5 fl (7.0-11.0); MONO % 11.2 % (1.0-6.0); RBC 4.17 10^6/uL (3.5-6.1); RED CELL DISTRIBUTION WIDTH 13.5 % (11.5-14.5); WHITE BLOOD COUNT 9.1 10^3/ul (4.5-11.0)
--- NOTE | 2018-06-02 12:26 | CP.PCM.CON ---
History of Present Illness - History of Present Illness History of Present Illness: Seen and examined at bedside, chart reviewed. Request for consult is for Feeding tube. HPI: This is a 87 year old female with a PMH of senile dementia, TIA, HTN, GERD , BE was brought to the hospital for dehydration and change in mental status. Patient was seen by visiting nurse and was informed that family was not eating or drinking. Was advised by PCP to go to hospital for further evaluation. Patient is a poor historian, history obtained from chart, medical team and daughter/POA who was called Elaine Perez. Daughter informed that patient has poor appetite and is inconsistent, pockets food. Patient had swallow evaluation and noted to continue to have limited oral intake, started on calorie count and on puree nectar thick liquid. As per the nursing staff, patient has not had anything to eat,even when coached. Has not been taking medication. Patient denies N/V or abdominal pain. Attempted to give juice, patient wrapped lips around the straw only. No reports of SOB, CP, overt GI bleeding. As per daughter she thinks patient may have had a colon, but not certain, not certain of EGD. Ct head done and this was negative for edema or bleed, show chronic microvascular changes Ct chest, abdomen and pelvis: diverticulosis, mild thickening splenic flexure, possible colitis PMH: Senile dementia, TIA, Barretts Esophagus, diverticulosis, GERD, emphysema, HTN, osteoarthritis with spinal stenosis. PSH: cholecystectomy,left oophorectomy, let breast biospy Allergies: NDKA MEDS: reviewed was per MAR Family hx: noncontributory at this time Social HX: no h/o smoking,etoh or illicit drugs ROS: systems reviewed with positive findings, see HPI Past Patient History - Infectious Disease Hx of Infectious Diseases: None - Tetanus Immunizations Tetanus Immunization: Unknown - Past Social History Smoking Status: Never Smoked - CARDIAC Hx Cardiac Disorders: Yes (CAD) Hx Hypertension: Yes - PULMONARY Hx Chronic Obstructive Pulmonary Disease (COPD): Yes - NEUROLOGICAL Hx Dementia: Yes Hx Transient Ischemic Attacks (TIA): Yes - HEENT Hx HEENT Problems: No - RENAL Hx Chronic Kidney Disease: No - ENDOCRINE/METABOLIC Hx Hyperthyroidism: Yes Other/Comment: partial tyroidectomy - HEMATOLOGICAL/ONCOLOGICAL Hx Blood Disorders: No - INTEGUMENTARY Hx Dermatological Problems: No - MUSCULOSKELETAL/RHEUMATOLOGICAL Hx Arthritis: Yes - GASTROINTESTINAL Hx Gastroesophageal Reflux: Yes - GENITOURINARY/GYNECOLOGICAL Hx Genitourinary Disorders: No Hx Incontinence: Yes (urine and stool) Hx Urinary Tract Infection: Yes - PSYCHIATRIC Hx Depression: Yes (questionable as per daughter) Other/Comment: dementia - SURGICAL HISTORY Hx Cardiac Catheterization: Yes (pt does not recall catherization) Hx Cholecystectomy: Yes Other/Comment: left breast benign cyst, left ovary removed - ANESTHESIA Hx Anesthesia: No Meds Allergies/Adverse Reactions: Allergies Allergy/AdvReac Type Severity Reaction Status Date / Time No Known Allergies Allergy Verified 01/09/18 09:20 - Medications Medications: Current Medications Clopidogrel Bisulfate (Plavix) 75 mg PO DAILY [facility] Last Admin: 06/02/18 09:40 Dose: Not Given Famotidine (Pepcid) 20 mg PO BID [facility] Last Admin: 06/02/18 09:40 Dose: Not Given Furosemide (Lasix) 20 mg PO DAILY [facility] Last Admin: 06/02/18 09:40 Dose: Not Given Potassium Chloride/Dextrose/Sod Cl (Potassium Chl 10 Meq In D5-1/2ns) 1,000 mls @ 80 mls/hr IV .[id number] [facility] Last Admin: 06/02/18 05:53 Dose: 80 mls/hr Ibuprofen (Motrin Tab) 400 mg PO Q6H PRN PRN Reason: Pain, moderate (4-7) Isosorbide Mononitrate (Imdur Er) 30 mg PO DAILY [facility] Last Admin: 06/02/18 09:40 Dose: Not Given Lisinopril (Zestril) 10 mg PO DAILY [facility] Last Admin: 06/02/18 09:40 Dose: Not Given Memantine (Namenda) 10 mg PO BID [facility] Last Admin: 06/02/18 09:40 Dose: Not Given Metoprolol Tartrate (Lopressor) 25 mg PO DAILY [facility] Last Admin: 06/02/18 09:40 Dose: Not Given Pantoprazole Sodium (Protonix Ec Tab) 40 mg PO DAILY [facility] Last Admin: 06/02/18 09:40 Dose: Not Given Physical Exam - Constitutional Appears: No Acute Distress - Head Exam Head Exam: NORMOCEPHALIC - Eye Exam Eye Exam: Normal appearance. absent: Scleral icterus - ENT Exam ENT Exam: Mucous Membranes Dry - Neck Exam Neck exam: Positive for: Normal Inspection - Respiratory Exam Respiratory Exam: Decreased Breath Sounds, NORMAL BREATHING PATTERN. absent: Rales, Wheezes, Respiratory Distress - Cardiovascular Exam Cardiovascular Exam: +S1, +S2 - GI/Abdominal Exam GI & Abdominal Exam: Normal Bowel Sounds, Soft. absent: Guarding, Organomegaly , Rebound, Tenderness - Extremities Exam Extremities exam: Negative for: calf tenderness, pedal edema - Neurological Exam Neurological exam: Alert (awake but has confusion, senile dementia, answer question with yes/no) - Skin Skin Exam: Dry, Warm Results - Vital Signs Recent Vital Signs: Last Vital Signs Temp 97.7 F 06/02/18 06:00 Pulse 90 06/02/18 10:00 Resp 20 06/02/18 06:00 BP 143/64 06/02/18 06:00 Pulse Ox 97 06/02/18 06:00 - Labs Result Diagrams: 05/30/18 06:30 05/30/18 06:30 Assessment & Plan - Assessment and Plan (Free Text) Assessment: ASSESSMENT: Poor appetite/?Failure to thrive Senile Dementia TIA GERD, h/o BE Elevated triponins UTI PLAN: on puree nectar thick diet on calorie count on Plavix, last dose noted was 06/01, patient not taking anything PO cardiology evaluation continue Protonix 40 mg daily on Pepcid BID, would recommend to decrease daily at HS on IVF for hydration Spoke to daughter who is also POA Elaine Perez [phone], discuss risk benefits of EGD/PEG , denies mother having Living will, Daughter would like to discuss this with family and PCP before making a decision. Patient is also pending cardiac evaluation. Thank you for this consult and for allowing us to participate in your patient care, will make further recommendations based upon clinical course. Discussed with Dr. Yates covering Dr. Min.
[2018-06-02 12:39] LABS: BLOOD UREA NITROGEN 9 mg/dL (7-21); CALCIUM 7.9 mg/dL (8.4-10.5); GFR NON-AFRICAN AMERICAN > 60
--- NOTE | 2018-06-02 18:35 | CP.PCM.PN ---
Subjective - Date & Time of Evaluation Date of Evaluation: 06/02/18 Time of Evaluation: 10:35 - Subjective Subjective: Comfortable, afebrile. Objective - Vital Signs/Intake and Output Vital Signs (last 24 hours): Temp Pulse Resp BP Pulse Ox 97.7 F 90 20 143/64 97 06/02/18 06:00 06/02/18 10:00 06/02/18 06:00 06/02/18 06:00 06/02/18 06:00 Intake and Output: 06/02/18 06/02/18 06:59 18:59 Intake Total 960 Balance 960 - Medications Medications: Current Medications Clopidogrel Bisulfate (Plavix) 75 mg PO DAILY [facility] Last Admin: 06/02/18 09:40 Dose: Not Given Famotidine (Pepcid) 20 mg PO BID [facility] Last Admin: 06/02/18 09:40 Dose: Not Given Furosemide (Lasix) 20 mg PO DAILY [facility] Last Admin: 06/02/18 09:40 Dose: Not Given Potassium Chloride/Dextrose/Sod Cl (Potassium Chl 10 Meq In D5-1/2ns) 1,000 mls @ 80 mls/hr IV .[id number] [facility] Last Admin: 06/02/18 05:53 Dose: 80 mls/hr Ibuprofen (Motrin Tab) 400 mg PO Q6H PRN PRN Reason: Pain, moderate (4-7) Isosorbide Mononitrate (Imdur Er) 30 mg PO DAILY [facility] Last Admin: 06/02/18 09:40 Dose: Not Given Lisinopril (Zestril) 10 mg PO DAILY [facility] Last Admin: 06/02/18 09:40 Dose: Not Given Memantine (Namenda) 10 mg PO BID [facility] Last Admin: 06/02/18 09:40 Dose: Not Given Metoprolol Tartrate (Lopressor) 25 mg PO DAILY [facility] Last Admin: 06/02/18 09:40 Dose: Not Given Pantoprazole Sodium (Protonix Ec Tab) 40 mg PO DAILY [facility] Last Admin: 06/02/18 09:40 Dose: Not Given - Labs Labs: 05/30/18 06:30 05/30/18 06:30 PT 13.9 SECONDS (9.4-12.5) H 05/28/18 10:30 INR 1.20 05/28/18 10:30 APTT 29.8 Seconds (25.1-36.5) 05/28/18 10:30 - Constitutional Appears: Chronically Ill - Head Exam Head Exam: NORMAL INSPECTION - Respiratory Exam Respiratory Exam: Decreased Breath Sounds - Cardiovascular Exam Cardiovascular Exam: +S1, +S2 - GI/Abdominal Exam GI & Abdominal Exam: Soft. absent: Tenderness Assessment and Plan - Assessment and Plan (Free Text) Plan: Assessment systemic inflammatory response syndrome due to NSTEMI, no evidence of active infection identified sacral area colonization with Enterococcus faecium history of sepsis due to gram negative bacilli UTI dementia history of TIA Riley's esophagus diverticulitis COPD GERD S/P thyroidectomy HTN CAD Plan reviewed CT scan finding which shows colonic splenic flexure area thickening, but patient does not have abdominal symptoms or diarrhea other cultures have been negative will continue to monitor off antibiotics since she is at risk for nosocomial infections
[2018-06-03 00:43] VITALS: RESP 19
[2018-06-03] MEDS: Potassium Chl 10 mEq in D5-1/2 1,000 ML IV SCH ×2 (04:30→19:30)
--- NOTE | 2018-06-03 08:13 | CON ---
Copied To: Fredis Yates MD Attending MD: Fredis Yates MD ADDENDUM DATE: 06/02/2018 An addendum to a consultation performed by Camille Valverde earlier today. HISTORY OF PRESENT ILLNESS: I have personally examined this patient myself. This is an 87-year-old female with advanced dementia, history of TIA whom we have been asked to see for possible PEG placement. The patient has had poor oral intake. Given her poor overall prognosis, I do not believe a PEG will be of any benefit to this patient. The patient's daughter in any event wanted to discuss PEG placement with the rest of the family. I agree with this. The patient also has positive troponins and is awaiting further cardiac evaluation. Would consider palliative care evaluation. Fredis Yates MD
[2018-06-03] MEDS: Pantoprazole 40 mg EC Tab PO SCH (09:57)
--- NOTE | 2018-06-03 10:29 | CP.PCM.CON ---
History of Present Illness - History of Present Illness History of Present Illness: Palliative consult requested by Dr Agnel Be Reason: Goals of care and advance care planning 87 with history of dementia, COPD, GERD, HTN, CAD who was brought to hospital via EMS on 05/28/18. Daughter reported the patient as being very lethargies and had not been eating or drinking for 3 days. Daughter also reported the patient as having watery diarrhea. CT of head showed no acute findings: CT of abdomen showed diverticulosis in the sigmoid colon, mild mural thickening is splenic flexure, possible colitis, unchanged soft tissue mass adjacent to right scapula. Chest x ray with residual LLL infiltrate/atelectasis. EKG NSR, LV hypertrophy, ST-T changes. Initial labs; bc 19.8, Hgb 12.6, Plt 477, Na 144, K 3.2, Bun 45, Creat 1.5, glucose 120, AST 131, Alt 36, LDH 755, TCK 2296, CKMb 6.1, Troponin 0.24, BNP 65907. blood and urine cultures negative, wound culture + for enterococcus faecium PMHx: Riley's esophagus, GERD, TIA, COPD, diverticulitis, dementia, osteoarthritis,spinal stenosis. PSH: cholesystectomy, oophorectomy, left breast biopsy Social History: Never smoker, no alcohol, or drug use. Lives is senior housing, family stays with her. Family History: Non contributory. Advance Care Planning:The patient does not have an Advanced Directive. Review of Systems: The patient complains of generalized body pain, 12 point review otherwise negative Past Patient History - Infectious Disease Hx of Infectious Diseases: None - Tetanus Immunizations Tetanus Immunization: Unknown - Past Social History Smoking Status: Never Smoked - CARDIAC Hx Cardiac Disorders: Yes (CAD) Hx Hypertension: Yes - PULMONARY Hx Chronic Obstructive Pulmonary Disease (COPD): Yes - NEUROLOGICAL Hx Dementia: Yes Hx Transient Ischemic Attacks (TIA): Yes - HEENT Hx HEENT Problems: No - RENAL Hx Chronic Kidney Disease: No - ENDOCRINE/METABOLIC Hx Hyperthyroidism: Yes Other/Comment: partial tyroidectomy - HEMATOLOGICAL/ONCOLOGICAL Hx Blood Disorders: No - INTEGUMENTARY Hx Dermatological Problems: No - MUSCULOSKELETAL/RHEUMATOLOGICAL Hx Arthritis: Yes - GASTROINTESTINAL Hx Gastroesophageal Reflux: Yes - GENITOURINARY/GYNECOLOGICAL Hx Genitourinary Disorders: No Hx Incontinence: Yes (urine and stool) Hx Urinary Tract Infection: Yes - PSYCHIATRIC Hx Depression: Yes (questionable as per daughter) Other/Comment: dementia - SURGICAL HISTORY Hx Cardiac Catheterization: Yes (pt does not recall catherization) Hx Cholecystectomy: Yes Other/Comment: left breast benign cyst, left ovary removed - ANESTHESIA Hx Anesthesia: No Meds Allergies/Adverse Reactions: Allergies Allergy/AdvReac Type Severity Reaction Status Date / Time No Known Allergies Allergy Verified 01/09/18 09:20 - Medications Medications: Current Medications Clopidogrel Bisulfate (Plavix) 75 mg PO DAILY [facility] Last Admin: 06/03/18 09:39 Dose: 75 mg Famotidine (Pepcid) 20 mg PO BID [facility] Last Admin: 06/03/18 09:44 Dose: 20 mg Furosemide (Lasix) 20 mg PO DAILY [facility] Last Admin: 06/03/18 09:40 Dose: 20 mg Potassium Chloride/Dextrose/Sod Cl (Potassium Chl 10 Meq In D5-1/2ns) 1,000 mls @ 80 mls/hr IV .[id number] [facility] Last Admin: 06/03/18 04:30 Dose: 80 mls/hr Ibuprofen (Motrin Tab) 400 mg PO Q6H PRN PRN Reason: Pain, moderate (4-7) Isosorbide Mononitrate (Imdur Er) 30 mg PO DAILY [facility] Last Admin: 06/03/18 09:40 Dose: 30 mg Lisinopril (Zestril) 10 mg PO DAILY [facility] Last Admin: 06/03/18 09:43 Dose: 10 mg Memantine (Namenda) 10 mg PO BID [facility] Last Admin: 06/03/18 09:39 Dose: 10 mg Metoprolol Tartrate (Lopressor) 25 mg PO DAILY [facility] Last Admin: 06/03/18 09:39 Dose: 25 mg Pantoprazole Sodium (Protonix Ec Tab) 40 mg PO DAILY [facility] Last Admin: 06/03/18 09:57 Dose: 40 mg Physical Exam - Constitutional Appears: Chronically Ill - Head Exam Head Exam: NORMOCEPHALIC - Eye Exam Eye Exam: Normal appearance, PERRL - ENT Exam ENT Exam: Mucous Membranes Moist, Normal Oropharynx - Neck Exam Neck exam: Positive for: Normal Inspection - Respiratory Exam Respiratory Exam: Decreased Breath Sounds, NORMAL BREATHING PATTERN - Cardiovascular Exam Cardiovascular Exam: REGULAR RHYTHM, +S1, +S2 - GI/Abdominal Exam GI & Abdominal Exam: Hypoactive Bowel Sounds, Soft Additional comments: no tenderness - Extremities Exam Extremities exam: Positive for: pedal edema, pedal pulses present - Back Exam Back exam: vertebral tenderness - Neurological Exam Neurological exam: Altered - Skin Skin Exam: Dry, Pallor Additional comments: stage 2 sacral decubiti Results - Vital Signs Recent Vital Signs: Last Vital Signs Temp 97.5 F L 06/03/18 06:00 Pulse 95 H 06/03/18 09:43 Resp 19 06/03/18 06:00 BP 182/99 H 06/03/18 09:43 Pulse Ox 96 06/03/18 06:00 - Labs Result Diagrams: 06/02/18 12:00 06/02/18 12:00 Labs: Laboratory Results - last 24 hr 06/02/18 06/02/18 12:00 12:00 WBC 9.1 D RBC 4.17 Hgb 11.6 L Hct 35.5 L MCV 85.1 MCH 27.8 MCHC 32.7 RDW 13.5 Plt Count 388 MPV 9.5 Gran % 60.0 Lymph % (Auto) 25.6 [place] % (Auto) 11.2 H Eos % (Auto) 2.8 Baso % (Auto) 0.4 Gran # 5.48 Lymph # (Auto) 2.3 [place] # (Auto) 1.0 H Eos # (Auto) 0.3 Baso # (Auto) 0.04 Sodium 141 Potassium 3.6 Chloride 107 Carbon Dioxide 26 Anion Gap 12 BUN 9 Creatinine 0.7 Est GFR ( Amer) > 60 Est GFR (Non-Af Amer) > 60 Random Glucose 126 H Calcium 7.9 L Assessment & Plan - Assessment and Plan (Free Text) Assessment: 87 year old female with history of GERD, COPD, CAD and dementia who is admitted with LLL infiltrate, sacral decubiti, CHARITO, N STEMI, SIRS and poor po intake. Speech/swallow evaluation continued to demonstrate limited PO intake, puree/ nectar thick liquids recommended. Evaluated by GI for PEG. Given poor prognosis , GI did not feel PEG would be of benefit for this patient. I spoke with patient's POA/daughter Elaine at length via phone. Elaine aware of mother's medical condition and verbalizes that her mother's health has been declining. States her mother has been primarily bed bound for the past few weeks. Daughter and I discussed benefits and burdens of PEG feeding. Daughter states that she doesn't think family want to have PEG placed. Advance care planing conversation regarding resuscitation status also took place. Daughter was clear that she does not want her mother to have CPR or intubation. She requesting that her mother be made DNR/DNI at this time. Daughter intends to come to hospital today so that a POLST directive can be completed. Option for hospice care also introduced. Brief explanation of hospice given to Elaine. Elaine open to further discussion regarding hospice when she visits later today Time spent in goals of care and advance care planning, 50 minutes Plan: Goals of care and advance care planning;discussed with Dr nAgel Be who is in agreement for DNR/DNI. Anorexia: Assist with meals, honey thickened/puree diet, dietary supplements Sacral decubiti: wound care SIRS: ID following Cardio/HTN: Continue Zetsril, Imdur, Lasix, Metoprolol
--- NOTE | 2018-06-03 12:22 | CP.PCM.PN ---
Subjective - Date & Time of Evaluation Date of Evaluation: 06/03/18 Time of Evaluation: 09:35 - Subjective Subjective: Comfortable, no fevers. Objective - Vital Signs/Intake and Output Vital Signs (last 24 hours): Temp Pulse Resp BP Pulse Ox 97.5 F L 81 19 144/78 96 06/03/18 06:00 06/03/18 06:00 06/03/18 06:00 06/03/18 06:00 06/03/18 06:00 Intake and Output: 06/03/18 06/03/18 06:59 18:59 Intake Total 960 Output Total 200 Balance 760 - Medications Medications: Current Medications Clopidogrel Bisulfate (Plavix) 75 mg PO DAILY [facility] Last Admin: 06/02/18 09:40 Dose: Not Given Famotidine (Pepcid) 20 mg PO BID [facility] Last Admin: 06/02/18 18:39 Dose: Not Given Furosemide (Lasix) 20 mg PO DAILY [facility] Last Admin: 06/02/18 09:40 Dose: Not Given Potassium Chloride/Dextrose/Sod Cl (Potassium Chl 10 Meq In D5-1/2ns) 1,000 mls @ 80 mls/hr IV .[id number] [facility] Last Admin: 06/03/18 04:30 Dose: 80 mls/hr Ibuprofen (Motrin Tab) 400 mg PO Q6H PRN PRN Reason: Pain, moderate (4-7) Isosorbide Mononitrate (Imdur Er) 30 mg PO DAILY [facility] Last Admin: 06/02/18 09:40 Dose: Not Given Lisinopril (Zestril) 10 mg PO DAILY [facility] Last Admin: 06/02/18 09:40 Dose: Not Given Memantine (Namenda) 10 mg PO BID [facility] Last Admin: 06/02/18 18:38 Dose: Not Given Metoprolol Tartrate (Lopressor) 25 mg PO DAILY [facility] Last Admin: 06/02/18 09:40 Dose: Not Given Pantoprazole Sodium (Protonix Ec Tab) 40 mg PO DAILY [facility] Last Admin: 06/02/18 09:40 Dose: Not Given - Labs Labs: 06/02/18 12:00 06/02/18 12:00 PT 13.9 SECONDS (9.4-12.5) H 05/28/18 10:30 INR 1.20 05/28/18 10:30 APTT 29.8 Seconds (25.1-36.5) 05/28/18 10:30 - Constitutional Appears: Chronically Ill - Head Exam Head Exam: NORMAL INSPECTION - Respiratory Exam Respiratory Exam: Decreased Breath Sounds - Cardiovascular Exam Cardiovascular Exam: +S1, +S2 - GI/Abdominal Exam GI & Abdominal Exam: Soft. absent: Tenderness Assessment and Plan - Assessment and Plan (Free Text) Plan: Assessment S/P systemic inflammatory response syndrome due to NSTEMI, no evidence of active infection identified sacral area colonization with Enterococcus faecium history of sepsis due to gram negative bacilli UTI dementia history of TIA Riley's esophagus diverticulitis COPD GERD S/P thyroidectomy HTN CAD Plan reviewed CT scan finding which shows colonic splenic flexure area thickening, but patient does not have abdominal symptoms or diarrhea other cultures have been negative will continue to monitor off antibiotics since she is at risk for hospital- acquired infections overall prognosis is poor
[2018-06-04 05:55] VITALS: O2SAT 96
--- NOTE | 2018-06-04 08:10 | PN ---
Copied To: aPn Be MD Attending MD: Pan Be MD DATE: 06/03/2018 DAILY PROGRESS NOTE SUBJECTIVE: The patient was seen this Saturdayday in room 275, bed 1 with her daughter and granddaughter, both named Shavon, at the bedside. Patient was bit confused, having difficulty eating, being fed patiently by the nurse with aspiration precautions in effect. Patient's dementia has worsened recently. She was communicative or talkative with me. I spoke with patient's daughter and granddaughter. Later in the afternoon, I spoke with patient's other daughter, Laurence who is the power of civil attorney about the severity of her condition. We spoke about options including continued aggressive treatment versus focusing on comfort measures earlier in the day. Her family spoke with our palliative care nurse specialist and do not resuscitate order is in place after my conversation with the family. The family will discuss the future plans, PEG feeding tubes versus hospice and let us know the results of the family discussion tomorrow. I did not discuss feeding tubes, this onset came up elsewhere perhaps yesterday. Pan Be MD [facility]
[2018-06-04] MEDS: Potassium Chl 10 mEq in D5-1/2 1,000 ML IV SCH ×3 (08:26→18:50)
[2018-06-04] MEDS: Pantoprazole 40 mg EC Tab PO SCH (09:49)
--- NOTE | 2018-06-04 09:51 | CP.PCM.PN ---
Subjective - Date & Time of Evaluation Date of Evaluation: 06/04/18 Time of Evaluation: 09:00 - Subjective Subjective: S&E at bedside, family at bedside, feeding patient who is taking small bites, patient is awake and alert w confusion. Pt reported to have 2 BM last night no reports of melena or BRBPR. No c/o N/V abdominal pain, sob or chest pain. No acute overnight events . Objective - Vital Signs/Intake and Output Vital Signs (last 24 hours): Temp Pulse Resp BP Pulse Ox 97.3 F L 87 19 120/63 96 06/04/18 05:54 06/04/18 05:54 06/04/18 05:54 06/04/18 05:54 06/04/18 05:54 Intake and Output: 06/04/18 06/04/18 06:59 18:59 Intake Total 990 Output Total 250 Balance 740 - Medications Medications: Current Medications Clopidogrel Bisulfate (Plavix) 75 mg PO DAILY [facility] Last Admin: 06/03/18 09:39 Dose: 75 mg Famotidine (Pepcid) 20 mg PO BID [facility] Last Admin: 06/03/18 17:29 Dose: 20 mg Furosemide (Lasix) 20 mg PO DAILY [facility] Last Admin: 06/03/18 09:40 Dose: 20 mg Potassium Chloride/Dextrose/Sod Cl (Potassium Chl 10 Meq In D5-1/2ns) 1,000 mls @ 80 mls/hr IV .[id number] [facility] Last Admin: 06/04/18 08:26 Dose: Not Given Ibuprofen (Motrin Tab) 400 mg PO Q6H PRN PRN Reason: Pain, moderate (4-7) Last Admin: 06/03/18 12:26 Dose: 400 mg Isosorbide Mononitrate (Imdur Er) 30 mg PO DAILY [facility] Last Admin: 06/03/18 09:40 Dose: 30 mg Lisinopril (Zestril) 10 mg PO DAILY [facility] Last Admin: 06/03/18 09:43 Dose: 10 mg Memantine (Namenda) 10 mg PO BID [facility] Last Admin: 06/03/18 17:28 Dose: 10 mg Metoprolol Tartrate (Lopressor) 25 mg PO DAILY [facility] Last Admin: 06/03/18 09:39 Dose: 25 mg Pantoprazole Sodium (Protonix Ec Tab) 40 mg PO DAILY [facility] Last Admin: 06/03/18 09:57 Dose: 40 mg - Labs Labs: 06/02/18 12:00 06/02/18 12:00 PT 13.9 SECONDS (9.4-12.5) H 05/28/18 10:30 INR 1.20 05/28/18 10:30 APTT 29.8 Seconds (25.1-36.5) 05/28/18 10:30 - Constitutional Appears: No Acute Distress - Head Exam Head Exam: NORMOCEPHALIC - Eye Exam Eye Exam: Normal appearance. absent: Scleral icterus - ENT Exam ENT Exam: Mucous Membranes Dry - Neck Exam Neck Exam: Normal Inspection - Respiratory Exam Respiratory Exam: NORMAL BREATHING PATTERN. absent: Respiratory Distress - Cardiovascular Exam Cardiovascular Exam: +S1, +S2 - GI/Abdominal Exam GI & Abdominal Exam: Soft, Normal Bowel Sounds. absent: Guarding, Tenderness, Rebound - Extremities Exam Extremities Exam: absent: Calf Tenderness - Neurological Exam Neurological Exam: Alert, Awake. absent: Oriented x3 (confused) - Skin Skin Exam: Dry, Warm Assessment and Plan - Assessment and Plan (Free Text) Assessment: ASSESSMENT: Poor appetite/?Failure to thrive Senile Dementia TIA GERD, h/o BE Elevated triponins UTI PLAN: on puree nectar thick diet w/ aspiration precautions on Plavix cardiology evaluation continue Protonix 40 mg daily on Pepcid BID, would recommend to decrease daily at HS on IVF for hydration Spoke to daughter who is also LASHAY Perez at bedside, family does not want PEG tube at this time, they are having meeting this morning with Palliative services discuss option of hospice. Will currently sign off, please reconsult as neccessary. Thank you for this consult and for allowing us to participate in your patient care. Discussed with Dr. Yates covering Dr. Min.
--- NOTE | 2018-06-04 10:11 | CP.PCM.PN ---
Subjective - Date & Time of Evaluation Date of Evaluation: 06/04/18 Time of Evaluation: 10:00 - Subjective Subjective: Alert, confused. eating small amounts of soft food Objective - Vital Signs/Intake and Output Vital Signs (last 24 hours): Temp Pulse Resp BP Pulse Ox 97.3 F L 84 19 137/70 96 06/04/18 05:54 06/04/18 09:51 06/04/18 05:54 06/04/18 09:51 06/04/18 05:54 Intake and Output: 06/04/18 06/04/18 06:59 18:59 Intake Total 990 Output Total 250 Balance 740 - Medications Medications: Current Medications Clopidogrel Bisulfate (Plavix) 75 mg PO DAILY [facility] Last Admin: 06/04/18 09:50 Dose: 75 mg Famotidine (Pepcid) 20 mg PO BID [facility] Last Admin: 06/04/18 09:50 Dose: 20 mg Furosemide (Lasix) 20 mg PO DAILY [facility] Last Admin: 06/04/18 09:50 Dose: 20 mg Potassium Chloride/Dextrose/Sod Cl (Potassium Chl 10 Meq In D5-1/2ns) 1,000 mls @ 80 mls/hr IV .[id number] [facility] Last Admin: 06/04/18 08:26 Dose: Not Given Ibuprofen (Motrin Tab) 400 mg PO Q6H PRN PRN Reason: Pain, moderate (4-7) Last Admin: 06/03/18 12:26 Dose: 400 mg Isosorbide Mononitrate (Imdur Er) 30 mg PO DAILY [facility] Last Admin: 06/04/18 09:50 Dose: 30 mg Lisinopril (Zestril) 10 mg PO DAILY [facility] Last Admin: 06/04/18 09:51 Dose: 10 mg Memantine (Namenda) 10 mg PO BID [facility] Last Admin: 06/04/18 09:50 Dose: 10 mg Metoprolol Tartrate (Lopressor) 25 mg PO DAILY [facility] Last Admin: 06/04/18 09:51 Dose: 25 mg Pantoprazole Sodium (Protonix Ec Tab) 40 mg PO DAILY [facility] Last Admin: 06/04/18 09:49 Dose: 40 mg - Labs Labs: 06/02/18 12:00 06/02/18 12:00 PT 13.9 SECONDS (9.4-12.5) H 05/28/18 10:30 INR 1.20 05/28/18 10:30 APTT 29.8 Seconds (25.1-36.5) 05/28/18 10:30 - Constitutional Appears: Chronically Ill - Head Exam Head Exam: NORMAL INSPECTION - Eye Exam Eye Exam: Normal appearance - ENT Exam ENT Exam: Mucous Membranes Moist, Normal Oropharynx - Respiratory Exam Respiratory Exam: Decreased Breath Sounds, NORMAL BREATHING PATTERN - Cardiovascular Exam Cardiovascular Exam: REGULAR RHYTHM, +S1, +S2 - GI/Abdominal Exam GI & Abdominal Exam: Soft, Hypoactive Bowel Sounds - Extremities Exam Extremities Exam: Pedal Edema - Back Exam Back Exam: vertebral tenderness - Skin Skin Exam: Dry, Warm Assessment and Plan - Assessment and Plan (Free Text) Assessment: 87 year old female with history of dementia, COPD,CAD who was admitted with leukocytisis, SIRS, LLL infiltrate, CHARITO, N-STEMI and poor oral intake. I met with Ms. Perez's daughter Elaine(POA). A very lengthy discussion ensued about option for hospice vs routine medical care. Family recognizes the decline in patients health and indicated that they do not wish to hospitalize in the future. Family does not want PEG or any invasive procedures. Family wants her kept comfortably at home. Hospice services explained in detail, questions answered. Family in agreement for hospice services and will meet with [facility]soice liaison later today. Psychosocial support provided. POLST: DNR/DNI directive completed, a copy is on the chart Time spent with family in goals of care discussion, 50 minutes Plan: Goals of care and advance care planning; POLST:DNR/DNI Hospice evaluation Wound care Dietary counseling
--- NOTE | 2018-06-04 11:48 | CP.PCM.PN ---
Subjective - Date & Time of Evaluation Date of Evaluation: 06/04/18 Time of Evaluation: 10:35 - Subjective Subjective: No fevers, not in distress, comfortable in bed. Objective - Vital Signs/Intake and Output Vital Signs (last 24 hours): Temp Pulse Resp BP Pulse Ox 97.3 F L 87 19 120/63 96 06/04/18 05:54 06/04/18 05:54 06/04/18 05:54 06/04/18 05:54 06/04/18 05:54 Intake and Output: 06/04/18 06/04/18 06:59 18:59 Intake Total 990 Output Total 250 Balance 740 - Medications Medications: Current Medications Clopidogrel Bisulfate (Plavix) 75 mg PO DAILY [facility] Last Admin: 06/03/18 09:39 Dose: 75 mg Famotidine (Pepcid) 20 mg PO BID [facility] Last Admin: 06/03/18 17:29 Dose: 20 mg Furosemide (Lasix) 20 mg PO DAILY [facility] Last Admin: 06/03/18 09:40 Dose: 20 mg Potassium Chloride/Dextrose/Sod Cl (Potassium Chl 10 Meq In D5-1/2ns) 1,000 mls @ 80 mls/hr IV .[id number] [facility] Last Admin: 06/03/18 19:30 Dose: 80 mls/hr Ibuprofen (Motrin Tab) 400 mg PO Q6H PRN PRN Reason: Pain, moderate (4-7) Last Admin: 06/03/18 12:26 Dose: 400 mg Isosorbide Mononitrate (Imdur Er) 30 mg PO DAILY [facility] Last Admin: 06/03/18 09:40 Dose: 30 mg Lisinopril (Zestril) 10 mg PO DAILY [facility] Last Admin: 06/03/18 09:43 Dose: 10 mg Memantine (Namenda) 10 mg PO BID [facility] Last Admin: 06/03/18 17:28 Dose: 10 mg Metoprolol Tartrate (Lopressor) 25 mg PO DAILY [facility] Last Admin: 06/03/18 09:39 Dose: 25 mg Pantoprazole Sodium (Protonix Ec Tab) 40 mg PO DAILY [facility] Last Admin: 06/03/18 09:57 Dose: 40 mg - Labs Labs: 06/02/18 12:00 06/02/18 12:00 PT 13.9 SECONDS (9.4-12.5) H 05/28/18 10:30 INR 1.20 05/28/18 10:30 APTT 29.8 Seconds (25.1-36.5) 05/28/18 10:30 - Constitutional Appears: Non-toxic, Chronically Ill - Head Exam Head Exam: NORMAL INSPECTION - Respiratory Exam Respiratory Exam: Decreased Breath Sounds - Cardiovascular Exam Cardiovascular Exam: +S1, +S2 - GI/Abdominal Exam GI & Abdominal Exam: Soft. absent: Tenderness Assessment and Plan - Assessment and Plan (Free Text) Plan: Assessment S/P systemic inflammatory response syndrome due to NSTEMI, no evidence of active infection identified sacral area colonization with Enterococcus faecium history of sepsis due to gram negative bacilli UTI dementia history of TIA Riley's esophagus diverticulitis COPD GERD S/P thyroidectomy HTN CAD Plan reviewed CT scan finding which shows colonic splenic flexure area thickening, but patient does not have abdominal symptoms or diarrhea other cultures have been negative will continue to monitor off antibiotics since she is at risk for healthcare- associated infections overall prognosis is poor
[2018-06-04 11:56] VITALS: BP 132/67; TEMP 98.5
[2018-06-04 18:57] VITALS: PULSE 89
--- NOTE | 2018-06-05 08:27 | DS ---
Copied To: Darron Be MD Attending MD: Darron Be MD DISCHARGE SUMMARY: The patient is an 87-year-old female who was admitted to [facility] on 05/31/2018 with dehydration, mental status changes. The patient apparently refused to eat or drink anything at home for the past 3 days where she is closely followed by her family. They became concerned with her not eating and drinking, therefore, I was contacted and suggested hospitalization. This is one of several hospitalizations for the patient. She was recently discharged about 2 weeks ago with mental status changes, dehydration and a urinary tract infection. She is known to have a past medical history positive for senile dementia, status post transient ischemic attacks, history of Riley's esophagitis, diverticulosis, GERD, COPD, hypertension, osteoarthritis with spinal stenosis. She is status post left cholecystectomy, status post left oophorectomy, status post left breast biopsy. During her hospital stay, the patient was treated with IV fluids. She received Levaquin for a urinary tract infection. She had some small clean-looking decubitus ulcers over the sacral area, these were evaluated by Dr. Martin, who felt the enterococcal culture taken from there was more of a contaminant and the patient's antibiotics were discontinued. She was evaluated by Dr. Yates, Gastroenterology concerning PEG tube placement. The patient however did have positive troponins noted during the hospital stay. After long discussion with the family, the family was left with options of placing a PEG tube to keep the patient rehydrated and maintain a nutritional status versus no PEG tube placement and have the patient placed on hospice care to return to home under comfort measures. After the patient discussed it amongst themselves, DNR/DNI order was written. The patient was placed on hospice care and discharged to home. FINAL DIAGNOSES. 1. Dehydration. 2. Mental status changes. 3. Senile dementia. 4. Depression. 5. Chronic obstructive pulmonary disease. 6. Hypertension. 7. Riley's esophagitis. 8. Diverticulosis. 9. Gastroesophageal reflux disease. Darron Be MD
== END 2018-06-04 19:33 | disposition hospice, home (50) | DRG 641 ==
LOC: ED 09:57 → ERH 13:38 → 2RSO 14:25
PROVIDERS: ADMIT Internal Medicine; ATTEND Internal Medicine
DX: E86.0 Dehydration (principal); R65.10 Systemic inflammatory response syndrome (SIRS) of non-infectious origin without acute organ dysfunction; N17.9 Acute kidney failure, unspecified; N39.0 Urinary tract infection, site not specified; J98.11 Atelectasis; I11.9 Hypertensive heart disease without heart failure; L89.152 Pressure ulcer of sacral region, stage 2; B95.2 Enterococcus as the cause of diseases classified elsewhere; I25.10 Atherosclerotic heart disease of native coronary artery without angina pectoris; K22.70 Barrett's esophagus without dysplasia; K21.9 Gastro-esophageal reflux disease without esophagitis; F03.90 Unspecified dementia, unspecified severity, without behavioral disturbance, psychotic disturbance, mood disturbance, and anxiety; R62.7 Adult failure to thrive; E78.00 Pure hypercholesterolemia, unspecified; J43.9 Emphysema, unspecified; K57.30 Diverticulosis of large intestine without perforation or abscess without bleeding; E89.0 Postprocedural hypothyroidism; M48.00 Spinal stenosis, site unspecified; R63.0 Anorexia; Z66 Do not resuscitate; Z51.5 Encounter for palliative care; M19.90 Unspecified osteoarthritis, unspecified site; F32.9 Major depressive disorder, single episode, unspecified; J44.9 Chronic obstructive pulmonary disease, unspecified; R41.82 Altered mental status, unspecified; Z86.73 Personal history of transient ischemic attack (TIA), and cerebral infarction without residual deficits; Z68.27 Body mass index [BMI] 27.0-27.9, adult